=== PATIENT | male | born 1995 | race American Indian/Alaskan Native ===

== ENCOUNTER 2019-06-14 10:40 | Observation (INO) | payer MEDICAID, OTHER, SELFPAY ==
[2019-06-14] VITALS (11 sets, daily range): BP systolic 129–154; BP diastolic 58–84; PULSE 86–104; RESP 15–28; TEMP 36.3–37.1; O2SAT 92–99; BMI 58.0
--- NOTE | 2019-06-14 10:52 | DI.RAD.S_ITS ---
PROCEDURE: XR CHEST 1V INDICATIONS: dka TECHNIQUE: One view of the chest was acquired. COMPARISON: [facility], CHEST 2 VIEW, 05/16/2009, 21:08. [facility], CHEST 2 VIEW, 07/15/2010, 13:25. FINDINGS: Surgical changes and devices: None. Lungs and pleura: An incomplete inspiratory result is noted, causing a crowded appearance to the lung markings. Interstitial prominence is seen. No large pneumothorax or significant pleural effusions are seen. Mediastinum: Mediastinal contours appear normal. Heart size is normal. Bones and chest wall: No suspicious bony lesions. Overlying soft tissues appear unremarkable. IMPRESSION: Low lung volumes with interstitial prominence. Differential diagnosis includes pulmonary edema and artifact from an incomplete inspiratory result. As clinically appropriate, a short-term followup chest series (with PA and lateral views) performed in deep inspiration is suggested for further evaluation. Dictated by: Jake Martins M.D. on 06/14/2019 at 10:21 Approved by: Jake Martins M.D. on 06/14/2019 at 10:22
--- NOTE | 2019-06-14 11:00 | ED_ITS ---
HPI - General Adult General Chief complaint: Diabetic Problem Stated complaint: vomiting/high glucose 700s/hungry/thirsty yest Time Seen by Provider: 06/14/19 10:45 Source: patient Mode of arrival: Wheelchair Limitations: no limitations History of Present Illness HPI narrative: Patient is a 24 year old obese male presenting with elevated blood sugar. He is here at the request of his PCP. He had blood work done as an outpatient yesterday his blood sugar yesterday was about 700. He has been vomiting off and on for the last week no real abdominal pain. He denies feeling nauseated no vomiting now no abdominal pain. He does not have a history of diabetes he is currently not on any diabetic medication. Related Data Home Medications Medication Instructions Recorded Confirmed No Known Home Medications 06/14/19 06/14/19 Allergies Allergy/AdvReac Type Severity Reaction Status Date / Time No Known Drug Allergies Allergy Unknown Unverified 11/14/17 13:00 Review of Systems Review of Systems ROS Unobtainable: All systems reviewed & are unremarkable except as noted in HPI and below Constitutional Constitutional: Denies chills, Denies fever(s), Denies lethargy and Denies weakness Eyes Eyes: Denies change in vision, Denies eye discharge, Denies irritation and Denies loss of vision ENT Ears, Nose, Mouth, and Throat: Denies change in voice, Denies neck pain and Denies sore throat Cardiovascular Cardiovascular: Denies chest pain, Denies irregular heart rhythm, Denies lightheadedness, Denies palpitations, Denies dyspnea, Denies dyspnea on exertion and Denies orthopnea Respiratory Respiratory: Denies cough, Denies dyspnea, Denies dyspnea on exertion and Denies wheezing Gastrointestinal Gastrointestinal: Reports as per HPI Genitourinary Genitourinary: Denies hematuria, Denies flank pain, Denies urinary incontinence and Denies urinary urgency Musculoskeletal Musculoskeletal: Denies neck pain Integumentary/Breasts Skin/Breast: Denies pruritus, Denies erythema, Denies rash and Denies wounds Neurologic Neurologic: Denies loss of vision and Denies weakness Endocrine Endocrine: Denies palpitations Allergic/Immunologic Allergic/Immunologic: Denies wheezing Patient History Medical History Patient denies medical problems (Acute) Social History household members: family Smoking Status: Never smoker alcohol intake: never alcohol intake frequency: 0-2 drinks per day Substance Use Type: does not use Exam Initial Vital Signs Initial Vital Signs: Vital Signs Temperature 97.8 F 06/14/19 10:56 Pulse Rate 86 06/14/19 10:56 Respiratory Rate 16 06/14/19 10:56 Blood Pressure 154/84 H 06/14/19 10:56 Pulse Oximetry 97 06/14/19 10:56 GENERAL: Overweight well-appearing male and in no acute distress. HEENT: Head atraumatic,EOMI, pupils reactive CARDIOVASCULAR: Regular rate and rhythm without murmurs, rubs or gallops. RESPIRATORY: Breath sounds equal bilaterally, no wheezes rales or rhonchi. ABDOMEN: Soft, obese piece nontender no guarding no rebound EXTREMITIES: Normal range of motion, no clubbing or edema. Neurovascularly intact NEUROLOGICAL: Alert and oriented x4.Normal gait and speech. Cranial nerves II through XII grossly intact. SKIN: Warm, dry, no laceration, no petechiae, no rashes or lesions. Course Orders Ordered: ED Orders 06/14/19 10:52 XR chest 1V Stat EKG-12 Lead Stat 06/14/19 11:15 Complete Blood Count AUTO DIFF Stat Comprehensive Metabolic Panel Stat Ketones (Beta-Hydroxybutyrate) Stat Lactate (Lactic Acid) Stat Procalcitonin Stat Venous Blood Gas Stat 06/14/19 12:32 Blood Culture Stat Hemoglobin A1C% w Est Avg Glu Stat Discontinued Medications Sodium Chloride (Normal Saline 0.9%) 1,000 mls @ 1,000 mls/hr IV BOLUS ONE Stop: 06/14/19 11:51 Last Infusion: 06/14/19 13:25 Dose: 0 mls/hr Documented by: Admin: 06/14/19 11:47 Dose: 1,000 mls/hr Documented by: FRANCISCO Insulin Human Regular (Humulin R) 10 unit IV NOW ONE Stop: 06/14/19 13:10 Last Admin: 06/14/19 13:29 Dose: 10 unit Documented by: FRANCISCO Cosigned by: PHAM Vital Signs Vital signs: Vital Signs - 8 hr 06/14/19 10:56 06/14/19 11:36 06/14/19 12:00 Temperature 97.8 F Pulse Rate 94 H 90 101 H Respiratory Rate 18 28 H 24 Blood Pressure 154/84 H Blood Pressure [Right Arm] 154/84 H 134/74 130/74 Pulse Oximetry 97 92 98 06/14/19 13:00 Temperature Pulse Rate 93 H Respiratory Rate 27 H Blood Pressure Blood Pressure [Right Arm] 134/78 Pulse Oximetry 96 Medical Decision Making Lab Data Lab results reviewed: Yes I reviewed the patient's lab results. Lab results narrative: anion gap 18 Result diagrams: 06/14/19 11:15 06/14/19 11:15 Labs: Lab Results 06/14/19 06/14/19 06/14/19 Range/Units 11:15 11:15 11:15 WBC 9.9 (4.5-11.0) X10^3/uL RBC 5.29 (4.5-5.9) X10^6/uL Hgb 13.7 (13.5-17.5) g/dL Hct 40.7 L (41-53) % MCV 77.0 L (80-100) fL MCH 25.9 L (26-34) PG MCHC 33.6 (30-36) % RDW 17.6 H (11.6-14.8) % Plt Count 227 (150-400) X10^3/uL Neut % (Auto) 62.7 (50-75) % Lymph % (Auto) 30.6 (25-40) % [place] % (Auto) 4.8 (3-14) % Eos % (Auto) 0.8 L (2-4) % Baso % (Auto) 1.1 (0-2) % Neut # (Auto) 6200 (3245-5483) /uL Lymph # (Auto) 3000 (3711-9114) /uL [place] # (Auto) 500 (0-900) /uL Eos # (Auto) 100 (0-450) /uL Baso # (Auto) 100 (0-100) /uL VBG pH (7.33-7.43) VBG pCO2 (45-50) mmHg VBG pO2 (35-45) mmHg VBG HCO3 (23-28) mmol/L VBG Total CO2 (24-29) mmol/L VBG O2 Saturation (70-75) % VBG Base Excess (0-4) mmol/L Sodium 134 L (137-145) mmol/L Potassium 3.3 L (3.4-5.1) mmol/L Chloride 99 (98-107) mmol/L Carbon Dioxide 17 L (22-32) mmol/L BUN 10 (9-20) mg/dL Creatinine 0.80 (0.66-1.25) mg/dL Estimated GFR > 60.0 (>60) mL/min BUN/Creatinine Ratio 12.5 (6-22) Glucose 449 H (70-100) mg/dL Hemoglobin A1c (4.0-6.0) % Lactate (0.7-2.1) mmol/L Calcium 8.1 L (8.4-10.2) mg/dL Total Bilirubin 0.6 (0.2-1.3) mg/dL AST 21 (17-59) IU/L ALT 29 (<50) IU/L Alkaline Phosphatase 110 (38-126) U/L Total Protein 8.2 (6.3-8.2) g/dL Albumin 4.1 (3.5-5.0) g/dL Globulin 4.1 (1.7-4.1) g/dL Albumin/Globulin Ratio 1.0 (1.0-2.8) Procalcitonin < 0.05 (<0.5) ng/mL Ketones 6.50 H (<0.27) mmol/L 06/14/19 06/14/19 06/14/19 Range/Units 11:15 11:15 12:32 WBC (4.5-11.0) X10^3/uL RBC (4.5-5.9) X10^6/uL Hgb (13.5-17.5) g/dL Hct (41-53) % MCV (80-100) fL MCH (26-34) PG MCHC (30-36) % RDW (11.6-14.8) % Plt Count (150-400) X10^3/uL Neut % (Auto) (50-75) % Lymph % (Auto) (25-40) % [place] % (Auto) (3-14) % Eos % (Auto) (2-4) % Baso % (Auto) (0-2) % Neut # (Auto) (6580-4755) /uL Lymph # (Auto) (6550-0358) /uL [place] # (Auto) (0-900) /uL Eos # (Auto) (0-450) /uL Baso # (Auto) (0-100) /uL VBG pH 7.35 (7.33-7.43) VBG pCO2 40.4 L (45-50) mmHg VBG pO2 23 L (35-45) mmHg VBG HCO3 22 L (23-28) mmol/L VBG Total CO2 23 L (24-29) mmol/L VBG O2 Saturation 37 L (70-75) % VBG Base Excess -4.0 L (0-4) mmol/L Sodium (137-145) mmol/L Potassium (3.4-5.1) mmol/L Chloride (98-107) mmol/L Carbon Dioxide (22-32) mmol/L BUN (9-20) mg/dL Creatinine (0.66-1.25) mg/dL Estimated GFR (>60) mL/min BUN/Creatinine Ratio (6-22) Glucose (70-100) mg/dL Hemoglobin A1c 11.8 H (4.0-6.0) % Lactate 1.1 (0.7-2.1) mmol/L Calcium (8.4-10.2) mg/dL Total Bilirubin (0.2-1.3) mg/dL AST (17-59) IU/L ALT (<50) IU/L Alkaline Phosphatase (38-126) U/L Total Protein (6.3-8.2) g/dL Albumin (3.5-5.0) g/dL Globulin (1.7-4.1) g/dL Albumin/Globulin Ratio (1.0-2.8) Procalcitonin (<0.5) ng/mL Ketones (<0.27) mmol/L Point of Care Testing Glucose POC 376 Urine Dip Bedside Urine Glucose 500 mg/dl Bedside Urine Bilirubin - Negative Bedside Urine Ketone +++ 80 Urine Specific Pauline 1.020 Bedside Urine Occult Blood - Negative Bedside Urine pH 5.5 Bedside Urine Protein +/- 15 Bedside Urine Urobilinogen - Negative Bedside Urine Nitrite - Negative Bedside Urine Leukocytes - Negative Esterase Point of care testing: Point of Care Testing Glucose POC 376 Urine Dip Bedside Urine Glucose 500 mg/dl Bedside Urine Bilirubin - Negative Bedside Urine Ketone +++ 80 Urine Specific Pauline 1.020 Bedside Urine Occult Blood - Negative Bedside Urine pH 5.5 Bedside Urine Protein +/- 15 Bedside Urine Urobilinogen - Negative Bedside Urine Nitrite - Negative Bedside Urine Leukocytes - Negative Esterase Imaging Data Chest x-ray: Radiologist's impression: PROCEDURE: XR CHEST 1V INDICATIONS: dka TECHNIQUE: One view of the chest was acquired. COMPARISON: [facility], , CHEST 2 VIEW, 05/16/2009, 21:08. [facility], CHEST 2 VIEW, 07/15/2010, 13:25. FINDINGS: Surgical changes and devices: None. Lungs and pleura: An incomplete inspiratory result is noted, causing a crowded appearance to the lung markings. Interstitial prominence is seen. No large pneumothorax or significant pleural effusions are seen. Mediastinum: Mediastinal contours appear normal. Heart size is normal. Bones and chest wall: No suspicious bony lesions. Overlying soft tissues appear unremarkable. IMPRESSION: Low lung volumes with interstitial prominence. Differential diagnosis includes pulmonary edema and artifact from an incomplete inspiratory result. As clinically appropriate, a short-term followup chest series (with PA and lateral views) performed in deep inspiration is suggested for further evaluation. Dictated by: Jake Martins M.D. on 06/14/2019 at 10:21 Approved by: Jake Martins M.D. on 06/14/2019 at 10:22 MDM Narrative Medical decision making narrative: Patient is an overweight young male with newly diagnosed diabetes. He has an anion gap and ketones. He is no longer vomiting in the ED in fact he has not vomited once Zofran and IV fluids have helped him. He overall is better. He is not acidotic, but does have quite elevated ketones and glucose, along with mild we elevated anion gap. Dr. lynn has been updated patient's symptoms test results. Patient admitted to observation Discharge Plan Departure Patient Disposition: Admitted as Observation Clinical Impression: Hyperglycemia Discharge Date/Time: 06/14/19 13:45 Admit Date/Time: 06/14/19 13:15 Admit Provider: Cathleen Lynn
[2019-06-14 11:31] LABS: HCO3 VBG 22 mmol/L (23-28); Oxygen Saturation VBG 37 % (70-75); PCO2 VBG 40.4 mmHg (45-50); PO2 VBG 23 mmHg (35-45); Total CO2 VBG 23 mmol/L (24-29); pH VBG 7.35 (7.33-7.43)
[2019-06-14] MEDS: SODIUM CHLORIDE 0.9% 1,000 ML 1000 ML IV (11:47)
[2019-06-14 11:50] LABS: Add Manual Diff / Slide Review NO; Basophils Absolute Auto 100 /uL (0-100); Basophils Percent Auto 1.1 % (0-2); Eosinophils Absolute Auto 100 /uL (0-450); Eosinophils Percent Auto 0.8 % (2-4); Hematocrit 40.7 % (41-53); Hemoglobin 13.7 g/dL (13.5-17.5); Lymphocytes Absolute Auto 3000 /uL (1100-4500); Lymphocytes Percent Auto 30.6 % (25-40); Mean Corpuscular HGB Conc 33.6 % (30-36); Mean Corpuscular Hemoglobin 25.9 PG (26-34); Monocytes Absolute Auto 500 /uL (0-900); Monocytes Percent Auto 4.8 % (3-14); Neutrophils Absolute Auto 6200 /uL (1500-7000); Neutrophils Percent Auto 62.7 % (50-75); Platelet Count 227 X10^3/uL (150-400); Red Blood Cell Count 5.29 X10^6/uL (4.5-5.9); Red Cell Distribution Width 17.6 % (11.6-14.8); White Blood Cell Count 9.9 X10^3/uL (4.5-11.0)
[2019-06-14 12:15] LABS: Lactate (Lactic Acid) 1.1 mmol/L (0.7-2.1)
[2019-06-14 12:16] LABS: Alanine Aminotransferase 29 IU/L (<50); Albumin 4.1 g/dL (3.5-5.0); Alkaline Phosphatase 110 U/L (38-126); Aspartate Aminotransferase 21 IU/L (17-59); BUN Creatinine Ratio 12.5 (6-22); Bilirubin Total 0.6 mg/dL (0.2-1.3); Blood Urea Nitrogen 10 mg/dL (9-20); Calcium 8.1 mg/dL (8.4-10.2); Carbon Dioxide 17 mmol/L (22-32); Chloride 99 mmol/L (98-107); Estimated Glomerular Filt Rate > 60.0 mL/min (>60); Globulin 4.1 g/dL (1.7-4.1); Glucose 449 mg/dL (70-100); HEMOLYSIS < 15 (0-50); Potassium 3.3 mmol/L (3.4-5.1); Sodium 134 mmol/L (137-145); Total Protein 8.2 g/dL (6.3-8.2)
[2019-06-14 12:50] LABS: Procalcitonin < 0.05 ng/mL (<0.5)
[2019-06-14 13:07] LABS: Hemoglobin A1C% w Est Avg Glu 11.8 % (4.0-6.0)
[2019-06-14] MEDS: INSULIN REGULAR 100 UNIT/ML 3 ML VIAL 10 UNIT IV (13:29)
--- NOTE | 2019-06-14 15:23 | PC.NURSE ---
pt admitted from ed with current blood glu 339, lungs clear and vss- new dx of type 2 dm
[2019-06-14] MEDS: INSULIN ASPART 100 UNIT/ML INSULN PEN SUBCUT ×2 (16:29→20:22)
[2019-06-14] MEDS: METFORMIN HCL 500 MG TABLET 1000 MG PO (16:30)
[2019-06-14] MEDS: SODIUM CHLORIDE 0.9% 1,000 ML 200 ML IV ×2 (16:32→20:56)
[2019-06-14 17:42] LABS: Bacteria Urine None Seen; WBC Urine None Seen (0-5/HPF)
[2019-06-14 17:58] LABS: Culture Indicated Urine Cult Not Indicated
[2019-06-14 18:00] LABS: RBC Urine None Seen (0-5/HPF)
[2019-06-14 18:04] LABS: Creatinine Urine Random 35.3 mg/dL; Protein (Total) Urine Random 24 mg/dL (0-12); Protein Creatinine Ratio Urine 0.67 GRAM/24H
[2019-06-14] MEDS: HEPARIN 5,000 UNIT/ML VIAL 5000 UNIT SUBCUT (20:21)
[2019-06-14] MEDS: INSULIN GLARGINE 100 UNIT/ML 3ML PEN 20 UNIT SUBCUT (20:22)
[2019-06-14] MEDS: POTASSIUM CHLORIDE 20 MEQ/15 ML UDC 40 MEQ PO (22:33)
--- NOTE | 2019-06-14 22:50 | PC.NURSE ---
Patient has been resting in bed most of the shift. Up to the bathroom independently. Blood sugars in the 300 range. Patient has been A&O, calm and cooperative.
--- NOTE | 2019-06-14 23:15 | PM.HP.1 ---
History of Present Illness History of Present Illness Date Patient Seen: 06/14/19 Time Patient Seen: 20:35 Chief complaint: vomiting/high glucose 700s/hungry/thirsty yest Narrative: Mr. Kun Samson is a 24-year-old male with no significant prior medical history and on no home medications who presents to the ER for high blood sugar. The patient was seen at the [facility] yesterday for nausea and vomiting at the urging of his mother. The patient has had nausea and vomiting for approximately 10 days during which time he thought he was getting better but relapsed over the last few days. He went to the clinic yesterday and had labs drawn and was notified that his blood sugar was 700 and that he needed to go to the emergency room today. The patient does acknowledge frequent urination and excessive thirst and hunger. He has had no other complaints recent illness and denies fevers or chills has had no headaches or dizziness, nasal congestion or sore throat. He denies chest pain or palpitations and has no shortness of breath cough or wheezing. He denies abdominal pain or heartburn and has nausea vomiting as discussed above. He reports no changes in bowel habits and acknowledges frequent urination without hematuria urgency or burning. Arrival to the ER the patient has a temperature of 97.8?, heart rate of 86, blood pressure 154/84, respirations 16 saturating 97% on room air. A VBG is drawn which demonstrates a pH of 7.35, PO2 of 40.4, pCO2 of 23, bicarb of 22 a base excess of -4. Chest x-ray of stained which shows poor of 77 and hypochromic with an MCH of 25.9. Chemistries he has a sodium of 134, potassium of 3.3, a BUN of 10 with creatinine 0.8 and a blood sugar of 449. On urinalysis he is positive for protein urea as a protein creatinine ratio of 0.67. Procalcitonin is less than 0.05. Ketones are 6.5. The patient is given 10 units of insulin in the emergency department and a 1 L normal saline bolus. Patient is admitted to the medicine service for new onset diabetes. Patient History Medical History Patient denies medical problems (Acute) Family & Social History Family History (Updated 06/15/19 @ 00:58 by SEAN Ponce) Father Diabetes mellitus Mother Diabetes mellitus Brother No known problems Sister No known problems Social History: household members family Prior Living Arrangements House Safety & Behavioral: Feels Safe in Current Yes Environment Been Physically Hurt or No Threatened By a Person Suicidal Ideation Description None Suicide Plan Description No Plan Tobacco & Substance use: Smoking Status Never smoker alcohol intake never alcohol intake frequency 0-2 drinks per day Substance Use Type does not use Comment: The patient is single and lives with his family in a single family house. His mother father both have diabetes and he has 1 brother and 2 sisters described as in good health. He reports no known history of cancer, heart disease or hypertension in the family. The patient receives is primary health care from the [facility]. 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 Smoking: Patient denies use of tobacco products. Alcohol: Patient denies consumption of alcohol. Substance use: The patient denies use of recreational pharmaceuticals, herbal or cannabis products. Advanced directives: The patient states his desire to be FULL CODE. He designates his mother Hiral Samson to be his surrogate decision maker. Meds Home Medications and Allergies Home Medications Medication Instructions Recorded Confirmed Type No Known Home Medications 06/14/19 06/14/19 History Allergies Allergy/AdvReac Type Severity Reaction Status Date / Time No Known Drug Allergies Allergy Unknown Unverified 11/14/17 13:00 Review of Systems Review of Systems ROS Unobtainable: All systems reviewed & are unremarkable except as noted in HPI and below Exam Vital Signs (past 8 hours): - 06/14/19 17:34 06/14/19 20:23 06/14/19 22:52 Temperature 97.5 F L Pulse Rate 104 H 94 H Respiratory Rate 22 Blood Pressure 140/72 Pulse Oximetry 99 98 98 06/14/19 23:30 Temperature 97.4 F L Pulse Rate 90 Respiratory Rate 18 Blood Pressure 141/80 H Pulse Oximetry 97 Fraction of Inspired Oxygen 0 Oxygen Delivery Method Room Air Oxygen Flow Rate 0 Narrative Exam Narrative: GENERAL APPEARANCE: well developed, super morbidly obese with a BMI of 58.1, in no acute distress. HEENT: Normocephalic, PERRLA, conjunctiva clear, EOMs intact without nystagmus, no sinus tenderness to percussion, no rhinorrhea, mucous membranes are moist and pink without lesions or exudate. NECK/THYROID: neck supple, no JVD, no thyromegaly, trachea midline. LYMPH NODES: no cervical or supraclavicular lymphadenopathy. SKIN: [place], warm and dry, no suspicious lesions, no rashes, ulcerations. HEART: regular rate and rhythm, S1-S2, no murmur, no rubs or gallops, brisk capillary refill, 1+ bilateral dorsalis pedis pulses, no edema LUNGS: Breath sounds diminished, clear to auscultation bilaterally, no coarseness crackles or wheezing, no cough present CHEST: Symmetrical movement, no accessory muscle use. ABDOMEN: Soft, no abdominal tenderness, no guarding or peritoneal signs, no organomegaly, exam limited by body habitus, active bowel tones. BACK: Normal curvature, nontender to palpation, no CVA tenderness on percussion EXTREMITIES: moves all extremities, strength is 5/5 and symmetrical, no deformities or joint effusions. NEUROLOGIC: AAO x4, no focal neurologic deficits, sensation intact to light touch, hearing grossly normal to speech. PSYCH: alert, cooperative, cognitive function intact, good eye contact, appropriate with stable behavior Objective Labs Result Diagrams: 06/14/19 11:15 06/14/19 23:55 Labs: Laboratory Results - last 24 hr 06/14/19 06/14/19 06/14/19 11:15 11:15 11:15 WBC 9.9 RBC 5.29 Hgb 13.7 Hct 40.7 L MCV 77.0 L MCH 25.9 L MCHC 33.6 RDW 17.6 H Plt Count 227 Neut % (Auto) 62.7 Lymph % (Auto) 30.6 [place] % (Auto) 4.8 Eos % (Auto) 0.8 L Baso % (Auto) 1.1 Neut # (Auto) 6200 Lymph # (Auto) 3000 [place] # (Auto) 500 Eos # (Auto) 100 Baso # (Auto) 100 VBG pH VBG pCO2 VBG pO2 VBG HCO3 VBG Total CO2 VBG O2 Saturation VBG Base Excess Sodium 134 L Potassium 3.3 L Chloride 99 Carbon Dioxide 17 L BUN 10 Creatinine 0.80 Estimated GFR > 60.0 BUN/Creatinine Ratio 12.5 Glucose 449 H Hemoglobin A1c Lactate Calcium 8.1 L Phosphorus Magnesium Total Bilirubin 0.6 AST 21 ALT 29 Alkaline Phosphatase 110 Total Protein 8.2 Albumin 4.1 Globulin 4.1 Albumin/Globulin Ratio 1.0 Procalcitonin < 0.05 Urine RBC Urine WBC Urine Bacteria Ur Culture Indicated? U Random Total Protein Urine Creatinine Protein/Creatinin Ratio Nasal Screen MRSA (PCR) Ketones 6.50 H 06/14/19 06/14/19 06/14/19 11:15 11:15 12:32 WBC RBC Hgb Hct MCV MCH MCHC RDW Plt Count Neut % (Auto) Lymph % (Auto) [place] % (Auto) Eos % (Auto) Baso % (Auto) Neut # (Auto) Lymph # (Auto) [place] # (Auto) Eos # (Auto) Baso # (Auto) VBG pH 7.35 VBG pCO2 40.4 L VBG pO2 23 L VBG HCO3 22 L VBG Total CO2 23 L VBG O2 Saturation 37 L VBG Base Excess -4.0 L Sodium Potassium Chloride Carbon Dioxide BUN Creatinine Estimated GFR BUN/Creatinine Ratio Glucose Hemoglobin A1c 11.8 H Lactate 1.1 Calcium Phosphorus Magnesium Total Bilirubin AST ALT Alkaline Phosphatase Total Protein Albumin Globulin Albumin/Globulin Ratio Procalcitonin Urine RBC Urine WBC Urine Bacteria Ur Culture Indicated? U Random Total Protein Urine Creatinine Protein/Creatinin Ratio Nasal Screen MRSA (PCR) Ketones 06/14/19 06/14/19 06/14/19 12:50 12:51 14:06 WBC RBC Hgb Hct MCV MCH MCHC RDW Plt Count Neut % (Auto) Lymph % (Auto) [place] % (Auto) Eos % (Auto) Baso % (Auto) Neut # (Auto) Lymph # (Auto) [place] # (Auto) Eos # (Auto) Baso # (Auto) VBG pH VBG pCO2 VBG pO2 VBG HCO3 VBG Total CO2 VBG O2 Saturation VBG Base Excess Sodium Potassium Chloride Carbon Dioxide BUN Creatinine Estimated GFR BUN/Creatinine Ratio Glucose Hemoglobin A1c Lactate Calcium Phosphorus Magnesium Total Bilirubin AST ALT Alkaline Phosphatase Total Protein Albumin Globulin Albumin/Globulin Ratio Procalcitonin Urine RBC None seen Urine WBC None seen Urine Bacteria None seen Ur Culture Indicated? Cult not indicated U Random Total Protein 24 H Urine Creatinine 35.3 Protein/Creatinin Ratio 0.67 Nasal Screen MRSA (PCR) Negative for mrsa Ketones 06/14/19 06/14/19 23:55 23:55 WBC RBC Hgb Hct MCV MCH MCHC RDW Plt Count Neut % (Auto) Lymph % (Auto) [place] % (Auto) Eos % (Auto) Baso % (Auto) Neut # (Auto) Lymph # (Auto) [place] # (Auto) Eos # (Auto) Baso # (Auto) VBG pH VBG pCO2 VBG pO2 VBG HCO3 VBG Total CO2 VBG O2 Saturation VBG Base Excess Sodium 137 Potassium 3.5 Chloride 104 Carbon Dioxide 18 L BUN 5 L Creatinine 0.80 Estimated GFR > 60.0 BUN/Creatinine Ratio 6.3 Glucose 278 H D Hemoglobin A1c Lactate Calcium 7.7 L Phosphorus 2.9 Magnesium 1.8 Total Bilirubin AST ALT Alkaline Phosphatase Total Protein Albumin Globulin Albumin/Globulin Ratio Procalcitonin Urine RBC Urine WBC Urine Bacteria Ur Culture Indicated? U Random Total Protein Urine Creatinine Protein/Creatinin Ratio Nasal Screen MRSA (PCR) Ketones Assessment & Plan Assessment & Plan narrative: The patient is a 24-year-old [place] male with a new diagnosis of diabetes with a positive family history in both mother and father. Patient has hyperglycemia without acidosis with ketosis. 1. New onset diabetes, acute, present on admission, active. -patient acknowledges polydipsia, polyuria, polyphagia. No other complaints of medical problems or prodromal symptoms other than nausea and vomiting for the last 10 days. No evidence of infective process procalcitonin is less than 0.05. -lab testing drawn yesterday at request of PCP shows blood glucose of 700, blood glucose on arrival to the emergency department was 449 with ketones of 6.5, hemoglobin A1c of 11.8. VBG shows pH of 7.35, pCO2 of 23, bicarbonate of 22 with a base excess of -4. -the patient is given 10 units of IV insulin in the emergency department along with a normal saline bolus. -ordered Lantus 20 units subcutaneous daily, correctional insulin high-dose range, metformin 1000 mg twice daily. -will track glucose levels AC and HS. -dietary consult for new onset diabetes, protracted discussion and teaching regarding diabetes, diet and lifestyle modification. 2. Microcytic hypochromic anemia, present on admission, active. -adequate hemoglobin at 13.7 with a low hematocrit of 40.7, MCV is 77 and MCH is 25.9. -most likely related to dietary intake and/or iron absorption. -will recheck CBC following rehydration. -patient will benefit from ferrous sulfate 325 mg daily with aspirin to enhance absorption, this could be instituted in followed on outpatient basis. 3. Super morbid obesity, present on admission, active -patient with a BMI of 58.1 -discussed relationship of weight with diabetes with the patient. -dietitian to consult. VTE prophylaxis: Bilateral SCDs, heparin 5000 units daily. The patient is admitted to the hospital related to the severity of symptoms and risk for complications and adverse events. Will achieve glycemic control and the patient is admitted as observation with expected length of stay to be less than 2 midnights. Quality VTE Deep Vein Thrombosis/Pulmonary Embolism Present on Admission: No
[2019-06-15] VITALS (7 sets, daily range): BP systolic 142–152; BP diastolic 65–81; PULSE 85–93; RESP 16–24; TEMP 36.7–37; O2SAT 97–99
[2019-06-15 00:14] LABS: Magnesium 1.8 mg/dL (1.6-2.3)
[2019-06-15 00:15] LABS: BUN Creatinine Ratio 6.3 (6-22); Blood Urea Nitrogen 5 mg/dL (9-20); Calcium 7.7 mg/dL (8.4-10.2); Carbon Dioxide 18 mmol/L (22-32); Chloride 104 mmol/L (98-107); Estimated Glomerular Filt Rate > 60.0 mL/min (>60); Glucose 278 mg/dL (70-100); HEMOLYSIS < 15 (0-50); Phosphorous 2.9 mg/dL (2.5-4.5); Potassium 3.5 mmol/L (3.4-5.1); Sodium 137 mmol/L (137-145)
--- NOTE | 2019-06-15 01:14 | PC.NURSE ---
Patient A/O x4, calm, cooperative, open to diabetic teaching. Plan to check CBG at 0230. VSS, Denies pain, IVF NS @ 150ml/hr per order. Patient transferred to room 220, no distress, report given to Jannie SRINIVASAN.
[2019-06-15] MEDS: SODIUM CHLORIDE 0.9% 1,000 ML 150 ML IV ×2 (01:19→07:59)
[2019-06-15 05:46] LABS: Add Manual Diff / Slide Review NO; Basophils Absolute Auto 100 /uL (0-100); Basophils Percent Auto 0.9 % (0-2); Eosinophils Absolute Auto 200 /uL (0-450); Eosinophils Percent Auto 2.2 % (2-4); Lymphocytes Absolute Auto 3500 /uL (1100-4500); Lymphocytes Percent Auto 37.5 % (25-40); Mean Corpuscular HGB Conc 32.4 % (30-36); Mean Corpuscular Hemoglobin 25.3 PG (26-34); Mean Corpuscular Volume 77.9 fL (80-100); Monocytes Absolute Auto 500 /uL (0-900); Monocytes Percent Auto 5.7 % (3-14); Neutrophils Absolute Auto 5100 /uL (1500-7000); Neutrophils Percent Auto 53.7 % (50-75); Platelet Count 208 X10^3/uL (150-400); Red Blood Cell Count 5.14 X10^6/uL (4.5-5.9); Red Cell Distribution Width 17.9 % (11.6-14.8); White Blood Cell Count 9.4 X10^3/uL (4.5-11.0)
[2019-06-15 05:52] LABS: Blood Urea Nitrogen 4 mg/dL (9-20); Calcium 7.8 mg/dL (8.4-10.2); Carbon Dioxide 15 mmol/L (22-32); Chloride 106 mmol/L (98-107); Cholesterol 119 mg/dL (140-199); Estimated Glomerular Filt Rate > 60.0 mL/min (>60); Glucose 275 mg/dL (70-100); HDL Cholesterol 24 mg/dL (40-60); HEMOLYSIS < 15 (0-50); LDL Cholesterol Calculated 20 mg/dL (<100); Magnesium 1.8 mg/dL (1.6-2.3); Potassium 3.4 mmol/L (3.4-5.1); Sodium 138 mmol/L (137-145); Triglycerides 375 mg/dL (35-150)
[2019-06-15 06:37] LABS: TSH w/ Reflex to FT4 0.67 uIU/mL (0.47-4.68)
[2019-06-15] MEDS: METFORMIN HCL 500 MG TABLET 1000 MG PO (08:41)
[2019-06-15] MEDS: HEPARIN 5,000 UNIT/ML VIAL 5000 UNIT SUBCUT (08:42)
[2019-06-15] MEDS: INSULIN ASPART 100 UNIT/ML INSULN PEN SUBCUT ×2 (08:42→12:44)
--- NOTE | 2019-06-15 10:13 | PM.DS.1 ---
History of Present Illness History of Present Illness Date Patient Seen: 06/14/19 Chief complaint: vomiting/high glucose 700s/hungry/thirsty yest Narrative: Written by Delfin ESTRADA: Mr. Kun Samson is a 24-year-old male with no significant prior medical history and on no home medications who presents to the ER for high blood sugar. The patient was seen at the [facility] yesterday for nausea and vomiting at the urging of his mother. The patient has had nausea and vomiting for approximately 10 days during which time he thought he was getting better but relapsed over the last few days. He went to the clinic yesterday and had labs drawn and was notified that his blood sugar was 700 and that he needed to go to the emergency room today. The patient does acknowledge frequent urination and excessive thirst and hunger. He has had no other complaints recent illness and denies fevers or chills has had no headaches or dizziness, nasal congestion or sore throat. He denies chest pain or palpitations and has no shortness of breath cough or wheezing. He denies abdominal pain or heartburn and has nausea vomiting as discussed above. He reports no changes in bowel habits and acknowledges frequent urination without hematuria urgency or burning. Arrival to the ER the patient has a temperature of 97.8?, heart rate of 86, blood pressure 154/84, respirations 16 saturating 97% on room air. A VBG is drawn which demonstrates a pH of 7.35, PO2 of 40.4, pCO2 of 23, bicarb of 22 a base excess of -4. Chest x-ray of stained which shows poor of 77 and hypochromic with an MCH of 25.9. Chemistries he has a sodium of 134, potassium of 3.3, a BUN of 10 with creatinine 0.8 and a blood sugar of 449. On urinalysis he is positive for protein urea as a protein creatinine ratio of 0.67. Procalcitonin is less than 0.05. Ketones are 6.5. The patient is given 10 units of insulin in the emergency department and a 1 L normal saline bolus. Patient is admitted to the medicine service for new onset diabetes. Discharge Providers Provider Date of admission: 06/14/19 13:15 Discharge Date: 06/15/19 Consults: 06/14/19 21:17 Consult to Dietitian, Adult Routine Comment: Reason For Exam: New Dx Diabetes, morbid obesity Consult to Discharge Planning Routine Comment: Discharge provider: Cathleen Lynn DO Summary Hospital Course Discharge Diagnosis: 1. New onset diabetes, acute, present on admission. Active. 2. Possible iron deficiency anemia, present on admission. Stable. 3. Super morbid obesity, chronic, present on admission. Stable. Hospital Course: Kun Samson is a 24-year-old male who has no past medical history who presented to the ED at the recommendation of his primary care office for hyperglycemia with associated nausea and vomiting. 1. New onset diabetes, acute, present on admission. Active. -Patient endorses polydipsia, polyuria, and polyphagia. No other complaints of medical problems or prodromal symptoms other than nausea and vomiting for the last 10 days. No evidence of infectious process. -The day prior to admission the patient had laboratory evaluation by PCP which demonstrated hyperglycemia of 700. Blood glucose on arrival to the ED was 449 with ketones of 6.5 and hemoglobin A1c of 11.8%. VBG demonstrated pH of 7.35, pCO2 of 23, bicarbonate of 22 with a base excess of -4. -Received regular insulin 10 units IV insulin and 1 L NS in ED. Continued IV fluids until adequately hydrated then discontinued. -Started and continued Lantus 20 units SQ daily at bedtime and metformin 1000 mg twice daily. Discharged with blood glucose meter kit, glucose tabs and hypoglycemia Education. -Continued ACHS blood glucose checks and high-dose correctional scale insulin. -Recommend outpatient diabetic Education and dietitian consult for new onset diabetes per PCP. -Admitting provider and myself spent several hours providing diabetic teaching and lifestyle modification including: Diet and exercise. -Nursing staff provided insulin teaching. 2. Possible iron deficiency anemia, present on admission. Stable. -Initial hemoglobin 13.7 with a low hematocrit of 40.7, MCV is 77 and MCH is 25.9. -Most likely related to dietary intake and/or iron absorption. -Consider iron studies and initiation of iron supplementation with ferrous sulfate 325 mg every other day and aspirin to enhance absorption deferred to PCP on outpatient basis. 3. Super morbid obesity, chronic, present on admission. Stable. -BMI of 58.1 -Admitting provider and myself spent several hours providing diabetic teaching and lifestyle modification including: Diet and exercise. -Recommend outpatient diabetic Education and dietitian consult for new onset diabetes per PCP. Status at Discharge Functional status at discharge: independent ambulation Exam Vital Signs (past 8 hours): - 06/15/19 05:20 06/15/19 07:45 06/15/19 09:24 Temperature 98.0 F 98.6 F Pulse Rate 92 H 93 H Respiratory Rate 24 17 Blood Pressure 152/81 H 142/73 H Pulse Oximetry 98 98 98 06/15/19 11:06 Temperature 98.2 F Pulse Rate 90 Respiratory Rate 16 Blood Pressure 143/70 H Pulse Oximetry 98 Fraction of Inspired Oxygen 0 Oxygen Delivery Method Room Air Oxygen Flow Rate 0 Narrative Exam Narrative: General: Young gentleman sitting in bed and in no acute distress, well-developed, well-nourished, appropriately interactive. HEENT: Normocephalic, atraumatic. External ears without defect. Pupils equal, round, and reactive to light. Anicteric sclerae, moist conjunctivae, and no lid lag. Oropharynx free of erythema and cobble stoning with moist mucosa. Neck: Supple with full range of motion. No jugular venous distension. No lymphadenopathy or thyromegaly. Cardiovascular: Regular rate and rhythm without murmurs, rubs, or gallops appreciated Pulmonary: Clear to auscultation bilaterally without crackles, wheezes, or rhonchi. Normal respiratory effort with no use of accessory muscles. Abdomen: Soft, obese, bowel sounds present, nontender, nondistended. No hepatosplenomegaly or masses appreciated. Extremities: No clubbing, cyanosis, or edema. Skin: Normal temperature, turgor, and texture; no rash, ulcers, or subcutaneous nodules appreciated. Neurological: Cranial nerves grossly intact. Psychiatric: Normal mood and affect. Alert and oriented to person, place, and time. Objective Labs Result Diagrams: 06/15/19 05:30 06/15/19 05:30 Labs: Laboratory Results - last 24 hr 06/14/19 06/14/19 06/14/19 12:50 12:51 14:06 WBC RBC Hgb Hct MCV MCH MCHC RDW Plt Count Neut % (Auto) Lymph % (Auto) [place] % (Auto) Eos % (Auto) Baso % (Auto) Neut # (Auto) Lymph # (Auto) [place] # (Auto) Eos # (Auto) Baso # (Auto) Sodium Potassium Chloride Carbon Dioxide BUN Creatinine Estimated GFR BUN/Creatinine Ratio Glucose Calcium Phosphorus Magnesium Triglycerides Cholesterol LDL Cholesterol, Calc HDL Cholesterol TSH Urine RBC None seen Urine WBC None seen Urine Bacteria None seen Ur Culture Indicated? Cult not indicated U Random Total Protein 24 H Urine Creatinine 35.3 Protein/Creatinin Ratio 0.67 Nasal Screen MRSA (PCR) Negative for mrsa 06/14/19 06/14/19 06/15/19 23:55 23:55 05:30 WBC 9.4 RBC 5.14 Hgb 13.0 L Hct 40.0 L MCV 77.9 L MCH 25.3 L MCHC 32.4 RDW 17.9 H Plt Count 208 Neut % (Auto) 53.7 Lymph % (Auto) 37.5 [place] % (Auto) 5.7 Eos % (Auto) 2.2 Baso % (Auto) 0.9 Neut # (Auto) 5100 Lymph # (Auto) 3500 [place] # (Auto) 500 Eos # (Auto) 200 Baso # (Auto) 100 Sodium 137 Potassium 3.5 Chloride 104 Carbon Dioxide 18 L BUN 5 L Creatinine 0.80 Estimated GFR > 60.0 BUN/Creatinine Ratio 6.3 Glucose 278 H D Calcium 7.7 L Phosphorus 2.9 Magnesium 1.8 Triglycerides Cholesterol LDL Cholesterol, Calc HDL Cholesterol TSH Urine RBC Urine WBC Urine Bacteria Ur Culture Indicated? U Random Total Protein Urine Creatinine Protein/Creatinin Ratio Nasal Screen MRSA (PCR) 06/15/19 06/15/19 06/15/19 05:30 05:30 05:30 WBC RBC Hgb Hct MCV MCH MCHC RDW Plt Count Neut % (Auto) Lymph % (Auto) [place] % (Auto) Eos % (Auto) Baso % (Auto) Neut # (Auto) Lymph # (Auto) [place] # (Auto) Eos # (Auto) Baso # (Auto) Sodium 138 Potassium 3.4 Chloride 106 Carbon Dioxide 15 L BUN 4 L Creatinine 0.80 Estimated GFR > 60.0 BUN/Creatinine Ratio 5.0 L Glucose 275 H Calcium 7.8 L Phosphorus Magnesium 1.8 Triglycerides 375 H Cholesterol 119 L LDL Cholesterol, Calc 20 HDL Cholesterol 24 L TSH 0.67 Urine RBC Urine WBC Urine Bacteria Ur Culture Indicated? U Random Total Protein Urine Creatinine Protein/Creatinin Ratio Nasal Screen MRSA (PCR) Discharge Plan Discharge Plan Patient Disposition: Home Discharge comment: Your being discharged home. You have diabetes mellitus type 2. Your hemoglobin A1c was 11.7 %. You have been prescribed metformin 1000 mg twice daily to take with breakfast and dinner. Metformin may cause diarrhea but is usually limited and will resolve within 2 weeks. You have also been prescribed Lantus which is long-acting insulin to lower your baseline blood glucose level 20 units daily at bedtime. You have been provided insulin teaching. You have also been prescribed a blood glucose monitoring system to check your blood glucose levels in the morning fasting before the 1st meal of the day and 2 hours after each meal (breakfast, lunch, and dinner). Your goal fasting blood glucose should be under 120 and your goal blood glucose 2 hours after meals is under 180. Please follow-up with your primary care provider 1st thing tomorrow to continue diabetic management. Your also prescribed glucose tabs which are fast acting and do not last all day to take if your blood glucose level gets too low usually less than 70 (normal blood glucose levels 70-100). Please try to implement lifestyle changes including diet and exercise as discussed. Start with small obtainable goals and work your way up. Remember the hand rule for dieting (fist= lean meat, out spread hand=vegetables, half of Palm= good carbohydrates). The [place] [employer] recommends 150 minutes of moderate intensity exercise per week if you are sedentary start with small obtainable goals and work your way up. Discharge Med Rec/Prescriptions Prescriptions: New metformin [Glucophage] 500 mg Tablet 1,000 mg PO 0800,1700 Qty: 60 RF: 0 Lantus Solostar U-100 Insulin 100 unit/mL (3 mL) Insulin Pen 20 unit subcut BEDTIME Qty: 15 RF: 3 (DME) blood-glucose meter [Blood Glucose Monitoring] Kit See Rx Instructions .ROUTE .MEDSUPPLY Qty: 1 RF: 0 glucose 4 gram tablet,chewable 4 gram PO Q15M PRN (Reason: hypoglycemia) Qty: 30 RF: 0 Provider Discharge Instructions Diet: Diet as Tolerated, Carb-consistent/Diabetic, Low-fat, Low-sodium and Low-cholesterol Activity: Activity as tolerated Visit Report/Discharge Packet Instructions: Low-Carbohydrate Diet (Alternative Therapy), DI for Diabetes Type 2, DI for Hypoglycemia, DI for Diabetic Ketoacidosis, How to Use an Insulin Pen, Metformin, Insulin Glargine (By injection) Discharge Data Attending Provider: Cathleen Lynn Admit Date/Time: 06/14/19 13:15 Discharges patient from system. Discharge Date/Time: 06/15/19 14:55 Quality VTE Deep Vein Thrombosis/Pulmonary Embolism Present on Admission: No
--- NOTE | 2019-06-15 10:59 | PC.NURSE ---
Addendum entered by Aleyda Tirado R.N. 06/15/19 14:47: Discharge: IV dc'd intact. Did teaching with patient on how to inject insulin from pen, and he self-administered his lunchtime dose of Novolog. Dr Lynn had a long talk with patient and family about new diabetes dx, diet, new meds, etc. This conventional mortgage underwriter provided, and reviewed, education info on DM II, hypoglycemia and diet. Scripts for Metformin, Lantus, glucose tabs, CBG monitoring kit (machine, strips, lancets, needles) all called in to [facility] per patient request (his Rx in [facility] won't be open until Sunday). Instructed to check blood sugars as directed by Dr Lynn (fasting, then after meals and at bedtime). Instructed patient to check his sugar at any point if he's not feeling well just to make sure it's not hypoglycemia. Instructed to follow up with PCP on Sunday (clinic is closed tomorrow for [place]'s day). Patient verbalized understanding of discharge teaching and stated no further questions. All personal belongings collected and sent with patient. Wheeled out to private vehicle by this conventional mortgage underwriter. Original Note: Shift summary: Alert and oriented X3. Denies N/V and is tolerating PO's without issue. CBG before breakfast was 252. Denies pain or discomfort. Lungs CTA. HRR. Room air, VSS. IVF per orders, site in L hand WNL. Able to make needs known and calls appropriately. Light and belongings within reach.
--- NOTE | 2019-06-15 11:49 | CM.DANOTE ---
Addendum entered by Alisa Hernandez R.N. 06/15/19 13:23: Hospitalist, Dr. Lynn, has had conversation with patient and parents. She did some teaching, for patient will be going home on a low dose of insulin, and diabetic medication. He will need to follow up with his provider at [facility]. Patient does not have a certain provider, so he will need to establish with one. Left anotehr message with Denise, medical social worker at [facility], that he will need to be established with a certain provider for continuity of care. Original Note: DCP: Case received, EMR reviewed and met with patient. Introduced self and role. Was able to meet with patient in his room and obtain baseline health and activity information. DCP assessment completed with information currently available. Patient is a 24 year old male who admitted yesterday afternoon to the care of the hospitalist team. PCP: Dr. Swartz at the [facility]. Payer: confirmed: Medicaid/[facility]. Patient came to the hospital via family vehicle, sent by his primary care provider for a blood sugar of approximately 700. Patient had been exhibiting symptoms of nausea and vomiting. Patient is newly diagnosed with Diabetes. Both parents are diabetic as well. Patient is morbidly obese as well. Met with patient in his room. He was sitting upright in his bed. Pleasant, alert and oriented. Confirmed that he resides with both of his parents, and does not drive. He is independent with mobility. He mentioned that he has not been on any medication. 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 Patient just found out that he is a diabetic. He is aware that he will be undergoing some changes as far as medications, and diet as well. This showcase maker went ahead and left a message with Denise, the [place] [employer] F[employer] WORKER at the clinic, for any resources that patient may need, such as dietary and medication management. P: Patient should be able to return home when he is medically stable. He will need to follow up with his primary care provider at the clinic. Alisa Hernandez RN/Examination Scorer
--- NOTE | 2019-06-17 09:04 | CM.DPC ---
DCP Cont: Per Dr. Lynn's request I called the [facility] at [phone]. Spoke to window shade cutter in regards to patient's recent admission and informed her that Dr. Lynn would like someone to follow up with the patient to be sure he is seen regarding his new diabetes dx and insulin Rx. [facility] [employer] asked that I fax all records from recent admission to their clinic at fax # [phone] and stated they would contact the patient. All records faxed and confirmation scanned in. Thalia Amaral, Care Green Lumber Grader
== END 2019-06-15 14:55 | disposition home or self-care (01) ==
LOC: ED 13:11 → AC 13:16 → ICU 13:51 → AC 06-15 01:07
PROVIDERS: Nurse Practitioner Adult Health; Admitting Provider Internal Medicine; Emergency Provider Emergency Medicine; Visit Provider Internal Medicine
DX: E11.9 Type 2 diabetes mellitus without complications (principal); R11.10 Vomiting, unspecified; E66.01 Morbid (severe) obesity due to excess calories; Z68.43 Body mass index [BMI] 50.0-59.9, adult; D64.9 Anemia, unspecified; Z79.4 Long term (current) use of insulin
CPT/HCPCS: 36415; 71045; 80048; 80053; 80061; 81003; 81015; 82009; 82570; 82805; 82962; 83036; 83605; 83735; 84100; 84145; 84156; 84443; 85025; 87040; 87797; 94762; 96361; 96372; 96374; 99282; 99285; G0378; J1644

== ENCOUNTER 2019-09-01 12:21 | Inpatient (IN) | payer MEDICAID, OTHER, SELFPAY ==
[2019-06-14 14:00] VITALS: BMI 58.0
[2019-09-01] VITALS (19 sets, daily range): BP systolic 110–140; BP diastolic 60–81; PULSE 117–130; RESP 19–45; TEMP 36.2–36.6; O2SAT 96–100; BMI 53.8; BMI 46.6
--- NOTE | 2019-09-01 12:32 | DI.RAD.S_ITS ---
PROCEDURE: XR CHEST 1V INDICATIONS: dka TECHNIQUE: One view of the chest was acquired. COMPARISON: [facility], CR, XR CHEST 1V, 06/14/2019, 11:09. FINDINGS: Surgical changes and devices: None. Lungs and pleura: Lungs are clear. No pleural effusions or pneumothorax. Mediastinum: Mediastinal contours appear normal. Heart size is normal. Bones and chest wall: No suspicious bony lesions. Overlying soft tissues appear unremarkable. IMPRESSION: No acute pulmonary process. Dictated by: Rosita Lamb M.D. on 09/01/2019 at 13:53 Approved by: Rosita Lamb M.D. on 09/01/2019 at 13:59
[2019-09-01] MEDS: ONDANSETRON 4 MG/2 ML INJ IV (12:40)
[2019-09-01] MEDS: SODIUM CHLORIDE 0.9% 1,000 ML 1000 ML IV (12:40)
[2019-09-01] MEDS: MORPHINE 4 MG/ML INJ IV (12:41)
[2019-09-01 12:53] LABS: PCO2 VBG 16.1 mmHg (45-50); PO2 VBG 50 mmHg (35-45); Total CO2 VBG 5 mmol/L (24-29); pH VBG 7.06 (7.33-7.43)
[2019-09-01 12:54] LABS: HCO3 VBG 5 mmol/L (23-28); Oxygen Saturation VBG 70 % (70-75)
[2019-09-01 13:02] LABS: Add Manual Diff / Slide Review NO; Basophils Absolute Auto 100 /uL (0-100); Basophils Percent Auto 0.4 % (0-2); Eosinophils Absolute Auto 0 /uL (0-450); Hematocrit 51.5 % (41-53); Hemoglobin 16.8 g/dL (13.5-17.5); Lymphocytes Absolute Auto 1000 /uL (1100-4500); Lymphocytes Percent Auto 5.5 % (25-40); Mean Corpuscular HGB Conc 32.7 % (30-36); Mean Corpuscular Hemoglobin 28.4 PG (26-34); Mean Corpuscular Volume 86.8 fL (80-100); Monocytes Absolute Auto 1900 /uL (0-900); Monocytes Percent Auto 11.1 % (3-14); Neutrophils Absolute Auto 14300 /uL (1500-7000); Platelet Count 383 X10^3/uL (150-400); Red Blood Cell Count 5.94 X10^6/uL (4.5-5.9); Red Cell Distribution Width 20.6 % (11.6-14.8); White Blood Cell Count 17.2 X10^3/uL (4.5-11.0)
[2019-09-01 13:24] LABS: Lactate (Lactic Acid) 1.5 mmol/L (0.7-2.1)
[2019-09-01 13:25] LABS: Anisocytosis 1+
--- NOTE | 2019-09-01 13:34 | ED.GENADULT ---
HPI - General Adult General Chief complaint: Diabetic Problem Stated complaint: ULQ Pain Time Seen by Provider: 09/01/19 12:25 Source: EMS Mode of arrival: EMS Limitations: no limitations History of Present Illness HPI narrative: The patient is a 24-year-old male who came into the emergency department complaining of severe abdominal pain in the left upper quadrant. He was confused somnolent tachypneic and a very poor historian. He was in severe distress. He appeared to be in diabetic ketoacidosis in acute distress. I question the reliability of his review of systems and history. He was complaining of upper abdominal pain but pointing to his left upper quadrant. He states that the discomfort started 3 days ago and has become progressively worse. He describes the pain as a continuous dull achy crampy discomfort that periodically becomes sharp. The discomfort is 10/10 in intensity. He is very uncomfortable. He has had no history of kidney stones. He is short of breath the patient denies any cough chest pain nausea vomiting diarrhea change in bowel habits. The patient denies any history of diabetic ketoacidosis as far as he could remember. He denies smoking cigarettes drinking alcohol or using any drugs. He denies a history of pancreatitis but admits to being a diabetic. He has had no heart murmur. He denies any fever chills or sweats. He denies any cough chest pain or wheezing but has been short of breath. He has had intense nausea and vomiting which started today without diarrhea. He has had no urinary symptoms. Related Data Home Medications Medication Instructions Recorded Confirmed lisinopril 10 mg PO DAILY 09/01/19 09/01/19 metformin 1,500 mg PO BID 09/01/19 09/01/19 Previous Rx's Medication Instructions Recorded blood-glucose meter [Blood Glucose #1 each 06/15/19 Monitoring] glucose 4 gram PO Q15M PRN #30 tab 06/15/19 insulin glargine [Lantus Solostar 20 unit SUBCUT BEDTIME #15 ml 06/15/19 U-100 Insulin] Allergies Allergy/AdvReac Type Severity Reaction Status Date / Time No Known Drug Allergies Allergy Unknown Unverified 11/14/17 13:00 Review of Systems Review of Systems Narrative: All review of systems were negative except for those mentioned in the history of present illness. Patient History Medical History Patient denies medical problems (Acute) Family History Father Diabetes mellitus Mother Diabetes mellitus Brother No known problems Sister No known problems Social History household members: family Smoking Status: Never smoker alcohol intake: never Smoking Status: Never smoker alcohol intake frequency: 0-2 drinks per day Substance Use Type: does not use Exam Narrative Exam Narrative: PHYSICAL EXAM: CONSTITUTIONAL: The patient is tachypneic appears to be in respiratory extremis somnolent slow to respond speaks softly and appears to be very uncomfortable holding his left upper abdomen. The. The patient is morbidly obese. HEAD: AT/NC EENT: PERRL, FROM of eyes, no discharge. No epistaxis or nasal drainage Oral mucosa is dry with the patient is mouth breathing. There is no exudate noted. NECK: Supple, no obvious JVD, Trachea is midline without stridor, no palpable LN or masses. THORAX: No deformity, retractions, chest wall tenderness, subcutaneous air or crepitice. LUNGS: The patient has coarse breath sounds both anterior posterior and right and left lungs. The patient has expiratory rhonchi in both lung koo and lungs sound congested. HEART: Rhythm is regular with tachycardia and day of grade 2/6 systolic murmur along the left sternal border. ABDOMEN: Soft with extreme tenderness, grimacing and grabbing my hand on palpation of the left upper quadrant and right upper quadrant. There was no palpable organomegaly or masses noted. EXTREMITIES: No edema, cyanosis, deformity or tenderness. SKIN: No rash, bruising, petechiae or purpura. NEURO: The patient moves all 4 extremities. Has symmetrical strength cranial nerves 2-12 are within normal limits. He has no focal facial asymmetry. Initial Vital Signs Initial Vital Signs: Vital Signs Pulse Rate 130 H 09/01/19 12:31 Respiratory Rate 45 H 09/01/19 12:31 Blood Pressure 121/81 09/01/19 12:31 Pulse Oximetry 100 09/01/19 12:31 Course Course Course Narrative: 1335 the patient weighs over 300 lb. The patient is morbidly obese. His height is 6 ft. His ideal body weight using the air Force equation should be approximately 180-85 lb which is 84 kilos. At 0.1 unit/kilogram per hour the patient will be started on an insulin infusion at 8 units/hour. He has also been started on an IV of normal saline with 40 mEq of potassium chloride at 150 cc/hour. The patient's pH was 7.0, he was administered 50 cc ( 1 amp of sodium bicarb). The goal is to get his pH to 7.1. He is in diabetic ketoacidosis. Waiting for the CT of his abdomen and chest x-ray to evaluate for infection. He was administered 4 mg of morphine sulfate for pain and discomfort and 4 mg of Zofran IV. 1520 EKG: The patient's EKG has a ventricular rate of 120. The patient has a wide T-wave and it looks like P waves may be buried in the T-wave making this is sinus tachycardia. The patient has a significant right axis deviation. QTC is [address] depressions are present in V3 V4 V5 V6 III and AVF. These are nonspecific changes. There is no T-wave inversion appreciated. The patient is being administered 2 L of IV fluid. His lactic acid is 1.5. His potassium is 2.4 and his bicarb is low. The patient has not been given an amp of sodium bicarb to drive the potassium into the cells. The patient is being administered 20 mEq of of potassium chloride IV over 2 hours on a monitor ( 10 mEQ/ hour) which may need to be repeated. The patient's insulin has been slowed to 4 units over an hour to treat the ketosis and acidosis since we can not administer sodium biarb until his potassium is 3.5. The patient's lipase is significantly elevated at greater than 10,000 suggesting acute pancreatitis. A CT of the patient's abdomen has been obtained. Chest x-ray did not show any acute cardiopulmonary pathology. Two blood cultures were obtained on the patient and he has been administered 4.5 g of Zosyn IV. [address] scan reveals inflammatory changes of the pancreas without evidence of a peripancreatic abscess or pseudocyst consistent with acute pancreatitis. The hospitalist will be called to admit this patient. Repeat potassium after 1 hour of 10 mEq IV with insulin running at 4 units/hour was 2.6. On admission the patient was ordered 40 mEq orally however the patient remains very somnolent and sleepy. IV fluids continue on the patient. 1633 discussed the patient with Dr. yLnn who accepted the patient being admitted to the intensive care unit. She wanted the insulin drip discontinued until the potassium is elevated. The patient was placed on a low-dose insulin to try and rest the ketosis while watching closely the potassium and replacing the potassium. The nurse was informed. Dr. Lynn did not want to admit the patient to the intensive care unit until he his potassium was 3.5. She wanted the low-dose insulin infusion discontinued until his potassium was 3.5. The patient will be admitted to the intensive care unit. Orders Ordered: ED Orders 09/01/19 12:31 EKG-12 Lead Stat 09/01/19 12:32 XR chest 1V Stat 09/01/19 12:34 Venous Blood Gas Stat 09/01/19 12:45 Complete Blood Count AUTO DIFF Stat Comprehensive Metabolic Panel Stat Ketones (Beta-Hydroxybutyrate) Stat Lactate (Lactic Acid) Stat Lipase Stat Procalcitonin Stat 09/01/19 13:24 Blood Culture Stat 09/01/19 14:53 CT abdomen pelvis w con Stat 09/01/19 15:39 Glucose Stat Potassium Stat 09/01/19 17:02 XR chest for PICC 1V Stat 09/01/19 17:45 Glucose Stat Potassium Stat Potassium Chloride/Sodium Chloride (Ns With Kcl 40 Meq) 1,000 mls @ 150 mls/hr IV CONT PAM Last Infusion: 09/01/19 14:20 Dose: 0 mls/hr Documented by: Admin: 09/01/19 13:49 Dose: 150 mls/hr Documented by: MAXX INSULIN DRIP PREMIX (Myxredlin Drip Premix) 100 unit in 100 mls @ 6 mls/hr IV TITRATE PAM; Protocol Last Titration: 09/01/19 16:34 Dose: 0 mls/hr Documented by: MAXX Cosigned by: UZMA Admin: 09/01/19 13:42 Dose: 8 mls/hr Documented by: MAXX Cosigned by: UZMA Potassium Chloride 80 meq/ (Sodium Chloride) 1,040 mls @ 130 mls/hr IV NOW ONE Stop: 09/02/19 00:27 Discontinued Medications Sodium Chloride (Normal Saline 0.9%) 1,000 mls @ 1,000 mls/hr IV BOLUS ONE Stop: 09/01/19 13:30 Last Infusion: 09/01/19 13:53 Dose: 0 mls/hr Documented by: Admin: 09/01/19 12:40 Dose: 1,000 mls/hr Documented by: ISAEL Sodium Chloride (Normal Saline 0.9%) 1,000 mls @ 1,000 mls/hr IV BOLUS ONE Stop: 09/01/19 13:32 Potassium Chloride 20 meq/ (Sodium Chloride) 260 mls @ 130 mls/hr IV NOW ONE Stop: 09/01/19 15:47 Last Infusion: 09/01/19 17:04 Dose: 0 mls/hr Documented by: MAXX Cosigned by: PHAM Admin: 09/01/19 14:21 Dose: 130 mls/hr Documented by: MAXX Cosigned by: MINOONER Piperacillin/Tazobactam/Dextrose (Zosyn) 4.5 gm in 100 mls @ 200 mls/hr IV NOW ONE Stop: 09/01/19 15:45 Vancomycin HCl/Dextrose (Vancomycin) 1,500 mg in 300 mls @ 200 mls/hr IV NOW ONE Stop: 09/01/19 17:30 Morphine Sulfate (Morphine) 4 mg IV NOW ONE Stop: 09/01/19 12:39 Last Admin: 09/01/19 12:41 Dose: 4 mg Documented by: ISAEL Ondansetron HCl (Zofran) 4 mg IV NOW ONE Stop: 09/01/19 12:32 Last Admin: 09/01/19 12:40 Dose: 4 mg Documented by: ISAEL Potassium Chloride (Klor-Con M20) 40 meq PO NOW ONE Stop: 09/01/19 12:56 Sodium Bicarbonate (Sodium Bicarbonate 8.4% Syringe) 50 meq IV NOW ONE Stop: 09/01/19 13:34 Vital Signs Vital signs: Vital Signs - 8 hr 09/01/19 12:31 09/01/19 12:40 09/01/19 12:52 Temperature 97.1 F L 97.1 F L Pulse Rate 130 H 129 H 129 H Respiratory Rate 45 H 38 H 38 H Blood Pressure 121/81 121/81 Blood Pressure [Left Arm] Blood Pressure [Right Arm] Pulse Oximetry 100 99 99 09/01/19 13:01 09/01/19 14:04 09/01/19 14:37 Temperature 97.2 F L Pulse Rate 118 H 120 H 117 H Respiratory Rate 34 H 36 H 19 Blood Pressure Blood Pressure [Left Arm] 122/64 129/66 136/65 Blood Pressure [Right Arm] Pulse Oximetry 100 98 99 09/01/19 15:00 09/01/19 15:42 09/01/19 16:20 Temperature Pulse Rate 121 H 120 H 118 H Respiratory Rate 36 H 34 H 31 H Blood Pressure Blood Pressure [Left Arm] 132/65 140/79 130/65 Blood Pressure [Right Arm] Pulse Oximetry 98 100 100 09/01/19 17:05 09/01/19 17:33 Temperature Pulse Rate 124 H 123 H Respiratory Rate 33 H 26 H Blood Pressure Blood Pressure [Left Arm] 130/64 Blood Pressure [Right Arm] 132/69 Pulse Oximetry 100 99 Medical Decision Making Lab Data Lab results reviewed: Yes I reviewed the patient's lab results. Result diagrams: 09/01/19 12:45 09/01/19 17:45 Labs: Lab Results 09/01/19 09/01/19 09/01/19 Range/Units 12:34 12:45 12:45 WBC 17.2 H (4.5-11.0) X10^3/uL RBC 5.94 H (4.5-5.9) X10^6/uL Hgb 16.8 (13.5-17.5) g/dL Hct 51.5 (41-53) % MCV 86.8 (80-100) fL MCH 28.4 (26-34) PG MCHC 32.7 (30-36) % RDW 20.6 H (11.6-14.8) % Plt Count 383 (150-400) X10^3/uL Neut % (Auto) 83.0 H (50-75) % Lymph % (Auto) 5.5 L (25-40) % Harnett % (Auto) 11.1 (3-14) % Eos % (Auto) 0.0 L (2-4) % Baso % (Auto) 0.4 (0-2) % Neut # (Auto) 31862 H (3083-6840) /uL Lymph # (Auto) 1000 L (4275-9980) /uL Harnett # (Auto) 1900 H (0-900) /uL Eos # (Auto) 0 (0-450) /uL Baso # (Auto) 100 (0-100) /uL RBC Morphology See below Anisocytosis 1+ H VBG pH 7.06 L* (7.33-7.43) VBG pCO2 16.1 L (45-50) mmHg VBG pO2 50 H (35-45) mmHg VBG HCO3 5 L (23-28) mmol/L VBG Total CO2 5 L (24-29) mmol/L VBG O2 Saturation 70 (70-75) % VBG Base Excess -26.0 L (0-4) mmol/L Sodium (137-145) mmol/L Potassium (3.4-5.1) mmol/L Chloride (98-107) mmol/L Carbon Dioxide (22-32) mmol/L BUN (9-20) mg/dL Creatinine (0.66-1.25) mg/dL Estimated GFR (>60) mL/min BUN/Creatinine Ratio (6-22) Glucose (70-100) mg/dL Lactate (0.7-2.1) mmol/L Calcium (8.4-10.2) mg/dL Total Bilirubin (0.2-1.3) mg/dL AST (17-59) IU/L ALT (<50) IU/L Alkaline Phosphatase (38-126) U/L Total Protein (6.3-8.2) g/dL Albumin (3.5-5.0) g/dL Globulin (1.7-4.1) g/dL Albumin/Globulin Ratio (1.0-2.8) Lipase (23-300) U/L Procalcitonin 0.12 (<0.5) ng/mL Ketones (<0.27) mmol/L 09/01/19 09/01/19 09/01/19 Range/Units 12:45 12:45 12:45 WBC (4.5-11.0) X10^3/uL RBC (4.5-5.9) X10^6/uL Hgb (13.5-17.5) g/dL Hct (41-53) % MCV (80-100) fL MCH (26-34) PG MCHC (30-36) % RDW (11.6-14.8) % Plt Count (150-400) X10^3/uL Neut % (Auto) (50-75) % Lymph % (Auto) (25-40) % Harnett % (Auto) (3-14) % Eos % (Auto) (2-4) % Baso % (Auto) (0-2) % Neut # (Auto) (7895-0107) /uL Lymph # (Auto) (5580-6661) /uL Harnett # (Auto) (0-900) /uL Eos # (Auto) (0-450) /uL Baso # (Auto) (0-100) /uL RBC Morphology Anisocytosis VBG pH (7.33-7.43) VBG pCO2 (45-50) mmHg VBG pO2 (35-45) mmHg VBG HCO3 (23-28) mmol/L VBG Total CO2 (24-29) mmol/L VBG O2 Saturation (70-75) % VBG Base Excess (0-4) mmol/L Sodium 138 (137-145) mmol/L Potassium 2.4 L* (3.4-5.1) mmol/L Chloride 110 H (98-107) mmol/L Carbon Dioxide < 5 L* (22-32) mmol/L BUN 13 (9-20) mg/dL Creatinine 1.40 H (0.66-1.25) mg/dL Estimated GFR > 60.0 (>60) mL/min BUN/Creatinine Ratio 9.3 (6-22) Glucose 449 H (70-100) mg/dL Lactate 1.5 (0.7-2.1) mmol/L Calcium 10.5 H (8.4-10.2) mg/dL Total Bilirubin 0.8 (0.2-1.3) mg/dL AST 16 L (17-59) IU/L ALT 15 (<50) IU/L Alkaline Phosphatase 237 H (38-126) U/L Total Protein 8.9 H (6.3-8.2) g/dL Albumin 4.0 (3.5-5.0) g/dL Globulin 4.9 H (1.7-4.1) g/dL Albumin/Globulin Ratio 0.8 L (1.0-2.8) Lipase 86744 H (23-300) U/L Procalcitonin (<0.5) ng/mL Ketones 6.64 H (<0.27) mmol/L 09/01/19 09/01/19 09/01/19 Range/Units 15:39 15:39 17:45 WBC (4.5-11.0) X10^3/uL RBC (4.5-5.9) X10^6/uL Hgb (13.5-17.5) g/dL Hct (41-53) % MCV (80-100) fL MCH (26-34) PG MCHC (30-36) % RDW (11.6-14.8) % Plt Count (150-400) X10^3/uL Neut % (Auto) (50-75) % Lymph % (Auto) (25-40) % Harnett % (Auto) (3-14) % Eos % (Auto) (2-4) % Baso % (Auto) (0-2) % Neut # (Auto) (0222-0480) /uL Lymph # (Auto) (6405-2295) /uL Harnett # (Auto) (0-900) /uL Eos # (Auto) (0-450) /uL Baso # (Auto) (0-100) /uL RBC Morphology Anisocytosis VBG pH (7.33-7.43) VBG pCO2 (45-50) mmHg VBG pO2 (35-45) mmHg VBG HCO3 (23-28) mmol/L VBG Total CO2 (24-29) mmol/L VBG O2 Saturation (70-75) % VBG Base Excess (0-4) mmol/L Sodium (137-145) mmol/L Potassium 2.6 L* 2.8 L (3.4-5.1) mmol/L Chloride (98-107) mmol/L Carbon Dioxide (22-32) mmol/L BUN (9-20) mg/dL Creatinine (0.66-1.25) mg/dL Estimated GFR (>60) mL/min BUN/Creatinine Ratio (6-22) Glucose 420 H 418 H (70-100) mg/dL Lactate (0.7-2.1) mmol/L Calcium (8.4-10.2) mg/dL Total Bilirubin (0.2-1.3) mg/dL AST (17-59) IU/L ALT (<50) IU/L Alkaline Phosphatase (38-126) U/L Total Protein (6.3-8.2) g/dL Albumin (3.5-5.0) g/dL Globulin (1.7-4.1) g/dL Albumin/Globulin Ratio (1.0-2.8) Lipase (23-300) U/L Procalcitonin (<0.5) ng/mL Ketones (<0.27) mmol/L Point of Care Testing Glucose POC 314 Point of care testing: Point of Care Testing Glucose POC 314 Discharge Plan Departure Patient Disposition: Admitted As Inpatient Clinical Impression: Acute hypokalemia, Tachypnea, Tachycardia DKA (diabetic ketoacidoses) Qualifiers: Diabetes mellitus type: type 2 Diabetes mellitus complication detail: without coma Qualified Code(s): E11.10 - Type 2 diabetes mellitus with ketoacidosis without coma Diabetes mellitus Qualifiers: Diabetes mellitus type: type 2 Diabetes mellitus terminal computer operator insulin use: unspecified terminal computer operator insulin use status Diabetes mellitus complication status: with ketoacidosis Diabetes mellitus complication detail: without coma Qualified Code(s): E11.10 - Type 2 diabetes mellitus with ketoacidosis without coma Acute pancreatitis Qualifiers: Pancreatitis type: unspecified pancreatitis type Acute pancreatitis complication: unspecified Qualified Code(s): K85.90 - Acute pancreatitis without necrosis or infection, unspecified
[2019-09-01 13:42] LABS: Alanine Aminotransferase 15 IU/L (<50); Albumin Globulin Ratio 0.8 (1.0-2.8); Alkaline Phosphatase 237 U/L (38-126); Aspartate Aminotransferase 16 IU/L (17-59); BUN Creatinine Ratio 9.3 (6-22); Bilirubin Total 0.8 mg/dL (0.2-1.3); Blood Urea Nitrogen 13 mg/dL (9-20); Calcium 10.5 mg/dL (8.4-10.2); Chloride 110 mmol/L (98-107); Estimated Glomerular Filt Rate > 60.0 mL/min (>60); Globulin 4.9 g/dL (1.7-4.1); Glucose 449 mg/dL (70-100); HEMOLYSIS < 15 (0-50); Sodium 138 mmol/L (137-145); Total Protein 8.9 g/dL (6.3-8.2)
[2019-09-01] MEDS: INSULIN DRIP PREMIX 100 UNIT/100 ML PLAST..BAG 8 UNIT IV (13:42)
[2019-09-01] MEDS: KCL 40 MEQ IN NS 1,000 ML 150 MEQ IV (13:49)
[2019-09-01 13:50] LABS: Procalcitonin 0.12 ng/mL (<0.5)
--- NOTE | 2019-09-01 13:51 | PC.NURSE ---
Insulin and Potassium cross checked with ZARINA Ruggiero. Verbal order given by Dr to change insulin to 4 units per hour. Both cross verified.
[2019-09-01 13:52] LABS: Ketones (Beta-Hydroxybutyrate) 6.64 mmol/L (<0.27)
[2019-09-01 13:53] LABS: Potassium 2.4 mmol/L (3.4-5.1)
[2019-09-01 13:54] LABS: Carbon Dioxide < 5 mmol/L (22-32)
[2019-09-01 13:58] LABS: Lipase 19398 U/L (23-300)
--- NOTE | 2019-09-01 14:03 | PC.NURSE ---
patient prelim labs 2.4k, CO2 <5 and Lipase >20,000. Venessa perez rn aware. notified dr. zarco.
[2019-09-01] MEDS: POTASSIUM CHLORIDE 20 MEQ in SODIUM CHLORIDE 0.9% 250 ML 130 ML IV (14:21)
--- NOTE | 2019-09-01 14:53 | DI.CT.S_ITS ---
PROCEDURE: CT ABDOMEN PELVIS W CON INDICATIONS: dka, iv contrast only. TECHNIQUE: After the administration of intravenous contrast, 5 mm thick sections acquired from the diaphragm to the symphysis. 5 mm coronal and sagittal reformats were acquired. For radiation dose reduction, the following was used: automated exposure control, adjustment of mA and/or kV according to patient size. COMPARISON: [facility], CT, ABDOMEN/PELVIS WITH CONTRAST, 09/17/2016, 2:39. FINDINGS: Image quality: Excellent. ABDOMEN: Lung bases: Lung bases are clear. Heart size is normal. Solid organs: Liver is enlarged with steatosis. Gallbladder is unremarkable. Biliary system is non dilated. Pancreas is enlarged with prominent surrounding inflammatory change and trace fluid. No peripancreatic abscess is identified. Pancreas is enhancing without evidence of necrotizing pancreatitis. Spleen is normal in size and enhancement. No adrenal nodules. Kidneys demonstrate normal size and enhancement, without hydronephrosis. Peritoneum and bowel: Bowel loops demonstrate normal wall thickness and caliber. No free fluid or air. Nodes and vessels: No retroperitoneal or mesenteric adenopathy by size criteria. Aorta and inferior vena cava are normal in size. Miscellaneous: No ventral hernias. PELVIS: Genitourinary: Bladder wall thickness is normal. Miscellaneous: No inguinal hernias or adenopathy. Bones: No suspicious bony lesions. No vertebral body compression fractures. IMPRESSION: 1. Markedly inflamed pancreas without peripancreatic abscess or pseudocyst most consistent with pancreatitis. Dictated by: Rosita Lamb M.D. on 09/01/2019 at 15:27 Approved by: Rosita Lamb M.D. on 09/01/2019 at 15:28
[2019-09-01 15:53] LABS: HEMOLYSIS 42 (0-50)
[2019-09-01 15:55] LABS: Potassium 2.6 mmol/L (3.4-5.1)
[2019-09-01 15:57] LABS: Glucose 420 mg/dL (70-100)
--- NOTE | 2019-09-01 17:02 | DI.RAD.S_ITS ---
PROCEDURE: XR CHEST FOR PICC 1V INDICATIONS: iv access COMPARISON: [facility], , XR CHEST 1V, 09/01/2019, 13:43. FINDINGS: PICC was placed by the intravenous therapy team from the left side. Fluoroscopic spot film demonstrates the tip of PICC projecting to the area of the upper SVC IMPRESSION: Tip of PICC projects to the area of upper SVC Dictated by: Mic Wagner M.D. on 09/01/2019 at 17:19 Approved by: Mic Wagner M.D. on 09/01/2019 at 17:19
--- NOTE | 2019-09-01 17:32 | PC.NURSE ---
double lumen power picc placed in upper left arm basilic vein. Followed hospital protocol. line placed with no problems. able to draw back blood with no problems. Line is 55cm long. Placed 49cm with 6cm out at skin site. lt arm is 36cm around.
[2019-09-01 17:58] LABS: Glucose 418 mg/dL (70-100); HEMOLYSIS < 15 (0-50); Potassium 2.8 mmol/L (3.4-5.1)
--- NOTE | 2019-09-01 18:21 | PC.NURSE ---
Latest Potassium shows 2.8 . Verbal order from to continue with the 80meq bag of Potassium until level is at 3.0 then transfer to ICU.
[2019-09-01 19:45] LABS: HCO3 VBG 5 mmol/L (23-28); PCO2 VBG 17.4 mmHg (45-50); PO2 VBG 66 mmHg (35-45); Total CO2 VBG 5 mmol/L (24-29); pH VBG 7.02 (7.33-7.43)
[2019-09-01 19:46] LABS: Oxygen Saturation VBG 82 % (70-75)
[2019-09-01 20:06] LABS: HEMOLYSIS 49 (0-50)
--- NOTE | 2019-09-01 20:15 | PC.NURSE ---
Diamond Anderson RN started potassium 80meq that was paused from previous verbal taken by eloisa SRINIVASAN. Potassium now running at 130/hr.
[2019-09-01] MEDS: POTASSIUM CHLORIDE 80 MEQ in SODIUM CHLORIDE 0.9% 1,000 ML 130 ML IV (20:19)
--- NOTE | 2019-09-01 20:23 | PC.NURSE ---
charting central line to reflect in the chart that is was placed. Line was placed prior to my arrival.
--- NOTE | 2019-09-01 20:25 | PC.NURSE ---
central line placed prior to my shift is a 5fr double lumen in left upper arm. Staff states Ana SRINIVASAN placed central line.
[2019-09-01 20:32] LABS: Magnesium 2.6 mg/dL (1.6-2.3); Phosphorous 4.3 mg/dL (2.5-4.5)
--- NOTE | 2019-09-01 20:55 | P.HP_ITS ---
History of Present Illness History of Present Illness Date Patient Seen: 09/01/19 Time Patient Seen: 20:55 Chief complaint: ULQ Pain Narrative: Mr. Kun Samson is a 24-year-old male with a history of newly diagnosed diabetes in June 2019 on Lantus and and hypertension who presents to the ER with complaints of abdominal pain for 3 days. The patient is lethargic following administration of pain medication and limited information is obtained from the patient's mother at bedside. She provides history the patient being sick 1 week ago with fevers and chills poor appetite and malaise. He states he began feeling better and eating normally once more until developing abdominal pain 3 days ago. The pain became progressively worse with the patient presenting today in acute distress. The patient has a history diabetes diagnosed on admission 06/14/2019 when the patient presented with nonketotic, non acidotic hyperglycemia with associated nausea and vomiting with blood sugars over 700 at the [facility] in over 400 upon arrival to the ER at that time. Since discharge from that hospitalization the patient has been check his blood sugars daily and his mother reports they never been less than 220. The patient mother notes the patient recently had prescription moved to pharmacy [facility] receiving his metformin and lisinopril but not Lantus. His mother believes that his Lantus had been discontinued and he has not used his Lantus since Sunday. The patient is unable participate subjective review of symptoms however he lives with his mother in his related no complaints of headache or dizziness, nasal congestion or sore throat. He denies chest pain has had no shortness of breath or cough. His abdominal pain is noted above with associated nausea. He is related no changes in bowel habits but has been urinating frequently. Upon arrival to the ER the patient is afebrile with a temperature 97.1?, tachycardic at 129 with a blood pressure 121/81, respirations of 45 saturating 100% on room air. Imaging is obtained with chest x-ray 20 no acute cardiopulmonary processes. Abdominal pelvis CT identifies that her see to pto sis, gallbladder and ducts within normal limits, enlarged pancreas with surrounding inflammation without abscess, pseudocyst or necrosis.. On laboratory analysis the patient has elevated white count at 17.2, hemoglobin at 16.8, hematocrit 51.5 and platelets of 383. His sodium is 138 with potassium of 2.8, chloride of 110, CO of less than 5, BUN of 13 and creatinine elevated 1.4. His glucose is 418. His EGFR is greater than 60. On VBG he is found to have a pH of 7.06, CO2 of 16.1, O2 50 with bicarb of 5 with a base excess of -26. His lipase is found to be 19,398, ketones are 6.64. His anion gap is calculated at 23. In the ER the patient received 1 L bolus of normal saline, normal saline wi th 40 mEq of potassium at 150 cc/hour. Bicarb 1 amp was ordered as was Zosyn and 40 mEq of potassium IV. The patient is admitted to the medicine service for acute pancreatitis, diabetic ketoacidosis and leukocytosis. Patient History Medical History Diabetes mellitus (Inactive) Surgical History No pertinent past surgical history (Acute) Family & Social History Family History Father Diabetes mellitus Mother Diabetes mellitus Brother No known problems Sister No known problems Social History: household members family Safety & Behavioral: Feels Safe in Current Yes Environment Been Physically Hurt or No Threatened By a Person Tobacco & Substance use: Smoking Status Never smoker alcohol intake never alcohol intake frequency 0-2 drinks per day Substance Use Type does not use Comment: The patient is single and lives with his family in a single family house. His mother father both have diabetes and he has 1 brother and 2 sisters described as in good health. He has no known family history of cancer, heart disease or hypertension. The patient receives is primary health care from the [facility]. 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 Smoking: Patient denies use of tobacco products. Alcohol: Patient denies consumption of alcohol. Substance use: The patient denies use of recreational pharmaceuticals, herbal or cannabis products. Advanced directives: The patient has previously been designated as FULL CODE. He designates his mother Hiral Samson to be his surrogate decision maker. Meds Home Medications and Allergies Home Medications Medication Instructions Recorded Confirmed Type blood-glucose meter [Blood Glucose #1 each 06/15/19 09/01/19 Rx Monitoring] glucose 4 gram PO Q15M PRN #30 tab 06/15/19 09/01/19 Rx insulin glargine [Lantus Solostar 20 unit SUBCUT BEDTIME #15 ml 06/15/19 09/01/19 Rx U-100 Insulin] lisinopril 10 mg PO DAILY 09/01/19 09/01/19 History metformin 1,500 mg PO BID 09/01/19 09/01/19 History Allergies Allergy/AdvReac Type Severity Reaction Status Date / Time No Known Drug Allergies Allergy Unknown Unverified 11/14/17 13:00 Exam Vital Signs (past 8 hours): - 09/01/19 13:01 09/01/19 14:04 09/01/19 14:37 Temperature 97.2 F L Pulse Rate 118 H 120 H 117 H Respiratory Rate 34 H 36 H 19 Blood Pressure [Left Arm] 122/64 129/66 136/65 Blood Pressure [Right Arm] Pulse Oximetry 100 98 99 09/01/19 15:00 09/01/19 15:42 09/01/19 16:20 Temperature Pulse Rate 121 H 120 H 118 H Respiratory Rate 36 H 34 H 31 H Blood Pressure [Left Arm] 132/65 140/79 130/65 Blood Pressure [Right Arm] Pulse Oximetry 98 100 100 09/01/19 17:05 09/01/19 17:33 09/01/19 18:12 Temperature Pulse Rate 124 H 123 H 122 H Respiratory Rate 33 H 26 H 36 H Blood Pressure [Left Arm] 130/64 Blood Pressure [Right Arm] 132/69 134/77 Pulse Oximetry 100 99 99 09/01/19 19:45 09/01/19 20:06 Temperature Pulse Rate 126 H 127 H Respiratory Rate 34 H 42 H Blood Pressure [Left Arm] Blood Pressure [Right Arm] 110/74 113/60 Pulse Oximetry 99 99 Oxygen Delivery Method Room Air Narrative Exam Narrative: GENERAL APPEARANCE: well developed, morbidly obese with a BMI of 46.7, who is acutely ill appearing HEENT: Normocephalic, PERRLA, conjunctiva clear, mucous membranes are moist and pink without lesions or exudate. NECK/THYROID: Short thick neck, supple, no thyromegaly, trachea midline. LYMPH NODES: no cervical or supraclavicular lymphadenopathy. SKIN: [place], warm and dry, multiple skin abscesses, 0.5 cm open wound posterior right thigh, draining wound medial right thigh, draining wound right scrotum, draining wound right lateral abdominal wall, multiple lesions with abscess right lower abdomen under pannus, lesions all with 3-4 cm induration. HEART: Tachycardic rate with regular rhythm, S1-S2, no murmur, no rubs or gallops, brisk capillary refill, 1+ bilateral dorsalis pedis pulses, no edema LUNGS: Breath sounds diminished, clear to auscultation bilaterally, no coarseness crackles or wheezing, no cough present CHEST: Tachypneic, hyperpneic, symmetrical movement, no accessory muscle use. ABDOMEN: Soft, grimace to palpation epigastrium and left upper quadrant, no guarding or peritoneal signs, no organomegaly, exam limited by body habitus, active bowel tones, abdominal wall skin lesions as noted above. EXTREMITIES: Skin lesions as noted above, no deformities or joint effusions. NEUROLOGIC: GCS 10, patient is stuporous, will open eyes to repeated verbal commands, nonverbal, will follow simple commands. PSYCH: Patient sedated having received pain medication, nonverbal minimally responsive Objective Labs Result Diagrams: 09/01/19 12:45 09/01/19 19:24 Labs: Laboratory Results - last 24 hr 09/01/19 09/01/19 09/01/19 12:34 12:45 12:45 WBC 17.2 H RBC 5.94 H Hgb 16.8 Hct 51.5 MCV 86.8 MCH 28.4 MCHC 32.7 RDW 20.6 H Plt Count 383 Neut % (Auto) 83.0 H Lymph % (Auto) 5.5 L Stewart % (Auto) 11.1 Eos % (Auto) 0.0 L Baso % (Auto) 0.4 Neut # (Auto) 40067 H Lymph # (Auto) 1000 L Stewart # (Auto) 1900 H Eos # (Auto) 0 Baso # (Auto) 100 RBC Morphology See below Anisocytosis 1+ H VBG pH 7.06 L* VBG pCO2 16.1 L VBG pO2 50 H VBG HCO3 5 L VBG Total CO2 5 L VBG O2 Saturation 70 VBG Base Excess -26.0 L Sodium Potassium Chloride Carbon Dioxide BUN Creatinine Estimated GFR BUN/Creatinine Ratio Glucose Lactate Calcium Phosphorus Magnesium Total Bilirubin AST ALT Alkaline Phosphatase Total Protein Albumin Globulin Albumin/Globulin Ratio Lipase Procalcitonin 0.12 Ketones 0109/01/19 09/01/19 12:45 12:45 12:45 WBC RBC Hgb Hct MCV MCH MCHC RDW Plt Count Neut % (Auto) Lymph % (Auto) Stewart % (Auto) Eos % (Auto) Baso % (Auto) Neut # (Auto) Lymph # (Auto) Stewart # (Auto) Eos # (Auto) Baso # (Auto) RBC Morphology Anisocytosis VBG pH VBG pCO2 VBG pO2 VBG HCO3 VBG Total CO2 VBG O2 Saturation VBG Base Excess Sodium 138 Potassium 2.4 L* Chloride 110 H Carbon Dioxide < 5 L* BUN 13 Creatinine 1.40 H Estimated GFR > 60.0 BUN/Creatinine Ratio 9.3 Glucose 449 H Lactate 1.5 Calcium 10.5 H Phosphorus Magnesium Total Bilirubin 0.8 AST 16 L ALT 15 Alkaline Phosphatase 237 H Total Protein 8.9 H Albumin 4.0 Globulin 4.9 H Albumin/Globulin Ratio 0.8 L Lipase 31298 H Procalcitonin Ketones 6.64 H 09/01/19 09/01/19 09/01/19 15:39 15:39 17:45 WBC RBC Hgb Hct MCV MCH MCHC RDW Plt Count Neut % (Auto) Lymph % (Auto) Stewart % (Auto) Eos % (Auto) Baso % (Auto) Neut # (Auto) Lymph # (Auto) Stewart # (Auto) Eos # (Auto) Baso # (Auto) RBC Morphology Anisocytosis VBG pH VBG pCO2 VBG pO2 VBG HCO3 VBG Total CO2 VBG O2 Saturation VBG Base Excess Sodium Potassium 2.6 L* 2.8 L Chloride Carbon Dioxide BUN Creatinine Estimated GFR BUN/Creatinine Ratio Glucose 420 H 418 H Lactate Calcium Phosphorus Magnesium Total Bilirubin AST ALT Alkaline Phosphatase Total Protein Albumin Globulin Albumin/Globulin Ratio Lipase Procalcitonin Ketones 09/01/19 09/01/19 09/01/19 19:16 19:24 19:24 WBC RBC Hgb Hct MCV MCH MCHC RDW Plt Count Neut % (Auto) Lymph % (Auto) Stewart % (Auto) Eos % (Auto) Baso % (Auto) Neut # (Auto) Lymph # (Auto) Stewart # (Auto) Eos # (Auto) Baso # (Auto) RBC Morphology Anisocytosis VBG pH 7.02 L* VBG pCO2 17.4 L VBG pO2 66 H VBG HCO3 5 L VBG Total CO2 5 L VBG O2 Saturation 82 H VBG Base Excess -27.0 L Sodium Potassium 3.0 L Chloride Carbon Dioxide BUN Creatinine Estimated GFR BUN/Creatinine Ratio Glucose Lactate Calcium Phosphorus 4.3 Magnesium 2.6 H Total Bilirubin AST ALT Alkaline Phosphatase Total Protein Albumin Globulin Albumin/Globulin Ratio Lipase Procalcitonin Ketones Assessment & Plan Assessment & Plan narrative: The patient is a 24-year-old [place] male with a history of diabetes who presents with 3 days of acute illness that has been worsening. Patient has diabetic ketoacidosis with pancreatitis and multiple skin wound lesions an abscess. 1. Acute diabetic ketoacidosis, with anion gap, present on admission, active. -patient only diagnosed with diabetes on hospital admission on 06/14/2019 with non ketotic, non acidotic hyperglycemia. -patient with multiple etiology for DKA including multiple skin abscesses, pancreatitis and running out of Lantus. -lab testing finds leukocytosis at 17.2, blood sugar of 418, VBG with pH of 7.06, pCO2 of 16.1, PO2 of 50, bicarbonate of 5 with a base excess of -26, ketones 6.64. -the patient is given 1 L normal saline bolus, will repeat 1 L saline bolus and reassess. -patient with associated hypokalemia at 2.8, treated in the ED with KCl rider 40 mEq prior to initiating insulin drip. -blood sugars every hour with insulin drip titration. Will change IV fluid to D5 NS at 150 cc/hour when glucose is less than 250. -will track serial chemistries including BMP, magnesium, phosphate every 4 hours until stable -dietary consult for diabetes -will recheck hemoglobin A1c 2. Acute pancreatitis, present on admission, active -patient with left upper quadrant and epigastric abdominal pain described as dull, aching and occasionally sharp worsening over 3 days. -CT exam finds pancreas enlarged with surrounding inflammation, no abscess, pseudocyst or necrosis noted, gallbladder and ducts are normal in appearance. -patient with leukocytosis 17.2, lipase elevated at 19,398. -patient is NPO -patient has received normal saline bolus IV, normal saline 150 cc/hour. -patient is started on Zosyn 3.375 g IV every 6 hours. 3. Multiple skin abscesses with purulent drainage, present on admission, active -put patient with multiple skin lesions with open wounds, draining wounds and abscesses. -patient with leukocytosis at 17.2, procalcitonin is 0.12. -purulent material expressed and cultured. -patient is started on Zosyn 3.375 g IV every 6 hours -patient started on vancomycin 1500 mg IV every 12 hours with pharmacy to dose. -will consult general surgery for an I and D abscess. -wound care-clean open wounds twice daily with soap and water and cover with dressing. -patient is placed on contact isolation. 4. Essential hypertension, present on admission, stable. -blood pressure on admission was 121/81. -will continue patient's home regimen of lisinopril 20 mg daily when taking PO's. 5. Morbid obesity, present on admission, active -patient with a BMI of 46.7, BMI on previous admission 06/14/2019 was 58.1 -dietitian to consult. VTE prophylaxis: Bilateral SCDs, Lovenox. Diet: NPO IV fluid: 0.45% NS at 200 cc/hour. The patient is admitted to the hospital related to multifactorial etiology diabetic ketoacidosis including pancreatitis and multiple skin wound infections. The patient is admitted as an inpatient with expected length of stay to be greater than 2 midnights.
[2019-09-01] MEDS: SODIUM CHLORIDE 0.9% 1,000 ML 500 ML IV (21:20)
[2019-09-01] MEDS: POTASSIUM CHLORIDE 80 MEQ in SODIUM CHLORIDE 0.9% 1,000 ML 260 ML IV (21:20)
--- NOTE | 2019-09-01 21:22 | PC.NURSE ---
insulin drip and potassium to continue in acute care.
[2019-09-01] MEDS: METOCLOPRAMIDE 10 MG/2 ML INJ IV (21:54)
[2019-09-01] MEDS: PIPERACILLIN-TAZO 3.375 GM/50 ML FROZ.PIGGY IV (22:00)
[2019-09-01] MEDS: SODIUM CHLORIDE 0.9% 1,000 ML 21 ML IV (22:08)
--- NOTE | 2019-09-01 23:03 | PC.NURSE ---
Patient brought to ICU from ER around 9pm. Patient obtunded but able to respond at times. Pain 10/10 LUQ, likely due to pancreatitis. Insulin on hold until night labs come back due to low potassium levels. Bolus hanging 500/hr for 1L. Patient voided 1x at very end of shift, UA sent. Patient has many skin abbesses that are oozing. Cultures sent. IV abx started. PIV x2 and left upper arm PICC.
[2019-09-02] VITALS (27 sets, daily range): BP systolic 96–136; BP diastolic 50–73; PULSE 97–136; RESP 16–43; TEMP 36.1–37.9; O2SAT 94–100
[2019-09-02 00:06] LABS: BUN Creatinine Ratio 8.7 (6-22); Blood Urea Nitrogen 20 mg/dL (9-20); Calcium 11.2 mg/dL (8.4-10.2); Chloride 113 mmol/L (98-107); Estimated Glomerular Filt Rate 34.5 mL/min (>60); Glucose 458 mg/dL (70-100); HEMOLYSIS < 15 (0-50); Magnesium 2.4 mg/dL (1.6-2.3); Phosphorous 4.3 mg/dL (2.5-4.5); Potassium 3.4 mmol/L (3.4-5.1)
[2019-09-02 00:07] LABS: Carbon Dioxide < 5 mmol/L (22-32)
[2019-09-02 00:08] LABS: Sodium 137 mmol/L (137-145)
[2019-09-02] MEDS: FAMOTIDINE 20 MG/50 ML PIGGYBACK 200 MG IV ×2 (00:29→11:56)
[2019-09-02] MEDS: VANCOMYCIN 2,000 MG/400 ML PIGGYBACK 200 MG IV (00:30)
[2019-09-02] MEDS: HYDROMORPHONE 2 MG INJ 1 MG IV ×4 (00:30→21:31)
[2019-09-02] MEDS: SODIUM CHLORIDE 0.45% 1,000 ML 200 ML IV ×3 (01:23→16:07)
[2019-09-02] MEDS: PIPERACILLIN-TAZO 3.375 GM/50 ML FROZ.PIGGY IV ×4 (02:42→21:37)
[2019-09-02 03:29] LABS: BUN Creatinine Ratio 9.2 (6-22); Blood Urea Nitrogen 22 mg/dL (9-20); Calcium 11.5 mg/dL (8.4-10.2); Chloride 116 mmol/L (98-107); Estimated Glomerular Filt Rate 32.9 mL/min (>60); Glucose 420 mg/dL (70-100); HEMOLYSIS < 15 (0-50); Hematocrit 47.6 % (41-53); Hemoglobin 15.5 g/dL (13.5-17.5); Magnesium 2.4 mg/dL (1.6-2.3); Mean Corpuscular HGB Conc 32.5 % (30-36); Mean Corpuscular Hemoglobin 28.7 PG (26-34); Mean Corpuscular Volume 88.3 fL (80-100); Platelet Count 298 X10^3/uL (150-400); Red Blood Cell Count 5.39 X10^6/uL (4.5-5.9); Red Cell Distribution Width 20.9 % (11.6-14.8); Sodium 139 mmol/L (137-145); White Blood Cell Count 20.2 X10^3/uL (4.5-11.0)
[2019-09-02 03:31] LABS: Carbon Dioxide 6 mmol/L (22-32)
[2019-09-02 03:33] LABS: Add Manual Diff / Slide Review YES
[2019-09-02 03:46] LABS: Anisocytosis 2+; Neutrophils Absolute Manual 17978 /uL (3000-5900); Total Cells Counted 100
[2019-09-02 03:58] LABS: Lipase 12116 U/L (23-300)
[2019-09-02] MEDS: POTASSIUM CHLORIDE 60 MEQ in SODIUM CHLORIDE 0.9% 500 ML 88.333 ML IV ×2 (04:51→15:49)
[2019-09-02] MEDS: SODIUM CHLORIDE 0.45% 1,000 ML 500 ML IV (05:18)
[2019-09-02 06:19] LABS: Bacteria Urine None Seen; RBC Urine None Seen (0-5/HPF); WBC Urine None Seen (0-5/HPF)
[2019-09-02 06:20] LABS: Bilirubin Urine UA 2+ (NEGATIVE); Glucose Urine UA 1+ g/dL (Negative); Ketones Urine UA 3+ (NEGATIVE); Leukocyte Esterase Urine UA NEGATIVE (NEGATIVE); Nitrite Urine UA NEGATIVE (Negative); Occult Blood Urine UA 2+ (Negative); Protein Urine UA 2+ (Negative); Urobilinogen Urine UA 0.2 E.U./dL (0.2)
[2019-09-02 06:21] LABS: Appearance Urine UA Slightly Cloudy; Color Urine UA Dark Yellow
--- NOTE | 2019-09-02 06:21 | PC.NURSE ---
[facility] Shift Note-Patient was restless and oriented to place at midnight, 1mg IV Dilaudid given for c/o LUQ pain, rating 9/10, also having dry heaves without emesis. NPO, IV fluids infusing as ordered, K+ Riders administered, scheduled IV abx and Pepcid. Insulin gtt, see flowsheet and Emar. Brown catheter placed, UA sent, labs drawn Q4h. Patient is solmulent in am. Remains ST 120s, Kussmaul breathing 30s, SpO2 .95% RA.
[2019-09-02 06:23] LABS: Amorphous Sediment Urine 1+; Culture Indicated Urine Cult Not Indicated; Ictotest Urine Positive (Negative); Squamous Epithelial Cell Urine 0-1 /HPF (0-5/HPF)
[2019-09-02 06:55] LABS: HCO3 VBG 5 mmol/L (23-28); Oxygen Saturation VBG 61 % (70-75); PCO2 VBG 19.2 mmHg (45-50); PO2 VBG 46 mmHg (35-45); Total CO2 VBG 6 mmol/L (24-29); pH VBG 7.02 (7.33-7.43)
[2019-09-02 07:20] LABS: BUN Creatinine Ratio 8.9 (6-22); Blood Urea Nitrogen 24 mg/dL (9-20); Calcium 11.5 mg/dL (8.4-10.2); Chloride 115 mmol/L (98-107); Estimated Glomerular Filt Rate 28.7 mL/min (>60); Glucose 374 mg/dL (70-100); Magnesium 2.2 mg/dL (1.6-2.3); Phosphorous 1.8 mg/dL (2.5-4.5); Sodium 137 mmol/L (137-145)
[2019-09-02 07:36] LABS: HEMOLYSIS 75 (0-50)
[2019-09-02 07:37] LABS: Carbon Dioxide 5 mmol/L (22-32); Potassium 2.9 mmol/L (3.4-5.1)
[2019-09-02] MEDS: INSULIN DRIP PREMIX 100 UNIT/100 ML PLAST..BAG 15.6 UNIT IV (08:09)
[2019-09-02] MEDS: ENOXAPARIN 40 MG/0.4 ML SYRINGE SUBCUT (08:10)
[2019-09-02] MEDS: POTASSIUM CHLORIDE 40 MEQ in SODIUM CHLORIDE 0.9% 500 ML 130 ML IV (08:42)
[2019-09-02 10:04] LABS: Alanine Aminotransferase 14 IU/L (<50); Albumin 2.7 g/dL (3.5-5.0); Albumin Globulin Ratio 0.7 (1.0-2.8); Alkaline Phosphatase 187 U/L (38-126); Aspartate Aminotransferase 19 IU/L (17-59); Bilirubin Total 0.7 mg/dL (0.2-1.3); Bilirubin Unconjugated 0.3 mg/dL (0.0-1.1); Globulin 4.1 g/dL (1.7-4.1); HEMOLYSIS < 15 (0-50); Total Protein 6.8 g/dL (6.3-8.2)
[2019-09-02] MEDS: VANCOMYCIN 1,000 MG/200 ML PIGGYBACK 200 MG IV ×2 (11:59→23:52)
--- NOTE | 2019-09-02 13:02 | P.PN_ITS ---
Subjective Subjective Date Patient Seen: 09/02/19 Time Patient Seen: 07:30 Interval history: Patient is a 24-year-old male with recently diagnosed diabetes admitted to ICU with DKA, acute pancreatitis, acute kidney injury, multiple draining skin abscesses and sepsis. On exam this a.m. patient is stuporous and unresponsive to commands. Exam Vital Signs (past 8 hours): - 09/02/19 06:00 09/02/19 06:59 09/02/19 08:00 Temperature 98.2 F Pulse Rate 130 H 129 H Respiratory Rate 43 H Blood Pressure 133/62 133/62 111/58 L Pulse Oximetry 98 09/02/19 09:00 09/02/19 10:00 09/02/19 11:04 Temperature 98.2 F 98.6 F 98.4 F Pulse Rate 130 H 129 H 129 H Respiratory Rate 31 H 33 H 33 H Blood Pressure 105/51 L 103/54 L 102/50 L Pulse Oximetry 95 96 96 09/02/19 12:00 Temperature 98.3 F Pulse Rate 127 H Respiratory Rate 37 H Blood Pressure 103/52 L Pulse Oximetry 96 Oxygen Delivery Method Room Air Oxygen Flow Rate 0 Narrative Exam Narrative: GENERAL: Unresponsive male with severe obesity HEAD: Atraumatic. Normocephalic. EYES: Pupils equal, round and reactive. NECK: Trachea midline. No JVD or lymphadenopathy. CARDIOVASCULAR: Tachycardic with regular rhythm RESPIRATORY: Clear to auscultation bilaterally. GASTROINTESTINAL: Abdomen obese, tenderness not elicited. EXTREMITIES: No pretibial edema. NEUROLOGICAL: Unresponsive, no localizing signs SKIN: Multiple skin abscesses, largest appears on right lower abdominal wall which is spontaneously draining, multiple other small skin abscesses on the right medial and posterior thigh and scrotal which are spontaneous draining Objective Labs Result Diagrams: 09/02/19 03:10 09/02/19 07:00 Labs: Laboratory Results - last 24 hr 09/01/19 09/01/19 09/01/19 12:34 12:45 12:45 WBC 17.2 H RBC 5.94 H Hgb 16.8 Hct 51.5 MCV 86.8 MCH 28.4 MCHC 32.7 RDW 20.6 H Plt Count 383 Neut % (Auto) 83.0 H Lymph % (Auto) 5.5 L [place] % (Auto) 11.1 Eos % (Auto) 0.0 L Baso % (Auto) 0.4 Neut # (Auto) 93022 H Lymph # (Auto) 1000 L [place] # (Auto) 1900 H Eos # (Auto) 0 Baso # (Auto) 100 Total Counted Seg Neutrophils % Band Neutrophils % Lymphocytes % (Manual) Monocytes % (Manual) Myelocytes % Neutrophils # (Manual) RBC Morphology See below Anisocytosis 1+ H VBG pH 7.06 L* VBG pCO2 16.1 L VBG pO2 50 H VBG HCO3 5 L VBG Total CO2 5 L VBG O2 Saturation 70 VBG Base Excess -26.0 L Sodium Potassium Chloride Carbon Dioxide BUN Creatinine Estimated GFR BUN/Creatinine Ratio Glucose Lactate Calcium Phosphorus Magnesium Total Bilirubin Conjugated Bilirubin Unconjugated Bilirubin AST ALT Alkaline Phosphatase Total Protein Albumin Globulin Albumin/Globulin Ratio Lipase Procalcitonin 0.12 Urine Color Urine Appearance Urine pH Ur Specific [place] Urine Protein Urine Glucose (UA) Urine Ketones Urine Occult Blood Urine Nitrate Urine Bilirubin Ur Bilirubin Confirm Urine Urobilinogen Ur Leukocyte Esterase Urine RBC Urine WBC Ur Squamous Epith Cells Amorphous Sediment Urine Bacteria Ur Culture Indicated? Nasal Screen MRSA (PCR) Vancomycin Trough Ketones 09/01/19 09/01/19 09/01/19 12:45 12:45 12:45 WBC RBC Hgb Hct MCV MCH MCHC RDW Plt Count Neut % (Auto) Lymph % (Auto) [place] % (Auto) Eos % (Auto) Baso % (Auto) Neut # (Auto) Lymph # (Auto) [place] # (Auto) Eos # (Auto) Baso # (Auto) Total Counted Seg Neutrophils % Band Neutrophils % Lymphocytes % (Manual) Monocytes % (Manual) Myelocytes % Neutrophils # (Manual) RBC Morphology Anisocytosis VBG pH VBG pCO2 VBG pO2 VBG HCO3 VBG Total CO2 VBG O2 Saturation VBG Base Excess Sodium 138 Potassium 2.4 L* Chloride 110 H Carbon Dioxide < 5 L* BUN 13 Creatinine 1.40 H Estimated GFR > 60.0 BUN/Creatinine Ratio 9.3 Glucose 449 H Lactate 1.5 Calcium 10.5 H Phosphorus Magnesium Total Bilirubin 0.8 Conjugated Bilirubin Unconjugated Bilirubin AST 16 L ALT 15 Alkaline Phosphatase 237 H Total Protein 8.9 H Albumin 4.0 Globulin 4.9 H Albumin/Globulin Ratio 0.8 L Lipase 47707 H Procalcitonin Urine Color Urine Appearance Urine pH Ur Specific [place] Urine Protein Urine Glucose (UA) Urine Ketones Urine Occult Blood Urine Nitrate Urine Bilirubin Ur Bilirubin Confirm Urine Urobilinogen Ur Leukocyte Esterase Urine RBC Urine WBC Ur Squamous Epith Cells Amorphous Sediment Urine Bacteria Ur Culture Indicated? Nasal Screen MRSA (PCR) Vancomycin Trough Ketones 6.64 H 09/01/19 09/01/19 09/01/19 15:39 15:39 17:45 WBC RBC Hgb Hct MCV MCH MCHC RDW Plt Count Neut % (Auto) Lymph % (Auto) [place] % (Auto) Eos % (Auto) Baso % (Auto) Neut # (Auto) Lymph # (Auto) [place] # (Auto) Eos # (Auto) Baso # (Auto) Total Counted Seg Neutrophils % Band Neutrophils % Lymphocytes % (Manual) Monocytes % (Manual) Myelocytes % Neutrophils # (Manual) RBC Morphology Anisocytosis VBG pH VBG pCO2 VBG pO2 VBG HCO3 VBG Total CO2 VBG O2 Saturation VBG Base Excess Sodium Potassium 2.6 L* 2.8 L Chloride Carbon Dioxide BUN Creatinine Estimated GFR BUN/Creatinine Ratio Glucose 420 H 418 H Lactate Calcium Phosphorus Magnesium Total Bilirubin Conjugated Bilirubin Unconjugated Bilirubin AST ALT Alkaline Phosphatase Total Protein Albumin Globulin Albumin/Globulin Ratio Lipase Procalcitonin Urine Color Urine Appearance Urine pH Ur Specific [place] Urine Protein Urine Glucose (UA) Urine Ketones Urine Occult Blood Urine Nitrate Urine Bilirubin Ur Bilirubin Confirm Urine Urobilinogen Ur Leukocyte Esterase Urine RBC Urine WBC Ur Squamous Epith Cells Amorphous Sediment Urine Bacteria Ur Culture Indicated? Nasal Screen MRSA (PCR) Vancomycin Trough Ketones 09/01/19 09/01/19 09/01/19 19:16 19:24 19:24 WBC RBC Hgb Hct MCV MCH MCHC RDW Plt Count Neut % (Auto) Lymph % (Auto) [place] % (Auto) Eos % (Auto) Baso % (Auto) Neut # (Auto) Lymph # (Auto) [place] # (Auto) Eos # (Auto) Baso # (Auto) Total Counted Seg Neutrophils % Band Neutrophils % Lymphocytes % (Manual) Monocytes % (Manual) Myelocytes % Neutrophils # (Manual) RBC Morphology Anisocytosis VBG pH 7.02 L* VBG pCO2 17.4 L VBG pO2 66 H VBG HCO3 5 L VBG Total CO2 5 L VBG O2 Saturation 82 H VBG Base Excess -27.0 L Sodium Potassium 3.0 L Chloride Carbon Dioxide BUN Creatinine Estimated GFR BUN/Creatinine Ratio Glucose Lactate Calcium Phosphorus 4.3 Magnesium 2.6 H Total Bilirubin Conjugated Bilirubin Unconjugated Bilirubin AST ALT Alkaline Phosphatase Total Protein Albumin Globulin Albumin/Globulin Ratio Lipase Procalcitonin Urine Color Urine Appearance Urine pH Ur Specific [place] Urine Protein Urine Glucose (UA) Urine Ketones Urine Occult Blood Urine Nitrate Urine Bilirubin Ur Bilirubin Confirm Urine Urobilinogen Ur Leukocyte Esterase Urine RBC Urine WBC Ur Squamous Epith Cells Amorphous Sediment Urine Bacteria Ur Culture Indicated? Nasal Screen MRSA (PCR) Vancomycin Trough Ketones 09/01/19 09/01/19 09/01/19 23:45 23:45 23:45 WBC RBC Hgb Hct MCV MCH MCHC RDW Plt Count Neut % (Auto) Lymph % (Auto) [place] % (Auto) Eos % (Auto) Baso % (Auto) Neut # (Auto) Lymph # (Auto) [place] # (Auto) Eos # (Auto) Baso # (Auto) Total Counted Seg Neutrophils % Band Neutrophils % Lymphocytes % (Manual) Monocytes % (Manual) Myelocytes % Neutrophils # (Manual) RBC Morphology Anisocytosis VBG pH VBG pCO2 VBG pO2 VBG HCO3 VBG Total CO2 VBG O2 Saturation VBG Base Excess Sodium 137 Potassium 3.4 Chloride 113 H Carbon Dioxide < 5 L* BUN 20 Creatinine 2.30 H Estimated GFR 34.5 L BUN/Creatinine Ratio 8.7 Glucose 458 H Lactate Calcium 11.2 H Phosphorus 4.3 Magnesium 2.4 H Total Bilirubin Conjugated Bilirubin Unconjugated Bilirubin AST ALT Alkaline Phosphatase Total Protein Albumin Globulin Albumin/Globulin Ratio Lipase Procalcitonin Urine Color Urine Appearance Urine pH Ur Specific [place] Urine Protein Urine Glucose (UA) Urine Ketones Urine Occult Blood Urine Nitrate Urine Bilirubin Ur Bilirubin Confirm Urine Urobilinogen Ur Leukocyte Esterase Urine RBC Urine WBC Ur Squamous Epith Cells Amorphous Sediment Urine Bacteria Ur Culture Indicated? Nasal Screen MRSA (PCR) Negative for mrsa Vancomycin Trough Ketones 09/02/19 09/02/19 09/02/19 03:10 03:10 03:10 WBC 20.2 H RBC 5.39 Hgb 15.5 Hct 47.6 MCV 88.3 MCH 28.7 MCHC 32.5 RDW 20.9 H Plt Count 298 Neut % (Auto) Not Reportable Lymph % (Auto) Not Reportable [place] % (Auto) Not Reportable Eos % (Auto) Not Reportable Baso % (Auto) Not Reportable Neut # (Auto) Lymph # (Auto) Not Reportable [place] # (Auto) Not Reportable Eos # (Auto) Baso # (Auto) Not Reportable Total Counted 100 Seg Neutrophils % 69.0 Band Neutrophils % 20.0 H Lymphocytes % (Manual) 1.0 L Monocytes % (Manual) 9.0 Myelocytes % 1.0 H Neutrophils # (Manual) 86534 H RBC Morphology See below Anisocytosis 2+ H VBG pH VBG pCO2 VBG pO2 VBG HCO3 VBG Total CO2 VBG O2 Saturation VBG Base Excess Sodium 139 Potassium 3.0 L Chloride 116 H Carbon Dioxide 6 L* BUN 22 H Creatinine 2.40 H Estimated GFR 32.9 L BUN/Creatinine Ratio 9.2 Glucose 420 H Lactate Calcium 11.5 H Phosphorus 3.0 D Magnesium 2.4 H Total Bilirubin Conjugated Bilirubin Unconjugated Bilirubin AST ALT Alkaline Phosphatase Total Protein Albumin Globulin Albumin/Globulin Ratio Lipase Procalcitonin Urine Color Urine Appearance Urine pH Ur Specific [place] Urine Protein Urine Glucose (UA) Urine Ketones Urine Occult Blood Urine Nitrate Urine Bilirubin Ur Bilirubin Confirm Urine Urobilinogen Ur Leukocyte Esterase Urine RBC Urine WBC Ur Squamous Epith Cells Amorphous Sediment Urine Bacteria Ur Culture Indicated? Nasal Screen MRSA (PCR) Vancomycin Trough Ketones 09/02/19 09/02/19 09/02/19 03:10 03:10 05:15 WBC RBC Hgb Hct MCV MCH MCHC RDW Plt Count Neut % (Auto) Lymph % (Auto) [place] % (Auto) Eos % (Auto) Baso % (Auto) Neut # (Auto) Lymph # (Auto) [place] # (Auto) Eos # (Auto) Baso # (Auto) Total Counted Seg Neutrophils % Band Neutrophils % Lymphocytes % (Manual) Monocytes % (Manual) Myelocytes % Neutrophils # (Manual) RBC Morphology Anisocytosis VBG pH VBG pCO2 VBG pO2 VBG HCO3 VBG Total CO2 VBG O2 Saturation VBG Base Excess Sodium Potassium Chloride Carbon Dioxide BUN Creatinine Estimated GFR BUN/Creatinine Ratio Glucose Lactate Calcium Phosphorus Magnesium Total Bilirubin Conjugated Bilirubin Unconjugated Bilirubin AST ALT Alkaline Phosphatase Total Protein Albumin Globulin Albumin/Globulin Ratio Lipase 61744 H Procalcitonin 1.70 H Urine Color Dark yellow Urine Appearance Slightly cloudy Urine pH 6.0 Ur Specific [place] 1.010 Urine Protein 2+ H Urine Glucose (UA) 1+ H Urine Ketones 3+ H Urine Occult Blood 2+ H Urine Nitrate Negative Urine Bilirubin 2+ H Ur Bilirubin Confirm Positive H Urine Urobilinogen 0.2 Ur Leukocyte Esterase Negative Urine RBC None seen Urine WBC None seen Ur Squamous Epith Cells 0-1 /hpf Amorphous Sediment 1+ Urine Bacteria None seen Ur Culture Indicated? Cult not indicated Nasal Screen MRSA (PCR) Vancomycin Trough Ketones 09/02/19 09/02/19 09/02/19 06:18 07:00 07:00 WBC RBC Hgb Hct MCV MCH MCHC RDW Plt Count Neut % (Auto) Lymph % (Auto) [place] % (Auto) Eos % (Auto) Baso % (Auto) Neut # (Auto) Lymph # (Auto) [place] # (Auto) Eos # (Auto) Baso # (Auto) Total Counted Seg Neutrophils % Band Neutrophils % Lymphocytes % (Manual) Monocytes % (Manual) Myelocytes % Neutrophils # (Manual) RBC Morphology Anisocytosis VBG pH 7.02 L* VBG pCO2 19.2 L VBG pO2 46 H VBG HCO3 5 L VBG Total CO2 6 L VBG O2 Saturation 61 L VBG Base Excess -26.0 L Sodium 137 Potassium 2.9 L Chloride 115 H Carbon Dioxide 5 L* BUN 24 H Creatinine 2.70 H Estimated GFR 28.7 L BUN/Creatinine Ratio 8.9 Glucose 374 H Lactate Calcium 11.5 H Phosphorus 1.8 L D Magnesium 2.2 Total Bilirubin Conjugated Bilirubin Unconjugated Bilirubin AST ALT Alkaline Phosphatase Total Protein Albumin Globulin Albumin/Globulin Ratio Lipase Procalcitonin Urine Color Urine Appearance Urine pH Ur Specific [place] Urine Protein Urine Glucose (UA) Urine Ketones Urine Occult Blood Urine Nitrate Urine Bilirubin Ur Bilirubin Confirm Urine Urobilinogen Ur Leukocyte Esterase Urine RBC Urine WBC Ur Squamous Epith Cells Amorphous Sediment Urine Bacteria Ur Culture Indicated? Nasal Screen MRSA (PCR) Vancomycin Trough Ketones 09/02/19 09/02/19 07:45 07:45 WBC RBC Hgb Hct MCV MCH MCHC RDW Plt Count Neut % (Auto) Lymph % (Auto) [place] % (Auto) Eos % (Auto) Baso % (Auto) Neut # (Auto) Lymph # (Auto) [place] # (Auto) Eos # (Auto) Baso # (Auto) Total Counted Seg Neutrophils % Band Neutrophils % Lymphocytes % (Manual) Monocytes % (Manual) Myelocytes % Neutrophils # (Manual) RBC Morphology Anisocytosis VBG pH VBG pCO2 VBG pO2 VBG HCO3 VBG Total CO2 VBG O2 Saturation VBG Base Excess Sodium Potassium Chloride Carbon Dioxide BUN Creatinine Estimated GFR BUN/Creatinine Ratio Glucose Lactate Calcium Phosphorus Magnesium Total Bilirubin 0.7 Conjugated Bilirubin 0.0 Unconjugated Bilirubin 0.3 AST 19 ALT 14 Alkaline Phosphatase 187 H Total Protein 6.8 Albumin 2.7 L Globulin 4.1 Albumin/Globulin Ratio 0.7 L Lipase Procalcitonin Urine Color Urine Appearance Urine pH Ur Specific [place] Urine Protein Urine Glucose (UA) Urine Ketones Urine Occult Blood Urine Nitrate Urine Bilirubin Ur Bilirubin Confirm Urine Urobilinogen Ur Leukocyte Esterase Urine RBC Urine WBC Ur Squamous Epith Cells Amorphous Sediment Urine Bacteria Ur Culture Indicated? Nasal Screen MRSA (PCR) Vancomycin Trough 27.0 H* Ketones Assessment & Plan Assessment & Plan narrative: Patient is a 24-year-old male with recently diagnosed diabetes admitted to ICU with DKA, acute pancreatitis, acute kidney injury, multiple draining skin abscesses and sepsis. 1. Acute diabetic ketoacidosis, present on admission -glucose 300 this a.m., severe anion gap acidosis with ketosis -patient only diagnosed with diabetes on hospital admission on 06/14/2019 with non ketotic, non acidotic hyperglycemia. -patient with multiple etiology for DKA including multiple skin abscesses, pancreatitis and running out of Lantus. -continue DKA protocol for fluids and insulin drip titration, blood sugars q.1 hour, current fluids D5 half NS increased to 200 cc/hour -continue serial chemistries including BMP, magnesium, phosphate every 4 hours until stable -continue IV potassium replacement for low K -check hemoglobin A1c 2. Acute pancreatitis, present on admission -etiology possibly drug related from metformin started in June last year, patient was on high dose of 3000 mg daily -patient with left upper quadrant and epigastric abdominal pain described as dull, aching and occasionally sharp worsening over 3 days. -CT exam finds pancreas enlarged with surrounding inflammation, no abscess, pseudocyst or necrosis noted, gallbladder and ducts are normal in appearance. -initial labs with leukocytosis 17.2, lipase elevated at 19,398. -patient is NPO -continue aggressive volume resuscitation 3. Multiple skin abscesses with purulent drainage, present on admission, active -put patient with multiple skin lesions with open wounds, draining wounds and abscesses. -purulent material expressed and cultured, Gram-positive cocci and Gram-positive rods on Gram stain. -continue Zosyn 3.375 g IV every 6 hours -continue vancomycin pharmacy to dose, initial elevated level is not a true trough -consult general surgery for evaluation of additional I and D abscess once patient is more clinically stable. -wound care-clean open wounds twice daily with soap and water and cover with dressing. -patient is placed on contact isolation. 4. Sepsis, acute, present on admission, active -possible sources multiple skin abscesses with concern of primary or secondary bacteremia -patient with initial leukocytosis of 17.2, with organ dysfunction including tachycardia at 129, respirations are elevated 45 this is related to severe metabolic acidosis secondary DKA, acute kidney injury with elevated creatinine at 1.4 and altered mental status with GCS of 10. -patient with increased WBC 20 K with severe bandemia and significant increase in procalcitonin on today's labs -wound culture positive for GPC and Gram-positive rods -Blood cultures results pending -Continue vancomycin and Zosyn 5. Acute kidney injury, present on admission, active. -current creatinine 2.7 climbing, patient is oliguric -his admission CT was without contrast -patient with no prior renal disease presents with creatinine initially elevated at 1.4 with baseline of 0.8. -likely multifactorial with acute dehydration with hemoconcentration, metabolic acidosis and infection. -continue volume resuscitation -will seek to minimize renal toxic medications, and renal dose medications as needed. -hold lisinopril given for hypertension -monitor renal function closely 6. Acute metabolic encephalopathy, present on admission -etiology secondary to severe acidosis with DKA and sepsis -treat underlying causes 7. Severe obesity -BMI 46 8. DVT prophylaxis -Lovenox 40 mg subcu daily Patient is critically ill and being managed in ICU. Total critical care management up to 60 minutes during course of today's encounters.
[2019-09-02] MEDS: DEXTROSE 5%-0.45% NS 1,000 ML 150 ML IV (13:09)
[2019-09-02] MEDS: HYDROMORPHONE 0.5 MG INJ IV (13:44)
[2019-09-02 13:55] LABS: BUN Creatinine Ratio 9.3 (6-22); Blood Urea Nitrogen 28 mg/dL (9-20); Chloride 121 mmol/L (98-107); Estimated Glomerular Filt Rate 25.4 mL/min (>60); Glucose 199 mg/dL (70-100); HEMOLYSIS < 15 (0-50); Potassium 2.8 mmol/L (3.4-5.1); Sodium 140 mmol/L (137-145)
[2019-09-02 13:56] LABS: Magnesium 2.1 mg/dL (1.6-2.3)
[2019-09-02] MEDS: INSULIN DRIP PREMIX 100 UNIT/100 ML PLAST..BAG 12.5 UNIT IV ×2 (14:13→21:15)
[2019-09-02 14:19] LABS: Carbon Dioxide 7 mmol/L (22-32)
[2019-09-02 14:20] LABS: Calcium 11.8 mg/dL (8.4-10.2); Phosphorous 0.8 mg/dL (2.5-4.5)
[2019-09-02] MEDS: SODIUM CHLORIDE 0.9% 1,000 ML 1000 ML IV (14:35)
--- NOTE | 2019-09-02 14:37 | PC.NURSE ---
Day Shift Note Pt obtunded this shift, opens eyes on occasion to voice, not answering questions or tracking. Does express pain to stomach intermittently, medicated with Dilaudid per emar. Insulin gtt infusing per DKA protocol, IV fluids per protocol/Dr. Gaitan (see orders). ST in the 130s, RA with SpO2 95-97%. PVCs present this morning, occ. PVCs noted this afternoon. [place] respirations in the 30s throughout shift. 60 meq K rider infusing from school age program teacher, additional 40 meq K rider ordered for K of 2.9 - infused simultaneously through DL PICC, reviewed with pharmacy and MD prior to infusing. BMP drawn after KCl infused per MD orders. KCl 2.8 on recheck - reviewed all [address] Gaitan, new orders received. Brown catheter in place with 250 ml out. Family updated. Call light is within reach.
--- NOTE | 2019-09-02 15:26 | CM.DANOTE ---
DCP Brief Assessment: EMR reviewed: Patient is a 24 yr old male who was admitted to ICU for DKA and Sepsis. Patient PCP is Dr Coles. CM/Rn attempted to meet with patient at the bedside but patient was not responding to CM/RN Questions. Patient would open his eyes and look at CM/RN but patient was not speaking. According to patients EMR patient is a full code and was just diagnosed diabetic in Jun 2019. Patient currently has wounds on his legs and is on multiple IV antibiotics. Dietitian consultation is pending. according to EMR patient lives with his parents in [place] and designated his mother Hiral Samson as his POA. I: Medicaid and [facility] Plan: CM department will follow up with patient when patient is more alert and responsive to D/C planning. Hermila Jarquin RN Discharge Planning/Care Management CM Discharge Assessment Start: 09/02/19 15:23 Freq: Status: Active Protocol: Document 09/02/19 15:23 HS (Rec: 09/02/19 15:26 HS [id number]) Discharge Planning Assessment Assigned Facilities Maintenance Supervisor Hermila Jarquin RN DPOA/Assigned Designee Name Hiral Samson (mom) Contact Information [phone] Advance Directives? No Advance Directives on File No History Provided By Patient,Medical Record Has Patient been admitted in last 30 No days? Comment patient was seen in the Ed and admitted to the hospital 06/14 Prior Living Arrangements House Household Members family Type of transporation used prior to Drives own vehicle admit Independent with ADL's Yes Is patient alert and oriented? No: Patient would open his eyes to questions but did not respond Caregiver for Another No Discharge Plan Home Transportation Arrangement Family Whiteboard Updated in Patient Room with Yes name and ext. # of Facilities Maintenance Supervisor Review Status In Process Next Review Type Continued Stay Review
--- NOTE | 2019-09-02 15:43 | DIET.PN ---
Dietary Progress Note RD attempted interview, pt inappropriate for education at this time, will meet c pt Sunday am.
[2019-09-02 18:18] LABS: Magnesium 1.5 mg/dL (1.6-2.3)
[2019-09-02 18:22] LABS: Phosphorous 0.8 mg/dL (2.5-4.5)
[2019-09-02 18:24] LABS: pH VBG 6.99 (7.33-7.43)
[2019-09-02 18:25] LABS: HCO3 VBG 8 mmol/L (23-28); PCO2 VBG 33.4 mmHg (45-50); PO2 VBG 40 mmHg (35-45); Total CO2 VBG 9 mmol/L (24-29)
[2019-09-02 18:27] LABS: Oxygen Saturation VBG 50 % (70-75)
[2019-09-02] MEDS: SODIUM BICARB 8.4% VIAL 150 MEQ in DEXTROSE 5% WATER 1,000 ML 1000 MEQ IV (19:05)
[2019-09-02] MEDS: DEXTROSE 5%-0.45% NS 1,000 ML 200 ML IV (20:31)
[2019-09-02 21:53] LABS: HCO3 ABG 9 mmol/L (22-26); Oxygen Saturation ABG 98 % (95-100); PCO2 ABG 32.3 mmHg (35-45); PO2 ABG 150 mmHg (80-100); TCO2 ABG 10 mmol/L (21-31); pH ABG 7.07 (7.35-7.45)
[2019-09-02 22:36] LABS: BUN Creatinine Ratio 8.9 (6-22); Blood Urea Nitrogen 31 mg/dL (9-20); Calcium 11.5 mg/dL (8.4-10.2); Carbon Dioxide 10 mmol/L (22-32); Chloride 119 mmol/L (98-107); Estimated Glomerular Filt Rate 21.3 mL/min (>60); Glucose 274 mg/dL (70-100); HEMOLYSIS < 15 (0-50); Sodium 138 mmol/L (137-145)
[2019-09-02 22:37] LABS: Magnesium 1.9 mg/dL (1.6-2.3)
[2019-09-02 22:40] LABS: Potassium 2.6 mmol/L (3.4-5.1)
[2019-09-02] MEDS: SODIUM BICARB 8.4% VIAL 50 MEQ in SODIUM CHLORIDE 0.9% 1,000 ML 150 MEQ IV (22:47)
--- NOTE | 2019-09-02 22:59 | PC.NURSE ---
Addendum entered by Jo Ann Blanc R.N. 09/02/19 23:17: Original Note: Patient put on BIPAP after VBG returned with worsening pH 6.9. RR has come down to 18 with BIPAP and patient is tolerating well until it's close to time for Dilaudid, at which time he tries to take the mask off periodically. Dilaudid given 2x. BP and HR are more stable. Bicarb bolus ordered and ABG after finished shows improvement to 7.0. 80meq potassium finished around 2130 and came back lower at 2.6 and phos improved to 1.0. Bicarb drip ordered and started. 80 meq KCl ordered but will be hung by nightshift. BGs have ranged from 170-260's. Goal is 200-250 per Yordan, FASHION DESIGNER. Currently 12.5 un/hr and D5 1/2 at 200 ml/hr running. Urine output 250ml for shift. Slight fever at 100.4, came down without intervention. Wounds (positive for MRSA) covered with abdominal pad and iván to keep pannus dry, Zosyn IV. Patient is very obtunded, only occasionally moaning or moving extremities. Possible next steps are transfer for dialysis if patient's labs do not improve.
[2019-09-02] MEDS: POTASSIUM CHLORIDE 80 MEQ in SODIUM CHLORIDE 0.9% 1,000 ML 130 ML IV (23:47)
[2019-09-03] VITALS (29 sets, daily range): BP systolic 72–142; BP diastolic 35–76; PULSE 110–124; RESP 16–26; TEMP 0–36.9; O2SAT 96–100
--- NOTE | 2019-09-03 | DI.RAD.S_ITS ---
PROCEDURE: XR CHEST 1V INDICATIONS: INTUBATION TUBE PLACEMENT TECHNIQUE: One view of the chest was acquired. COMPARISON: [facility], , XR CHEST FOR PICC 1V, 09/01/2019, 17:05. FINDINGS: Surgical changes and devices: N the ET tube has been placed, the tip of which vertex approximately 4.9 cm above the oseas. Lungs and pleura: The film taken on expiration. Question bilateral infiltrates. No pleural effusions or pneumothorax. Mediastinum: Mediastinal contours appear normal. Heart size is normal. Bones and chest wall: No suspicious bony lesions. Overlying soft tissues appear unremarkable. IMPRESSION: ET tube in satisfactory position. Film taken on expiration. Question bilateral infiltrates. Consider repeat chest film. Dictated by: Obey Balderrama M.D. on 09/03/2019 at 20:43 Approved by: Obey Balderrama M.D. on 09/03/2019 at 20:45
[2019-09-03] MEDS: HYDROMORPHONE 2 MG INJ 1 MG IV ×2 (01:12→10:27)
[2019-09-03] MEDS: DEXTROSE 5%-0.45% NS 1,000 ML 200 ML IV ×2 (01:52→07:13)
[2019-09-03] MEDS: PIPERACILLIN-TAZO 3.375 GM/50 ML FROZ.PIGGY IV ×2 (02:56→10:17)
[2019-09-03 04:31] LABS: Add Manual Diff / Slide Review NO; Basophils Absolute Auto 0 /uL (0-100); Basophils Percent Auto 0.2 % (0-2); Eosinophils Absolute Auto 0 /uL (0-450); Eosinophils Percent Auto 0.2 % (2-4); Hematocrit 39.7 % (41-53); Hemoglobin 13.2 g/dL (13.5-17.5); Lymphocytes Absolute Auto 800 /uL (1100-4500); Lymphocytes Percent Auto 5.4 % (25-40); Mean Corpuscular HGB Conc 33.3 % (30-36); Mean Corpuscular Hemoglobin 28.7 PG (26-34); Mean Corpuscular Volume 86.1 fL (80-100); Monocytes Absolute Auto 1700 /uL (0-900); Monocytes Percent Auto 12.1 % (3-14); Neutrophils Absolute Auto 11700 /uL (1500-7000); Neutrophils Percent Auto 82.1 % (50-75); Platelet Count 217 X10^3/uL (150-400); Red Blood Cell Count 4.61 X10^6/uL (4.5-5.9); Red Cell Distribution Width 21.3 % (11.6-14.8); White Blood Cell Count 14.2 X10^3/uL (4.5-11.0)
[2019-09-03 04:38] LABS: Alanine Aminotransferase 15 IU/L (<50); Albumin 2.5 g/dL (3.5-5.0); Albumin Globulin Ratio 0.6 (1.0-2.8); Alkaline Phosphatase 155 U/L (38-126); Aspartate Aminotransferase 32 IU/L (17-59); BUN Creatinine Ratio 8.9 (6-22); Bilirubin Total 0.6 mg/dL (0.2-1.3); Blood Urea Nitrogen 34 mg/dL (9-20); Calcium 11.3 mg/dL (8.4-10.2); Carbon Dioxide 11 mmol/L (22-32); Chloride 120 mmol/L (98-107); Estimated Glomerular Filt Rate 19.4 mL/min (>60); Globulin 3.9 g/dL (1.7-4.1); Glucose 256 mg/dL (70-100); HEMOLYSIS < 15 (0-50); Sodium 140 mmol/L (137-145); Total Protein 6.4 g/dL (6.3-8.2)
[2019-09-03 04:40] LABS: Hemoglobin A1C% w Est Avg Glu 12.5 % (4.0-6.0); Potassium 2.6 mmol/L (3.4-5.1)
[2019-09-03 04:41] LABS: Ketones (Beta-Hydroxybutyrate) 0.31 mmol/L (<0.27)
[2019-09-03 04:58] LABS: Anisocytosis 2+; Burr Cells 1+
[2019-09-03 05:07] LABS: Procalcitonin 1.16 ng/mL (<0.5)
[2019-09-03] MEDS: HYDROMORPHONE 0.5 MG INJ IV ×2 (05:24→05:31)
[2019-09-03] MEDS: INSULIN DRIP PREMIX 100 UNIT/100 ML PLAST..BAG 12.5 UNIT IV ×2 (06:36→15:51)
--- NOTE | 2019-09-03 06:42 | PC.NURSE ---
Publications Editor Note-Patient is on Bi-pap, tolerating poorly, intermittently attempting to pull mask off, briefly opens eyes to loud voice and moans frequently. IV Dilaudid given per prn, see Emar. Sodium bicarb, 80meq KCl, and D5 1/2NS infusing as ordered along with insulin gtt at 12.5units/hr throughout night. ST 115-120, RR 16-20 with Bi-pap, RR 30s without. Total UOP 275ml via Brown. See vital trends, assessments, and RN interventions,
[2019-09-03] MEDS: LORazepam 2 MG/ML INJ (08:15)
[2019-09-03] MEDS: SODIUM BICARB 8.4% VIAL 50 MEQ in SODIUM CHLORIDE 0.9% 1,000 ML 150 MEQ IV (08:30)
[2019-09-03 09:17] LABS: Alanine Aminotransferase 17 IU/L (<50); Albumin 2.4 g/dL (3.5-5.0); Albumin Globulin Ratio 0.6 (1.0-2.8); Alkaline Phosphatase 154 U/L (38-126); Aspartate Aminotransferase 55 IU/L (17-59); BUN Creatinine Ratio 8.8 (6-22); Bilirubin Total 0.6 mg/dL (0.2-1.3); Blood Urea Nitrogen 35 mg/dL (9-20); Calcium 11.3 mg/dL (8.4-10.2); Estimated Glomerular Filt Rate 18.2 mL/min (>60); Globulin 3.9 g/dL (1.7-4.1); Glucose 218 mg/dL (70-100); HEMOLYSIS < 15 (0-50); Potassium 2.8 mmol/L (3.4-5.1); Sodium 142 mmol/L (137-145); Total Protein 6.3 g/dL (6.3-8.2)
[2019-09-03 09:19] LABS: Carbon Dioxide 9 mmol/L (22-32); Chloride 122 mmol/L (98-107)
[2019-09-03 11:00] LABS: HCO3 ABG 8 mmol/L (22-26); Oxygen Saturation ABG 93 % (95-100); PCO2 ABG 26.1 mmHg (35-45); PO2 ABG 91 mmHg (80-100); TCO2 ABG 9 mmol/L (21-31)
[2019-09-03 11:01] LABS: Fractionated Inspired Oxygen 21
--- NOTE | 2019-09-03 12:14 | PC.NURSE ---
Addendum entered by Rafaela Sevilla R.N. 09/03/19 15:34: Updating Family at bedside, CBG continue to be below goal of 200-250. Dr Gaitan aware of labs, venous steve @ 1700 scheduled. Turning to offload pressure. Original Note: Am shift Pt very restless at start of shift, Bipap mask is on, but Pt is almost continuously making attempts to remove. As soon as it is off, RR increased to mid 30's. Work of breathing significantly increased as well. Bipap @ 16/8 21% o2. Spo2 stable during tachypnic events. Dr Gaitan at bedside, x1 Ativan given for agitation, this had significant improvement to Pt overall anxiety. Able to tolerate Bipap mask, and less tearful with staff interactions. Pt will open eyes and moan, but unable to communicate with staff during care. CBG controlled with goal 200-250. Replacment for K+ IV,
[2019-09-03] MEDS: POTASSIUM CHLORIDE 60 MEQ in SODIUM CHLORIDE 0.9% 500 ML 176.667 ML IV (12:18)
[2019-09-03] MEDS: SODIUM BICARB 8.4% VIAL 100 MEQ in DEXTROSE 5% WATER 1,000 ML 150 MEQ IV (12:21)
[2019-09-03 12:37] LABS: Vancomycin Trough 32.6 ug/mL (10-20)
[2019-09-03] MEDS: LORazepam 2 MG/ML INJ 1 MG IV (13:21)
--- NOTE | 2019-09-03 13:24 | PM.PN.1 ---
Subjective Subjective Date Patient Seen: 09/03/19 Interval history: Patient is seen in intensive care unit. He is a 24-year-old male with recently diagnosed diabetes with DKA, acute pancreatitis, acute kidney injury, multiple draining skin abscesses and sepsis. He is on insulin drip, sodium bicarbonate drip to improve acidosis, antibiotics, continuous IV potassium replacement. Urine output has been low overnight about 30 cc/hour in spite of aggressive volume resuscitation. On exam this a.m. he appears anxious, will not open eyes and trying to pull off his BiPAP. He does not give verbal response but shakes head when asked if he is having any pain. Exam Vital Signs (past 8 hours): - 09/03/19 06:00 09/03/19 06:04 09/03/19 08:00 Temperature 97.8 F Pulse Rate 117 H 114 H Respiratory Rate 20 25 H Blood Pressure 124/59 L 134/63 124/59 L Pulse Oximetry 98 98 09/03/19 08:12 09/03/19 09:00 09/03/19 10:00 Temperature 98.0 F 98.0 F Pulse Rate 110 H 120 H Respiratory Rate 21 23 Blood Pressure 124/59 L 132/63 142/75 H Pulse Oximetry 99 97 09/03/19 10:54 09/03/19 11:00 09/03/19 12:00 Temperature 98.5 F 97.8 F Pulse Rate 122 H 114 H Respiratory Rate 26 H 22 Blood Pressure 142/75 H 119/58 L 109/60 Pulse Oximetry 98 99 Fraction of Inspired Oxygen 30 Oxygen Delivery Method BiPAP Oxygen Flow Rate 30 Narrative Exam Narrative: GENERAL: Anxious tuberous male trying to pull off BiPAP (less anxiety after lorazepam) HEAD: Atraumatic. Normocephalic. EYES: Pupils equal, round and reactive. CARDIOVASCULAR: Tachycardic with regular rhythm, no ectopy on tele RESPIRATORY: Clear to auscultation bilaterally. GASTROINTESTINAL: Abdomen obese, tenderness not elicited. EXTREMITIES: No pretibial edema. SKIN: Multiple skin abscesses, the open one on right lower abdominal wall is no longer draining, there is also large open one on left lower abdomen which is not draining, multiple other small open skin abscesses on the right medial and posterior thigh and scrotal which do not seem to be draining Objective Labs Result Diagrams: 09/03/19 04:10 09/03/19 08:35 Labs: Laboratory Results - last 24 hr 09/02/19 09/02/19 09/02/19 13:30 13:30 13:30 WBC RBC Hgb Hct MCV MCH MCHC RDW Plt Count Neut % (Auto) Lymph % (Auto) [place] % (Auto) Eos % (Auto) Baso % (Auto) Neut # (Auto) Lymph # (Auto) [place] # (Auto) Eos # (Auto) Baso # (Auto) RBC Morphology Anisocytosis [place] Cells ABG pH ABG pCO2 ABG pO2 ABG HCO3 ABG Total CO2 ABG O2 Saturation ABG Base Excess VBG pH VBG pCO2 VBG pO2 VBG HCO3 VBG Total CO2 VBG O2 Saturation VBG Base Excess FiO2 Sodium 140 Potassium 2.8 L Chloride 121 H Carbon Dioxide 7 L* BUN 28 H Creatinine 3.00 H Estimated GFR 25.4 L BUN/Creatinine Ratio 9.3 Glucose 199 H D Hemoglobin A1c Calcium 11.8 H Phosphorus 0.8 L* D Magnesium 2.1 Total Bilirubin AST ALT Alkaline Phosphatase Total Protein Albumin Globulin Albumin/Globulin Ratio Procalcitonin Vancomycin Trough Ketones 09/02/19 09/02/19 09/02/19 17:50 17:50 18:02 WBC RBC Hgb Hct MCV MCH MCHC RDW Plt Count Neut % (Auto) Lymph % (Auto) [place] % (Auto) Eos % (Auto) Baso % (Auto) Neut # (Auto) Lymph # (Auto) [place] # (Auto) Eos # (Auto) Baso # (Auto) RBC Morphology Anisocytosis [place] Cells ABG pH ABG pCO2 ABG pO2 ABG HCO3 ABG Total CO2 ABG O2 Saturation ABG Base Excess VBG pH 6.99 L* VBG pCO2 33.4 L VBG pO2 40 VBG HCO3 8 L VBG Total CO2 9 L VBG O2 Saturation 50 L VBG Base Excess -23.0 L FiO2 Sodium Potassium Chloride Carbon Dioxide BUN Creatinine Estimated GFR BUN/Creatinine Ratio Glucose Hemoglobin A1c Calcium Phosphorus 0.8 L* Magnesium 1.5 L Total Bilirubin AST ALT Alkaline Phosphatase Total Protein Albumin Globulin Albumin/Globulin Ratio Procalcitonin Vancomycin Trough Ketones 09/02/19 09/02/19 09/02/19 21:33 22:15 22:15 WBC RBC Hgb Hct MCV MCH MCHC RDW Plt Count Neut % (Auto) Lymph % (Auto) [place] % (Auto) Eos % (Auto) Baso % (Auto) Neut # (Auto) Lymph # (Auto) [place] # (Auto) Eos # (Auto) Baso # (Auto) RBC Morphology Anisocytosis [place] Cells ABG pH 7.07 L* ABG pCO2 32.3 L ABG pO2 150 H ABG HCO3 9 L ABG Total CO2 10 L ABG O2 Saturation 98 ABG Base Excess -21.0 L VBG pH VBG pCO2 VBG pO2 VBG HCO3 VBG Total CO2 VBG O2 Saturation VBG Base Excess FiO2 0.30 Sodium 138 Potassium 2.6 L* Chloride 119 H Carbon Dioxide 10 L BUN 31 H Creatinine 3.50 H Estimated GFR 21.3 L BUN/Creatinine Ratio 8.9 Glucose 274 H Hemoglobin A1c Calcium 11.5 H Phosphorus Magnesium 1.9 Total Bilirubin AST ALT Alkaline Phosphatase Total Protein Albumin Globulin Albumin/Globulin Ratio Procalcitonin Vancomycin Trough Ketones 09/02/19 09/03/19 09/03/19 22:15 04:10 04:10 WBC RBC Hgb Hct MCV MCH MCHC RDW Plt Count Neut % (Auto) Lymph % (Auto) [place] % (Auto) Eos % (Auto) Baso % (Auto) Neut # (Auto) Lymph # (Auto) [place] # (Auto) Eos # (Auto) Baso # (Auto) RBC Morphology Anisocytosis [place] Cells ABG pH ABG pCO2 ABG pO2 ABG HCO3 ABG Total CO2 ABG O2 Saturation ABG Base Excess VBG pH VBG pCO2 VBG pO2 VBG HCO3 VBG Total CO2 VBG O2 Saturation VBG Base Excess FiO2 Sodium Potassium Chloride Carbon Dioxide BUN Creatinine Estimated GFR BUN/Creatinine Ratio Glucose Hemoglobin A1c 12.5 H Calcium Phosphorus 1.0 L* Magnesium Total Bilirubin AST ALT Alkaline Phosphatase Total Protein Albumin Globulin Albumin/Globulin Ratio Procalcitonin Vancomycin Trough Ketones 0.31 H 09/03/19 09/03/19 09/03/19 04:10 04:10 04:10 WBC 14.2 H RBC 4.61 Hgb 13.2 L Hct 39.7 L MCV 86.1 MCH 28.7 MCHC 33.3 RDW 21.3 H Plt Count 217 Neut % (Auto) 82.1 H Lymph % (Auto) 5.4 L [place] % (Auto) 12.1 Eos % (Auto) 0.2 L Baso % (Auto) 0.2 Neut # (Auto) 87168 H Lymph # (Auto) 800 L [place] # (Auto) 1700 H Eos # (Auto) 0 Baso # (Auto) 0 RBC Morphology See below Anisocytosis 2+ H [place] Cells 1+ H ABG pH ABG pCO2 ABG pO2 ABG HCO3 ABG Total CO2 ABG O2 Saturation ABG Base Excess VBG pH VBG pCO2 VBG pO2 VBG HCO3 VBG Total CO2 VBG O2 Saturation VBG Base Excess FiO2 Sodium 140 Potassium 2.6 L* Chloride 120 H Carbon Dioxide 11 L BUN 34 H Creatinine 3.80 H Estimated GFR 19.4 L BUN/Creatinine Ratio 8.9 Glucose 256 H Hemoglobin A1c Calcium 11.3 H Phosphorus 1.0 L* Magnesium Total Bilirubin 0.6 AST 32 ALT 15 Alkaline Phosphatase 155 H Total Protein 6.4 Albumin 2.5 L Globulin 3.9 Albumin/Globulin Ratio 0.6 L Procalcitonin 1.16 H Vancomycin Trough Ketones 09/03/19 09/03/19 09/03/19 08:35 10:28 11:59 WBC RBC Hgb Hct MCV MCH MCHC RDW Plt Count Neut % (Auto) Lymph % (Auto) [place] % (Auto) Eos % (Auto) Baso % (Auto) Neut # (Auto) Lymph # (Auto) [place] # (Auto) Eos # (Auto) Baso # (Auto) RBC Morphology Anisocytosis [place] Cells ABG pH 7.10 L* ABG pCO2 26.1 L ABG pO2 91 ABG HCO3 8 L ABG Total CO2 9 L ABG O2 Saturation 93 L ABG Base Excess -22.0 L VBG pH VBG pCO2 VBG pO2 VBG HCO3 VBG Total CO2 VBG O2 Saturation VBG Base Excess FiO2 21 Sodium 142 Potassium 2.8 L Chloride 122 H* Carbon Dioxide 9 L* BUN 35 H Creatinine 4.00 H Estimated GFR 18.2 L BUN/Creatinine Ratio 8.8 Glucose 218 H Hemoglobin A1c Calcium 11.3 H Phosphorus Magnesium Total Bilirubin 0.6 AST 55 ALT 17 Alkaline Phosphatase 154 H Total Protein 6.3 Albumin 2.4 L Globulin 3.9 Albumin/Globulin Ratio 0.6 L Procalcitonin Vancomycin Trough 32.6 H* Ketones Assessment & Plan Assessment & Plan narrative: Patient is a 24-year-old male with recently diagnosed diabetes admitted to ICU with DKA, acute pancreatitis, acute kidney injury, multiple draining skin abscesses and sepsis. 1. Acute severe metabolic acidosis, present on admission -he had initial anion gap acidosis with elevated ketones and hyperglycemia consistent with diabetic ketoacidosis, anion gap resolved with insulin drip and hydration, but patient with worsening non-anion gap acidemia over subsequent 24 hours due to progressive renal failure and hyperchloremic metabolic acidosis, received bolus of sodium bicarbonate 150 mEq late in the day on 09/02/2019, followed by D5 with 50 mEq sodium bicarbonates continuous drip at 150 cc/hour, with this is pH is slowly improving, with most recent ABG pH 7.10, pCO2 26, PO2 93 with HC03 8, versus pH 6.99 on VBG previous evening, most recent HC03 10 on 1:00 p.m. blood draw -in addition he had worsening respiratory compensation with pCO2 rising from 16 to 33, and therefore started on BiPAP -patient with lowering of respiratory rate from 35-40 to 20-25 with initiation of BiPAP and improvement of metabolic acidosis -hemoglobin A1c 12.5, patient diagnosed with diabetes on hospital admission on 06/14/2019 with non ketotic, non acidotic hyperglycemia. -patient with multiple etiology for DKA including multiple skin abscesses, pancreatitis and running out of Lantus. -continue insulin drip with glucose goal 200-250, serial CBG q.1 hour -change continue IV to D5 with 100 mEq sodium bicarbonate at 150 cc/hour -continue serial chemistries including BMP, magnesium, phosphate every 4 hours until stable -continue IV potassium replacement for low K, KCl can be given at 20 meq per hour via central line PICC -ordered venous blood gas around 6 p.m. 2. Acute pancreatitis, present on admission -etiology possibly drug related from metformin started in June last year, patient was on high dose of 3000 mg daily -patient with left upper quadrant and epigastric abdominal pain described as dull, aching and occasionally sharp worsening over 3 days. -CT exam finds pancreas enlarged with surrounding inflammation, no abscess, pseudocyst or necrosis noted, gallbladder and ducts are normal in appearance. -initial labs with leukocytosis 17.2, lipase elevated at 19,398 -WBC trending down -patient is NPO -continue volume resuscitation 3. Multiple skin abscesses with purulent drainage, present on admission, active -patient with multiple skin lesions with open wounds, draining wounds and abscesses. -purulent material expressed and cultured, growing Staph aureus and group B strep -blood cultures remain negative -treated with Zosyn and vancomycin which were discontinued on 09/03/2019 due to renal failure and elevated vancomycin trough of 35 -consult general surgery for evaluation of additional I and D abscess once patient is more clinically stable. -wound care-clean open wounds twice daily with soap and water and cover with dressing. -patient is placed on contact isolation pending final staff susceptibility. 4. Sepsis, acute, present on admission, active -possible sources multiple skin abscesses with concern of primary or secondary bacteremia -patient with initial leukocytosis of 17.2, with organ dysfunction including tachycardia at 129, respirations are elevated 45 this is related to severe metabolic acidosis secondary DKA, acute kidney injury with elevated creatinine at 1.4 and altered mental status with GCS of 10, subsequent WBC 20 K with severe bandemia, but last WBC 14k with no bandemia is clearly trending down -procalcitonin has also been trending down indicating control of systemic infection -as noted blood cultures are negative and wound culture growing Staph aureus and group B strep -discontinued vancomycin and Zosyn due to acute renal failure and severely elevated vancomycin trough level -reassess additional antibiotics tomorrow a.m. upon review of final Staph aureus sensitivities 5. Acute tubular necrosis, present on admission, active. -current creatinine 4.2 steadily climbing, patient has been oliguric, but has improved urine output 60 cc/hour over the past several hours -his admission CT was without contrast -patient with no prior renal disease presents with creatinine initially elevated at 1.4 with baseline of 0.8. -avoid renal toxic medications, and renal dose medications as needed. -holding lisinopril given for hypertension -monitor renal function closely 6. Acute metabolic encephalopathy, present on admission -etiology secondary to severe acidosis with DKA and sepsis -treat underlying causes 7. Multiple electrolyte disturbances, present on admission -continue IV potassium replacement -monitor elevated calcium 11 point and low phosphorus 1.0, I hesitate giving phosphate replacement due to potential worsening of his acute renal failure 8. Severe obesity -BMI 46 9. DVT prophylaxis -Lovenox 40 mg subcu daily 10. Sedation/pain management, active -use lorazepam 1 mg as needed for tolerance of BiPAP, patient seems to respond well to lorazepam -use hydromorphone 0.5 to 1 mg as needed for pain management Patient is critically ill and being managed in ICU. His prognosis is guarded but he is showing some improvement in acidosis, control of infection, and urine output. Total critical care management up to 60 minutes during course of today's encounters. Patient's mom is DPOA and has been updated on his status and our treatment plan. Total critical care management of about 1 hour during course of today's encounters.
[2019-09-03 13:53] LABS: Alanine Aminotransferase 19 IU/L (<50); Albumin 2.2 g/dL (3.5-5.0); Albumin Globulin Ratio 0.6 (1.0-2.8); Alkaline Phosphatase 153 U/L (38-126); Aspartate Aminotransferase 65 IU/L (17-59); BUN Creatinine Ratio 8.8 (6-22); Bilirubin Total 0.7 mg/dL (0.2-1.3); Blood Urea Nitrogen 37 mg/dL (9-20); Calcium 11.4 mg/dL (8.4-10.2); Carbon Dioxide 10 mmol/L (22-32); Estimated Glomerular Filt Rate 17.2 mL/min (>60); Globulin 3.8 g/dL (1.7-4.1); Glucose 138 mg/dL (70-100); HEMOLYSIS 18 (0-50); Sodium 144 mmol/L (137-145)
[2019-09-03 13:56] LABS: Chloride 124 mmol/L (98-107)
[2019-09-03] MEDS: VANCOMYCIN TROUGH 1 REQUEST MISC (14:30)
[2019-09-03] MEDS: ENOXAPARIN 40 MG/0.4 ML SYRINGE SUBCUT (14:39)
[2019-09-03 16:13] LABS: Phosphorous 1.2 mg/dL (2.5-4.5)
[2019-09-03 17:05] LABS: Lipase 3999 U/L (23-300)
[2019-09-03 18:10] LABS: HCO3 VBG 9 mmol/L (23-28); PCO2 VBG 29.8 mmHg (45-50); PO2 VBG 38 mmHg (35-45); Total CO2 VBG 10 mmol/L (24-29); pH VBG 7.09 (7.33-7.43)
[2019-09-03 18:11] LABS: Oxygen Saturation VBG 53 % (70-75)
--- NOTE | 2019-09-03 18:16 | PM.DS.1 ---
History of Present Illness History of Present Illness Chief complaint: ULQ Pain Narrative: Mr. Kun Samson is a 24-year-old male with no significant prior medical history and on no home medications who presents to the ER for high blood sugar. The patient was seen at the [facility] yesterday for nausea and vomiting at the urging of his mother. The patient has had nausea and vomiting for approximately 10 days during which time he thought he was getting better but relapsed over the last few days. He went to the clinic yesterday and had labs drawn and was notified that his blood sugar was 700 and that he needed to go to the emergency room today. The patient does acknowledge frequent urination and excessive thirst and hunger. He has had no other complaints recent illness and denies fevers or chills has had no headaches or dizziness, nasal congestion or sore throat. He denies chest pain or palpitations and has no shortness of breath cough or wheezing. He denies abdominal pain or heartburn and has nausea vomiting as discussed above. He reports no changes in bowel habits and acknowledges frequent urination without hematuria urgency or burning. Arrival to the ER the patient has a temperature of 97.8?, heart rate of 86, blood pressure 154/84, respirations 16 saturating 97% on room air. A VBG is drawn which demonstrates a pH of 7.35, PO2 of 40.4, pCO2 of 23, bicarb of 22 a base excess of -4. Chest x-ray of stained which shows poor of 77 and hypochromic with an MCH of 25.9. Chemistries he has a sodium of 134, potassium of 3.3, a BUN of 10 with creatinine 0.8 and a blood sugar of 449. On urinalysis he is positive for protein urea as a protein creatinine ratio of 0.67. Procalcitonin is less than 0.05. Ketones are 6.5. The patient is given 10 units of insulin in the emergency department and a 1 L normal saline bolus. Patient is admitted to the medicine service for new onset diabetes. Discharge Providers Provider Date of admission: 09/01/19 20:47 Discharge Date: 09/03/19 Primary care physician: Arik Coles PA-C Consults: 09/01/19 21:10 Consult to Dietitian, Adult Routine Comment: Reason For Exam: New DM dx in 06/2019, DKA Consult to Discharge Planning Routine Comment: Consult to MILITARY TECHNOLOGY MANAGER - Press Technician Routine Comment: 09/01/19 21:34 Consult to Dietitian, Adult Routine Comment: Reason For Exam: Obesity 09/01/19 21:43 Consult to Dietitian, Adult Routine Comment: Reason For Exam: newly diagnosed diabetes, pancreatitis Discharge provider: Ruel Gaitan MD Summary Hospital Course Discharge Diagnosis: 1. Acute severe metabolic acidosis 2. Acute diabetic ketoacidosis 3. Acute pancreatitis, possibly drug toxicity secondary to metformin 3. Multiple draining skin abscesses, wound culture positive for Staph aureus and group B strep 4. Severe sepsis 5. Acute tubular necrosis 6. Acute metabolic encephalopathy 7. Persistent acute hypokalemia 8. Acute hypercalcemia and hypophosphatemia Hospital Course: Patient is a 24-year-old male with recently diagnosed diabetes admitted on 09/01/2019 with DKA, acute pancreatitis, acute kidney injury, multiple draining skin abscesses and sepsis. Hospital course has been summarized by phone conversation with Dr. Hidalgo who is intensive care accepting physician at [facility] in [place]. During course of afternoon, patient's condition further declined with dropping BP to 90 systolic, worsening acidosis with venous pH 7.0 (verses 7.1 earlier), declining urine output 15-20 cc/hour versus had picked up earlier in the day. I also became concerned about patient maintaining adequate ventilation on BiPAP in light of severe acidosis and elected to have patient intubated which was done at 6:35 p.m.. Intubation was uneventful. At this point, patient is better served with transfer to tertiary care hospital as he might need dialysis to reverse the acidosis. Also he may start running into volume problems with all the IV fluids and lack of urine output which would be addressed with dialysis. His weight is up about 16 kg from admission. His cumulative total intake is 1.7 L and his cumulative output is 2300 mL since this admission. I am also concerned about his drop in blood pressure which may indicate a worsening systemic inflammatory response. Patient's medical diagnoses and treatment plan as follows copied from note earlier in the day: 1. Acute severe metabolic acidosis, present on admission -he had initial anion gap acidosis with elevated ketones and hyperglycemia consistent with diabetic ketoacidosis, anion gap resolved with insulin drip and hydration, but patient with worsening non-anion gap acidemia over subsequent 24 hours due to progressive renal failure and hyperchloremic metabolic acidosis, received bolus of sodium bicarbonate 150 mEq late in the day on 09/02/2019, followed by D5 with 50 mEq sodium bicarbonates continuous drip at 150 cc/hour, with this is pH is slowly improving, with most recent ABG pH 7.10, pCO2 26, PO2 93 with HC03 8, versus pH 6.99 on VBG previous evening, most recent HC03 10 on 1:00 p.m. blood draw -in addition he had worsening respiratory compensation with pCO2 rising from 16 to 33, and therefore started on BiPAP -patient with lowering of respiratory rate from 35-40 to 20-25 with initiation of BiPAP and improvement of metabolic acidosis -hemoglobin A1c 12.5, patient diagnosed with diabetes on hospital admission on 06/14/2019 with non ketotic, non acidotic hyperglycemia. -patient with multiple etiology for DKA including multiple skin abscesses, pancreatitis and running out of Lantus. -continue insulin drip with glucose goal 200-250, serial CBG q.1 hour -change continuous IV to D5 with 100 mEq sodium bicarbonate at 150 cc/hour -continue serial chemistries including BMP, magnesium, phosphate every 4 hours until stable -continue IV potassium replacement for low K, KCl can be given at 20 meq per hour via central line PICC -ordered venous blood gas around 6 p.m. 2. Acute pancreatitis, present on admission -etiology possibly drug related from metformin started in June last year, patient was on high dose of 3000 mg daily -patient with left upper quadrant and epigastric abdominal pain described as dull, aching and occasionally sharp worsening over 3 days. -CT exam finds pancreas enlarged with surrounding inflammation, no abscess, pseudocyst or necrosis noted, gallbladder and ducts are normal in appearance. -initial labs with leukocytosis 17.2, lipase elevated at 19,398 -WBC trending down -patient is NPO -continue volume resuscitation 3. Multiple skin abscesses with purulent drainage, present on admission, active -patient with multiple skin lesions with open wounds, draining wounds and abscesses. -purulent material expressed and cultured, growing Staph aureus and group B strep -blood cultures remain negative -treated with Zosyn and vancomycin which were discontinued on 09/03/2019 due to renal failure and elevated vancomycin trough of 35 -consult general surgery for evaluation of additional I and D abscess once patient is more clinically stable. -wound care-clean open wounds twice daily with soap and water and cover with dressing. -patient is placed on contact isolation pending final staff susceptibility. 4. Sepsis, acute, present on admission, active -possible sources multiple skin abscesses with concern of primary or secondary bacteremia -patient with initial leukocytosis of 17.2, with organ dysfunction including tachycardia at 129, respirations are elevated 45 this is related to severe metabolic acidosis secondary DKA, acute kidney injury with elevated creatinine at 1.4 and altered mental status with GCS of 10, subsequent WBC 20 K with severe bandemia, but last WBC 14k with no bandemia is clearly trending down -procalcitonin has also been trending down indicating control of systemic infection -as noted blood cultures are negative and wound culture growing Staph aureus and group B strep -discontinued vancomycin and Zosyn due to acute renal failure and severely elevated vancomycin trough level -reassess additional antibiotics tomorrow a.m. upon review of final Staph aureus sensitivities 5. Acute tubular necrosis, present on admission, active. -current creatinine 4.2 steadily climbing, patient has been oliguric, but has improved urine output 60 cc/hour over the past several hours -his admission CT was without contrast -patient with no prior renal disease presents with creatinine initially elevated at 1.4 with baseline of 0.8. -avoid renal toxic medications, and renal dose medications as needed. -holding lisinopril given for hypertension -monitor renal function closely 6. Acute metabolic encephalopathy, present on admission -etiology secondary to severe acidosis with DKA and sepsis -treat underlying causes 7. Multiple electrolyte disturbances, present on admission -continue IV potassium replacement -monitor elevated calcium 11 point and low phosphorus 1.0, I hesitate giving phosphate replacement due to potential worsening of his acute renal failure 8. Severe obesity -BMI 46 9. DVT prophylaxis -Lovenox 40 mg subcu daily Time Spent with Patient Time spent: Greater than 30 minutes Exam Vital Signs (past 8 hours): - 09/03/19 10:54 09/03/19 11:00 09/03/19 12:00 Temperature 98.5 F 97.8 F Pulse Rate 122 H 114 H Respiratory Rate 26 H 22 Blood Pressure 142/75 H 119/58 L 109/60 Pulse Oximetry 98 99 09/03/19 13:37 09/03/19 14:00 09/03/19 15:00 Temperature 97.9 F Pulse Rate 123 H 118 H Respiratory Rate 26 H 20 Blood Pressure 110/70 103/52 L 87/47 L Pulse Oximetry 97 09/03/19 15:18 09/03/19 16:00 09/03/19 17:00 Temperature Pulse Rate 121 H 120 H Respiratory Rate Blood Pressure 83/40 L 86/49 L 94/50 L Pulse Oximetry 09/03/19 18:00 Temperature Pulse Rate 118 H Respiratory Rate Blood Pressure 89/51 L Pulse Oximetry Fraction of Inspired Oxygen 21 Oxygen Delivery Method BiPAP Oxygen Flow Rate 30 Objective Labs Result Diagrams: 09/03/19 04:10 09/03/19 13:15 Labs: Laboratory Results - last 24 hr 09/02/19 09/02/19 09/02/19 17:50 17:50 18:02 WBC RBC Hgb Hct MCV MCH MCHC RDW Plt Count Neut % (Auto) Lymph % (Auto) [place] % (Auto) Eos % (Auto) Baso % (Auto) Neut # (Auto) Lymph # (Auto) [place] # (Auto) Eos # (Auto) Baso # (Auto) RBC Morphology Anisocytosis Meredith Cells ABG pH ABG pCO2 ABG pO2 ABG HCO3 ABG Total CO2 ABG O2 Saturation ABG Base Excess VBG pH 6.99 L* VBG pCO2 33.4 L VBG pO2 40 VBG HCO3 8 L VBG Total CO2 9 L VBG O2 Saturation 50 L VBG Base Excess -23.0 L FiO2 Sodium Potassium Chloride Carbon Dioxide BUN Creatinine Estimated GFR BUN/Creatinine Ratio Glucose Hemoglobin A1c Calcium Phosphorus 0.8 L* Magnesium 1.5 L Total Bilirubin AST ALT Alkaline Phosphatase Total Protein Albumin Globulin Albumin/Globulin Ratio Lipase Procalcitonin Vancomycin Trough Ketones 09/02/19 09/02/19 09/02/19 21:33 22:15 22:15 WBC RBC Hgb Hct MCV MCH MCHC RDW Plt Count Neut % (Auto) Lymph % (Auto) [place] % (Auto) Eos % (Auto) Baso % (Auto) Neut # (Auto) Lymph # (Auto) [place] # (Auto) Eos # (Auto) Baso # (Auto) RBC Morphology Anisocytosis Meredith Cells ABG pH 7.07 L* ABG pCO2 32.3 L ABG pO2 150 H ABG HCO3 9 L ABG Total CO2 10 L ABG O2 Saturation 98 ABG Base Excess -21.0 L VBG pH VBG pCO2 VBG pO2 VBG HCO3 VBG Total CO2 VBG O2 Saturation VBG Base Excess FiO2 0.30 Sodium 138 Potassium 2.6 L* Chloride 119 H Carbon Dioxide 10 L BUN 31 H Creatinine 3.50 H Estimated GFR 21.3 L BUN/Creatinine Ratio 8.9 Glucose 274 H Hemoglobin A1c Calcium 11.5 H Phosphorus Magnesium 1.9 Total Bilirubin AST ALT Alkaline Phosphatase Total Protein Albumin Globulin Albumin/Globulin Ratio Lipase Procalcitonin Vancomycin Trough Ketones 09/02/19 09/03/19 09/03/19 22:15 04:10 04:10 WBC RBC Hgb Hct MCV MCH MCHC RDW Plt Count Neut % (Auto) Lymph % (Auto) [place] % (Auto) Eos % (Auto) Baso % (Auto) Neut # (Auto) Lymph # (Auto) [place] # (Auto) Eos # (Auto) Baso # (Auto) RBC Morphology Anisocytosis [place] Cells ABG pH ABG pCO2 ABG pO2 ABG HCO3 ABG Total CO2 ABG O2 Saturation ABG Base Excess VBG pH VBG pCO2 VBG pO2 VBG HCO3 VBG Total CO2 VBG O2 Saturation VBG Base Excess FiO2 Sodium Potassium Chloride Carbon Dioxide BUN Creatinine Estimated GFR BUN/Creatinine Ratio Glucose Hemoglobin A1c 12.5 H Calcium Phosphorus 1.0 L* Magnesium Total Bilirubin AST ALT Alkaline Phosphatase Total Protein Albumin Globulin Albumin/Globulin Ratio Lipase Procalcitonin Vancomycin Trough Ketones 0.31 H 09/03/19 09/03/19 09/03/19 04:10 04:10 04:10 WBC 14.2 H RBC 4.61 Hgb 13.2 L Hct 39.7 L MCV 86.1 MCH 28.7 MCHC 33.3 RDW 21.3 H Plt Count 217 Neut % (Auto) 82.1 H Lymph % (Auto) 5.4 L [place] % (Auto) 12.1 Eos % (Auto) 0.2 L Baso % (Auto) 0.2 Neut # (Auto) 67240 H Lymph # (Auto) 800 L [place] # (Auto) 1700 H Eos # (Auto) 0 Baso # (Auto) 0 RBC Morphology See below Anisocytosis 2+ H Meredith Cells 1+ H ABG pH ABG pCO2 ABG pO2 ABG HCO3 ABG Total CO2 ABG O2 Saturation ABG Base Excess VBG pH VBG pCO2 VBG pO2 VBG HCO3 VBG Total CO2 VBG O2 Saturation VBG Base Excess FiO2 Sodium 140 Potassium 2.6 L* Chloride 120 H Carbon Dioxide 11 L BUN 34 H Creatinine 3.80 H Estimated GFR 19.4 L BUN/Creatinine Ratio 8.9 Glucose 256 H Hemoglobin A1c Calcium 11.3 H Phosphorus 1.0 L* Magnesium Total Bilirubin 0.6 AST 32 ALT 15 Alkaline Phosphatase 155 H Total Protein 6.4 Albumin 2.5 L Globulin 3.9 Albumin/Globulin Ratio 0.6 L Lipase Procalcitonin 1.16 H Vancomycin Trough Ketones 09/03/19 09/03/19 09/03/19 08:35 10:28 11:59 WBC RBC Hgb Hct MCV MCH MCHC RDW Plt Count Neut % (Auto) Lymph % (Auto) [place] % (Auto) Eos % (Auto) Baso % (Auto) Neut # (Auto) Lymph # (Auto) [place] # (Auto) Eos # (Auto) Baso # (Auto) RBC Morphology Anisocytosis Meredith Cells ABG pH 7.10 L* ABG pCO2 26.1 L ABG pO2 91 ABG HCO3 8 L ABG Total CO2 9 L ABG O2 Saturation 93 L ABG Base Excess -22.0 L VBG pH VBG pCO2 VBG pO2 VBG HCO3 VBG Total CO2 VBG O2 Saturation VBG Base Excess FiO2 21 Sodium 142 Potassium 2.8 L Chloride 122 H* Carbon Dioxide 9 L* BUN 35 H Creatinine 4.00 H Estimated GFR 18.2 L BUN/Creatinine Ratio 8.8 Glucose 218 H Hemoglobin A1c Calcium 11.3 H Phosphorus Magnesium Total Bilirubin 0.6 AST 55 ALT 17 Alkaline Phosphatase 154 H Total Protein 6.3 Albumin 2.4 L Globulin 3.9 Albumin/Globulin Ratio 0.6 L Lipase Procalcitonin Vancomycin Trough 32.6 H* Ketones 09/03/19 09/03/19 09/03/19 13:15 13:15 17:00 WBC RBC Hgb Hct MCV MCH MCHC RDW Plt Count Neut % (Auto) Lymph % (Auto) [place] % (Auto) Eos % (Auto) Baso % (Auto) Neut # (Auto) Lymph # (Auto) [place] # (Auto) Eos # (Auto) Baso # (Auto) RBC Morphology Anisocytosis Meredith Cells ABG pH ABG pCO2 ABG pO2 ABG HCO3 ABG Total CO2 ABG O2 Saturation ABG Base Excess VBG pH 7.09 L* VBG pCO2 29.8 L VBG pO2 38 VBG HCO3 9 L VBG Total CO2 10 L VBG O2 Saturation 53 L VBG Base Excess -21.0 L FiO2 Sodium 144 Potassium 3.0 L Chloride 124 H* Carbon Dioxide 10 L BUN 37 H Creatinine 4.20 H Estimated GFR 17.2 L BUN/Creatinine Ratio 8.8 Glucose 138 H Hemoglobin A1c Calcium 11.4 H Phosphorus 1.2 L Magnesium 2.0 Total Bilirubin 0.7 AST 65 H ALT 19 Alkaline Phosphatase 153 H Total Protein 6.0 L Albumin 2.2 L Globulin 3.8 Albumin/Globulin Ratio 0.6 L Lipase 3999 H D Procalcitonin Vancomycin Trough Ketones Discharge Plan Discharge Plan Patient Disposition: [facility] Other facility: [facility] Under care of provider: Dr Hidalgo is accepting physician Discharge comment: wound culture final staph sensitivities pending at time of discharge Discharge orders & Medications Prescriptions: No Action Lantus Solostar U-100 Insulin 100 unit/mL (3 mL) Insulin Pen 20 unit subcut BEDTIME Qty: 15 RF: 3 (DME) blood-glucose meter [Blood Glucose Monitoring] Kit See Rx Instructions .ROUTE .MEDSUPPLY Qty: 1 RF: 0 glucose 4 gram tablet,chewable 4 gram PO Q15M PRN (Reason: hypoglycemia) Qty: 30 RF: 0 lisinopril 10 mg tablet 10 mg PO DAILY RF: 0 metformin 750 mg tablet extended release 24 hr 1,500 mg PO BID RF: 0 Follow up/Referrals: Arik Coles PA-C [Primary Care Provider] - Discharge Data Primary Care Provider: Arik Coles
--- NOTE | 2019-09-03 18:19 | PC.NURSE ---
Addendum entered by Suzette Recoi R.N. 09/03/19 21:32: 2055- Patient transferred to care of [facility] personnel. Patient intubated and sedated for transport. Vitals stable at the time of transport. Heart rate 140's, BP 147/67, respirations 24 on vent. Insulin gtt was discontinued at 2000 glucose 147. Bicarb gtt continued at 150cc, propofol gtt at 10 wilfredo/kg/min. Normal Saline bolus of one liter completed. Uop remains low. Addendum entered by Suzette Recio R.N. 09/03/19 19:12: 1900- Intubated at 1835. Procedure went very smoothly and patient tolerated well. Patient CXR done. Plan to transfer to [facility]. Remains vented at TV600 Fi02 30%, Rate 24, Peep 5. Bicarb gtt at 150cc, NS bolus infusing per order, Propofol at 5mic/kg/min, Insulin gtt currently at 8cc. Update on vitals given to Original Note: 1800- Preparing to intubate patient. Venous gas worse and urine output is dropping. Patient remains on BiPap while we await anestesia to arrive. Family is at bedside and they are aware of plan. Dr. Gaitan arranging for transfer to higher level of care.
[2019-09-03] MEDS: SODIUM CHLORIDE 0.9% 1,000 ML 1000 ML IV (18:30)
--- NOTE | 2019-09-03 18:35 | PM.PROC.1 ---
Procedures Date/Time Date of procedure: 09/03/19 Time of procedure: 18:35 Intubation Time out performed: Yes Sedative: other (Propofol) Mg given: 200 Paralytic: succinylcholine Mg given: 100 Laryngoscope: other (Optical Stylet) ET tube size: 8 ET tube uncuffed: Yes Tube secured depth (cm): 24 Tube secured location: teeth Tube placement confirmation: visualized tube passing through cords, equal breath sounds bilaterally, no breath sounds over epigastrium and confirmation by capnometry Patient tolerated procedure: well and no complications Intubation complications: hypotension (Patient BP dropped to 80/40 after intubation. Patient was given 1000mcg phenylephrine over 10minutes and 20mg ephedrine. BP recovered to 90/60 after pressors given. ICU nurses initiated propofol sedation drip.)
[2019-09-03] MEDS: propofoL 1,000 MG/100 ML VIAL 5.184 MG IV (19:02)
[2019-09-03] MEDS: fentaNYL 100 MCG/2 ML INJ 50 MCG IV (20:15)
[2019-09-03] MEDS: MIDAZOLAM 5 MG/ML VIAL 4 MG IV (20:54)
== END 2019-09-03 21:00 | disposition short-term general hospital (02) | DRG 871 ==
LOC: ED 19:21 → AC 20:47 → ICU 21:05
PROVIDERS: Emergency Medicine; Internal Medicine; Admitting Provider Nurse Practitioner Adult Health; Emergency Provider Emergency Medicine; PCP Physician Assistant; Visit Provider Nurse Practitioner Adult Health
DX: A41.01 Sepsis due to Methicillin susceptible Staphylococcus aureus (principal); K85.90 Acute pancreatitis without necrosis or infection, unspecified; E11.10 Type 2 diabetes mellitus with ketoacidosis without coma; G93.41 Metabolic encephalopathy; N17.0 Acute kidney failure with tubular necrosis; L02.211 Cutaneous abscess of abdominal wall; L02.415 Cutaneous abscess of right lower limb; Z68.42 Body mass index [BMI] 45.0-49.9, adult; E87.4 Mixed disorder of acid-base balance; E87.2 Acidosis; E66.01 Morbid (severe) obesity due to excess calories; I10 Essential (primary) hypertension; E87.6 Hypokalemia; E87.8 Other disorders of electrolyte and fluid balance, not elsewhere classified; A49.01 Methicillin susceptible Staphylococcus aureus infection, unspecified site; B95.1 Streptococcus, group B, as the cause of diseases classified elsewhere; R65.20 Severe sepsis without septic shock; T38.3X6A Underdosing of insulin and oral hypoglycemic [antidiabetic] drugs, initial encounter; T38.3X5A Adverse effect of insulin and oral hypoglycemic [antidiabetic] drugs, initial encounter; E83.52 Hypercalcemia; E83.39 Other disorders of phosphorus metabolism; Z79.4 Long term (current) use of insulin
CPT/HCPCS: 36415; 36569; 36592; 36600; 71045; 74177; 80048; 80053; 80076; 80202; 81001; 82009; 82805; 82947; 82962; 83036; 83605; 83690; 83735; 84100; 84132; 84145; 85025; 87040; 87070; 87075; 87077; 87147; 87186; 87205; 87797; 93005; 94002; 94660; 94762; 94799; 96365; 96366; 96367; 96368; 96375; 99285; J0330; J1170; J1650; J2060; J2250; J2270; J2405; J2543; J2704; J2765; J3010; J3480; J7050; Q9967

== ENCOUNTER 2019-10-07 23:52 | Emergency (ER) | payer MEDICAID, OTHER, SELFPAY ==
[2019-09-01 21:07] VITALS: BMI 46.6
[2019-09-03 18:40] VITALS: PULSE 120; RESP 24; O2SAT 97
[2019-10-08 00:05] VITALS: BP 143/79; PULSE 89; RESP 18; TEMP 36.6; O2SAT 98
[2019-10-08 00:24] LABS: Appearance Urine UA CLOUDY; Bilirubin Urine UA NEGATIVE (NEGATIVE); Color Urine UA YELLOW; Glucose Urine UA NEGATIVE (Negative); Ketones Urine UA TRACE (NEGATIVE); Leukocyte Esterase Urine UA 1+ (NEGATIVE); Nitrite Urine UA POSITIVE (Negative); Occult Blood Urine UA 3+ (Negative); Protein Urine UA 3+ (Negative); Specific Gravity Urine UA 1.025 (1.000-1.035); Urobilinogen Urine UA 0.2 E.U./dL (0.2)
[2019-10-08 00:45] LABS: INR 1.3 (0.9-1.3); Prothrombin Time 14.7 SECONDS (10.1-12.7)
[2019-10-08 00:47] LABS: Bacteria Urine Many (>30); Culture Indicated Urine Specimen Cultured; RBC Urine 30-100/HPF (0-5/HPF); WBC Urine 30-100/HPF (0-5/HPF)
[2019-10-08 00:48] LABS: Add Manual Diff / Slide Review NO; Basophils Absolute Auto 100 /uL (0-100); Basophils Percent Auto 0.8 % (0-2); Eosinophils Absolute Auto 400 /uL (0-450); Hematocrit 31.9 % (41-53); Hemoglobin 10.4 g/dL (13.5-17.5); Lymphocytes Absolute Auto 2300 /uL (1100-4500); Mean Corpuscular HGB Conc 32.7 % (30-36); Mean Corpuscular Hemoglobin 29.2 PG (26-34); Mean Corpuscular Volume 89.3 fL (80-100); Monocytes Absolute Auto 600 /uL (0-900); Monocytes Percent Auto 5.7 % (3-14); Neutrophils Absolute Auto 6800 /uL (1500-7000); Neutrophils Percent Auto 66.5 % (50-75); PTT Partial Thromboplastin Tim 33 SECONDS (26.4-36.2); Platelet Count 396 X10^3/uL (150-400); Red Blood Cell Count 3.57 X10^6/uL (4.5-5.9); Red Cell Distribution Width 17.5 % (11.6-14.8); White Blood Cell Count 10.2 X10^3/uL (4.5-11.0)
[2019-10-08 00:51] LABS: Alanine Aminotransferase 19 IU/L (<50); Albumin 3.5 g/dL (3.5-5.0); Albumin Globulin Ratio 0.8 (1.0-2.8); Alkaline Phosphatase 76 U/L (38-126); Aspartate Aminotransferase 18 IU/L (17-59); Bilirubin Total 0.4 mg/dL (0.2-1.3); Blood Urea Nitrogen 9 mg/dL (9-20); Calcium 8.3 mg/dL (8.4-10.2); Carbon Dioxide 26 mmol/L (22-32); Chloride 108 mmol/L (98-107); Estimated Glomerular Filt Rate > 60.0 mL/min (>60); Globulin 4.3 g/dL (1.7-4.1); Glucose 114 mg/dL (70-100); HEMOLYSIS < 15 (0-50); Lipase 1550 U/L (23-300); Sodium 143 mmol/L (137-145); Total Protein 7.8 g/dL (6.3-8.2)
[2019-10-08 01:51] VITALS: BP 141/81; PULSE 80; RESP 18; O2SAT 98
--- NOTE | 2019-10-08 02:11 | ED_ITS ---
HPI - Abdominal Pain General Chief Complaint: Abdominal Pain Stated Complaint: stomach pain, blood in urine Time Seen by Provider: 10/08/19 02:10 Source: patient and family Mode of arrival: Ambulatory Limitations: no limitations History of Present Illness HPI narrative: The patient presents with epigastric abdominal pain. He has pain in central abdomen, rating to the back. He has no fever. He has no associated nausea vomiting. Pain started this morning. He now has dysuria and urgency. He has no testicular pain, no lower abdominal pain, and no back pain. He was seen here 09/01/2019 with DKA, acute renal failure and pancreatitis. He does not use alcohol. There was no diagnosis of gallstones. With the pain today, he has no fever chills. Lipase well at that time was 3999 with acute inflammatory changes noted in the pancreas on CT. With the complication of acute renal failure, the patient was transferred to [facility], for continue care with specially oversight. There was an attempt at abdominal MRI at that facility, the study was well quality been did suggest a bobbing pseudocyst. As the patient proved he was transferred from [facility] to [facility] in [place]. He was scanned again there due to ongoing epigastric pain, again with suggestion of pseudocyst formation. He was discharged about 8 days ago. He was warned he will experience continued problems with his pancreas. He checks in now with recurrence of pain, as noted above. Related Data Home Medications Medication Instructions Recorded Confirmed lisinopril 10 mg PO DAILY 09/01/19 09/01/19 metformin 1,500 mg PO BID 09/01/19 09/01/19 Previous Rx's Medication Instructions Recorded blood-glucose meter [Blood Glucose #1 each 06/15/19 Monitoring] glucose 4 gram PO Q15M PRN #30 tab 06/15/19 insulin glargine [Lantus Solostar 20 unit SUBCUT BEDTIME #15 ml 06/15/19 U-100 Insulin] Allergies Allergy/AdvReac Type Severity Reaction Status Date / Time No Known Drug Allergies Allergy Unknown Unverified 11/14/17 13:00 Review of Systems Review of Systems ROS Unobtainable: All systems reviewed & are unremarkable except as noted in HPI and below Constitutional Constitutional: Denies chills, Denies fever(s), Denies lethargy and Denies weakness ENT Ears, Nose, Mouth, and Throat: Denies dysphagia, Denies vertigo, Denies dizziness and Denies sore throat Cardiovascular Cardiovascular: Denies chest pain, Denies lightheadedness, Denies palpitations, Denies dyspnea, Denies dyspnea on exertion and Denies orthopnea Respiratory Respiratory: Denies cough, Denies dyspnea, Denies dyspnea on exertion and Denies wheezing Gastrointestinal Gastrointestinal: Reports as per HPI, Reports abdominal pain, Denies dysphagia, Denies diarrhea, Denies nausea and Denies vomiting Genitourinary Genitourinary: Denies penile discharge, Denies testicular pain and Reports urinary urgency Musculoskeletal Musculoskeletal: Denies back pain Integumentary/Breasts Skin/Breast: Denies pruritus, Denies erythema and Denies rash Neurologic Neurologic: Denies confusion, Denies vertigo, Denies dizziness, Denies memory loss and Denies weakness Psychiatric Psychiatric: Denies confusion and Denies memory loss Endocrine Endocrine: Denies palpitations Allergic/Immunologic Allergic/Immunologic: Denies wheezing Patient History Surgical History No pertinent past surgical history (Acute) Family History Father Diabetes mellitus Mother Diabetes mellitus Brother No known problems Sister No known problems Social History household members: family Smoking Status: Never smoker alcohol intake: never Smoking Status: Never smoker alcohol intake frequency: 0-2 drinks per day Substance Use Type: does not use Exam Initial Vital Signs Initial Vital Signs: Vital Signs Temperature 98 F 10/08/19 00:05 Pulse Rate 89 10/08/19 00:05 Respiratory Rate 18 10/08/19 00:05 Blood Pressure 143/79 H 10/08/19 00:05 Pulse Oximetry 98 10/08/19 00:05 Const General: cooperative and well developed Nutritional Appearance: well nourished and overweight [facility] Head: normocephalic and atraumatic Mouth: oral mucosae normal and moist mucous membranes Eyes General: appearance normal, both eyes and all related structures Eyelids: eyelids normal Conjunctivae: conjunctivae normal Sclera: sclerae normal Pupils: PERRL EOM: EOM intact bilaterally Neck Neck: No JVD Resp Effort & Inspection: normal respiratory effort and able to speak in complete sentences Auscultation: clear to auscultation bilaterally, no rales, no rhonchi and no wheezes Cardio Rate: regular rate Rhythm: regular rhythm Heart Sounds: S1 normal, S2 normal, no click, no gallops, no murmurs and no rubs Pulses: normal peripheral pulses GI Inspection: obesity Other: Epigastric pain with mild guarding, no distention rebound. Normal bowel sounds. No palpable masses. Back/Spine/Pelvis Back: No CVA tenderness Skin General: no rashes or lesions noted and No jaundice Neuro General: alert, oriented x3, gait normal and no focal motor deficits Speech: speech normal Extrem General: full ROM, no pedal edema and no calf tenderness Course Course Course Narrative: The patient received IV fluid bolus. He was given IV Rocephin for a urinary infection. Lipase level was elevated. CT reveals ongoing pancreatitis, with pseudocyst formation. The patient was given Dilaudid for pain. I discussed the case with Dr. Vogt, gastroenterology. She felt that the care offered at [facility] had been maximized, she felt consultation with a more capable facility would be appropriate. Dr. Simeon, gastroenterology with [facility] in [place] agreed to see the patient at their facility. Dr. Haynes, hospitalist with [facility] accepted the patient. Orders Ordered: Discontinued Medications Hydromorphone HCl (Dilaudid) 1 mg IV NOW ONE Stop: 10/08/19 02:28 Last Admin: 10/08/19 02:39 Dose: 1 mg Documented by: HERBIE Sodium Chloride (Normal Saline 0.9%) 1,000 mls @ 1,000 mls/hr IV BOLUS ONE Stop: 10/08/19 03:26 Last Infusion: 10/08/19 03:23 Dose: 0 mls/hr Documented by: Admin: 10/08/19 02:38 Dose: 1,000 mls/hr Documented by: HERBIE Ceftriaxone Sodium/Dextrose (Rocephin) 1 gm in 50 mls @ 100 mls/hr IV NOW ONE Stop: 10/08/19 04:29 Last Infusion: 10/08/19 05:04 Dose: 0 mls/hr Documented by: Admin: 10/08/19 04:04 Dose: 100 mls/hr Documented by: HERBIE Vital Signs Vital signs: Vital Signs - 8 hr 10/08/19 00:05 10/08/19 01:51 10/08/19 02:57 Temperature 98 F Pulse Rate 89 80 74 Respiratory Rate 18 18 18 Blood Pressure 143/79 H Blood Pressure [Left Arm] 141/81 H 118/61 Pulse Oximetry 98 98 98 10/08/19 05:04 10/08/19 06:07 Temperature Pulse Rate 72 76 Respiratory Rate 16 16 Blood Pressure Blood Pressure [Left Arm] 132/85 133/83 Pulse Oximetry 94 98 MDM - Abdominal Pain Lab Data Result diagrams: 10/08/19 00:30 10/08/19 00:30 Labs: Lab Results 10/08/19 10/08/19 10/08/19 Range/Units 00:10 00:30 00:30 WBC 10.2 (4.5-11.0) X10^3/uL RBC 3.57 L (4.5-5.9) X10^6/uL Hgb 10.4 L (13.5-17.5) g/dL Hct 31.9 L (41-53) % MCV 89.3 (80-100) fL MCH 29.2 (26-34) PG MCHC 32.7 (30-36) % RDW 17.5 H (11.6-14.8) % Plt Count 396 (150-400) X10^3/uL Neut % (Auto) 66.5 (50-75) % Lymph % (Auto) 23.0 L (25-40) % [place] % (Auto) 5.7 (3-14) % Eos % (Auto) 4.0 (2-4) % Baso % (Auto) 0.8 (0-2) % Neut # (Auto) 6800 (3010-0950) /uL Lymph # (Auto) 2300 (0711-9792) /uL [place] # (Auto) 600 (0-900) /uL Eos # (Auto) 400 (0-450) /uL Baso # (Auto) 100 (0-100) /uL PT 14.7 H (10.1-12.7) SECONDS INR 1.3 (0.9-1.3) APTT 33 (26.4-36.2) SECONDS Sodium (137-145) mmol/L Potassium (3.4-5.1) mmol/L Chloride (98-107) mmol/L Carbon Dioxide (22-32) mmol/L BUN (9-20) mg/dL Creatinine (0.66-1.25) mg/dL Estimated GFR (>60) mL/min BUN/Creatinine Ratio (6-22) Glucose (70-100) mg/dL Calcium (8.4-10.2) mg/dL Total Bilirubin (0.2-1.3) mg/dL AST (17-59) IU/L ALT (<50) IU/L Alkaline Phosphatase (38-126) U/L Total Protein (6.3-8.2) g/dL Albumin (3.5-5.0) g/dL Globulin (1.7-4.1) g/dL Albumin/Globulin Ratio (1.0-2.8) Lipase (23-300) U/L Urine Color Yellow Urine Appearance Cloudy Urine pH 6.0 (4.5-8.0) Ur Specific [place] 1.025 (1.000-1.035) Urine Protein 3+ H (Negative) Urine Glucose (UA) Negative (Negative) g/dL Urine Ketones Trace H (NEGATIVE) Urine Occult Blood 3+ H (Negative) Urine Nitrate Positive (Negative) Urine Bilirubin Negative (NEGATIVE) Urine Urobilinogen 0.2 (0.2) E.U./dL Ur Leukocyte Esterase 1+ H (NEGATIVE) Urine RBC 30-100/hpf H (0-5/HPF) Urine WBC 30-100/hpf H (0-5/HPF) Urine Bacteria Many (>30) H (None) Ur Culture Indicated? Specimen cultured 10/08/19 Range/Units 00:30 WBC (4.5-11.0) X10^3/uL RBC (4.5-5.9) X10^6/uL Hgb (13.5-17.5) g/dL Hct (41-53) % MCV (80-100) fL MCH (26-34) PG MCHC (30-36) % RDW (11.6-14.8) % Plt Count (150-400) X10^3/uL Neut % (Auto) (50-75) % Lymph % (Auto) (25-40) % [place] % (Auto) (3-14) % Eos % (Auto) (2-4) % Baso % (Auto) (0-2) % Neut # (Auto) (2357-3512) /uL Lymph # (Auto) (8837-3027) /uL [place] # (Auto) (0-900) /uL Eos # (Auto) (0-450) /uL Baso # (Auto) (0-100) /uL PT (10.1-12.7) SECONDS INR (0.9-1.3) APTT (26.4-36.2) SECONDS Sodium 143 (137-145) mmol/L Potassium 4.0 (3.4-5.1) mmol/L Chloride 108 H (98-107) mmol/L Carbon Dioxide 26 (22-32) mmol/L BUN 9 (9-20) mg/dL Creatinine 0.90 (0.66-1.25) mg/dL Estimated GFR > 60.0 (>60) mL/min BUN/Creatinine Ratio 10.0 (6-22) Glucose 114 H (70-100) mg/dL Calcium 8.3 L (8.4-10.2) mg/dL Total Bilirubin 0.4 (0.2-1.3) mg/dL AST 18 (17-59) IU/L ALT 19 (<50) IU/L Alkaline Phosphatase 76 (38-126) U/L Total Protein 7.8 (6.3-8.2) g/dL Albumin 3.5 (3.5-5.0) g/dL Globulin 4.3 H (1.7-4.1) g/dL Albumin/Globulin Ratio 0.8 L (1.0-2.8) Lipase 1550 H (23-300) U/L Urine Color Urine Appearance Urine pH (4.5-8.0) Ur Specific [place] (1.000-1.035) Urine Protein (Negative) Urine Glucose (UA) (Negative) g/dL Urine Ketones (NEGATIVE) Urine Occult Blood (Negative) Urine Nitrate (Negative) Urine Bilirubin (NEGATIVE) Urine Urobilinogen (0.2) E.U./dL Ur Leukocyte Esterase (NEGATIVE) Urine RBC (0-5/HPF) Urine WBC (0-5/HPF) Urine Bacteria (None) Ur Culture Indicated? Point of care testing: Point of Care Testing Glucose POC [address] scan - abdomen/pelvis: Radiologist's Impression: Inflammatory findings consistent with pancreatitis. Necrotic changes involving the distal pancreatic body with pseudocyst formation distally. Pseudocyst formation at the pancreatic head. Critical Care Time Critical Care Time Critical Care Time: Yes Total Critical Care Time: 45 Attestation: Care involved initial assessment patient, extensive review of medical records, review of radiology and lab data, and multiple clinical decisions. The patient was informed of his clinical findings. Care included consultation with the accepting physicians. Discharge Plan Departure Patient Disposition: [facility] Clinical Impression: Acute pancreatitis, Pancreatic pseudocyst, Diabetes, Urinary tract infection Discharge Date/Time: 10/08/19 07:59 Prescriptions: No Action Lantus Solostar U-100 Insulin 100 unit/mL (3 mL) Insulin Pen 20 unit subcut BEDTIME Qty: 15 RF: 3 (DME) blood-glucose meter [Blood Glucose Monitoring] Kit See Rx Instructions .ROUTE .MEDSUPPLY Qty: 1 RF: 0 glucose 4 gram tablet,chewable 4 gram PO Q15M PRN (Reason: hypoglycemia) Qty: 30 RF: 0 lisinopril 10 mg tablet 10 mg PO DAILY RF: 0 metformin 750 mg tablet extended release 24 hr 1,500 mg PO BID RF: 0 Referrals: Arik Coles PA-C [Primary Care Provider] -
--- NOTE | 2019-10-08 02:27 | DI.CT.S_ITS ---
PROCEDURE: CT ABDOMEN PELVIS W CON INDICATIONS: Epigastric pain. Pancreatitis. TECHNIQUE: After the administration of intravenous contrast, 5 mm thick sections acquired from the diaphragm to the symphysis. 5 mm coronal and sagittal reformats were acquired. For radiation dose reduction, the following was used: automated exposure control, adjustment of mA and/or kV according to patient size. COMPARISON: [facility], CT, ABDOMEN/PELVIS WITH CONTRAST, 09/17/2016, 2:39. [facility], CT, CT ABDOMEN PELVIS W CON, 09/01/2019, 14:55. FINDINGS: Image quality: Excellent. ABDOMEN: Lung bases: Small right pleural effusion, increased. Bibasilar atelectasis. Heart size is normal. Solid organs: Liver is normal in size. Hepatic steatosis. Focal fatty infiltration at the falciform ligament. Gallbladder is within normal limits. Biliary system is non dilated. There is increased hypodensity in the pancreatic head, (2/48), and within the pancreatic body and tail, (2/41), compared to CT 09/01/2019. There is moderate peripancreatic inflammatory change with loculated appearing fluid collection adjacent to the tail measuring approximately 6.1 x 3.3 cm (2/45), increased. There is a small amount of free fluid inferior and superior to the spleen. Prominent perigastric lymph nodes are likely reactive. Portal vein and splenic veins appear patent. No pseudoaneurysm identified. Spleen is normal in size and enhancement. No adrenal nodules. Kidneys demonstrate normal size and enhancement, without hydronephrosis. Peritoneum and bowel: Bowel loops demonstrate normal wall thickness and caliber. No free fluid or air. Nodes and vessels: No retroperitoneal or mesenteric adenopathy by size criteria. Aorta and inferior vena cava are normal in size. Miscellaneous: No ventral hernias. PELVIS: Genitourinary: Bladder is mostly decompressed limiting evaluation. Question of debris in the urinary bladder versus bladder wall thickening. Moderate free fluid in the pelvis. Miscellaneous: No inguinal hernias or adenopathy. Bones: No suspicious bony lesions. No vertebral body compression fractures. IMPRESSION: 1. Necrotizing pancreatitis in the head and body/tail. 2. Small to moderate sized areas of walled of necrosis adjacent to the tail the pancreas. 3. Moderate volume of free fluid in the pelvis likely reactive tracking from the abdomen. 4. Small right pleural effusion. This report is concordant with the overnight preliminary interpretation. Dictated by: Santosh Morales M.D. on 10/08/2019 at 8:55 Approved by: Santosh Morales M.D. on 10/08/2019 at 9:10
[2019-10-08] MEDS: SODIUM CHLORIDE 0.9% 1,000 ML 1000 ML IV (02:38)
[2019-10-08] MEDS: HYDROMORPHONE 1 MG INJ IV (02:39)
[2019-10-08 02:57] VITALS: BP 118/61; PULSE 74; RESP 18; O2SAT 98
[2019-10-08] MEDS: CEFTRIAXONE 1 GM/50 ML FROZ.PIGGY IV (04:04)
[2019-10-08 05:04] VITALS: BP 132/85; PULSE 72; RESP 16; O2SAT 94
[2019-10-08 06:07] VITALS: BP 133/83; PULSE 76; RESP 16; O2SAT 98
[2019-10-08 07:57] VITALS: BP 123/71; PULSE 78; RESP 11; O2SAT 100
== END 2019-10-08 07:59 | disposition short-term general hospital (02) ==
PROVIDERS: Emergency Provider Emergency Medicine; PCP Physician Assistant
DX: K85.90 Acute pancreatitis without necrosis or infection, unspecified (principal); K86.3 Pseudocyst of pancreas; E11.9 Type 2 diabetes mellitus without complications; N39.0 Urinary tract infection, site not specified
CPT/HCPCS: 36415; 74177; 80053; 81001; 82962; 83690; 85025; 85610; 85730; 87077; 87086; 87186; 96361; 96365; 96375; 99284; 99291; J1170; Q9967

== ENCOUNTER 2019-12-06 12:28 | Emergency (ER) | payer MEDICAID, OTHER, SELFPAY ==
[2019-09-01 21:07] VITALS: BMI 46.6
[2019-09-03 18:40] VITALS: PULSE 120; RESP 24; O2SAT 97
[2019-12-06 12:33] VITALS: BP 130/83; PULSE 74; RESP 16; TEMP 36.3; O2SAT 100; BMI 50.1
--- NOTE | 2019-12-06 13:11 | ED.ABDPAIN ---
HPI - Abdominal Pain General Chief Complaint: Abdominal Pain Stated Complaint: dx last month [place]/ same issue gall/stone/ dive Time Seen by Provider: 12/06/19 12:43 Source: patient Mode of arrival: Ambulatory Limitations: no limitations History of Present Illness HPI narrative: Patient complains of 1 week of epigastric nonradiating abdominal pain. No nausea vomiting diarrhea. Denies alcohol or drug use. Patient had extensive hospital stay and visits in the month of October 2019. Seen at [facility] for possibly gallstone pancreatitis without any surgical intervention. Was transferred to [facility] for rehabilitation. He returned to this department and CT scan and laboratory studies were done. He was then transferred to [facility] in [place] for further care. Has been doing well for the month of November until 1 week ago symptoms returned. Patient states he did have MRI done at [facility]. Never had any surgical intervention for pseudocyst of the pancreas Related Data Home Medications Medication Instructions Recorded Confirmed lisinopril 10 mg PO DAILY 09/01/19 09/01/19 metformin 1,500 mg PO BID 09/01/19 09/01/19 Previous Rx's Medication Instructions Recorded blood-glucose meter [Blood Glucose #1 each 06/15/19 Monitoring] glucose 4 gram PO Q15M PRN #30 tab 06/15/19 insulin glargine [Lantus Solostar 20 unit SUBCUT BEDTIME #15 ml 06/15/19 U-100 Insulin] Allergies Allergy/AdvReac Type Severity Reaction Status Date / Time No Known Drug Allergies Allergy Unknown Verified 12/06/19 12:36 Review of Systems Review of Systems Narrative: GENERAL: Denies chills, fatigue, malaise, fever, sweats. HEENT: Denies sinus pain, ear pain, sore throat, difficulty swallowing, dizziness. RESPIRATORY: Denies dyspnea, cough, wheezing, hemoptysis, sputum. CARDIOVASCULAR: Denies chest pain, palpitations, orthopnea, edema, GASTROINTESTINAL: Denies nausea, vomiting, complaints of epigastric abdominal pain. : Denies dysuria, frequency, incontinence, hematuria, urinary retention. MUSCULOSKELETAL: denies weakness, joint pain, or bony pain SKIN: Denies rash, skin lesions, or other NEUROLOGIC: Denies weakness, headache, numbness, change in speech, confusion, seizures, incoordination. PSYCHIATRIC: No concerning psychosocial issues. 12 point review of systems is negative except for those stated above ROS Unobtainable: All systems reviewed & are unremarkable except as noted in HPI and below Patient History Medical History Acute pancreatitis (Acute) Diabetes mellitus (Inactive) DKA (diabetic ketoacidoses) (Acute) Surgical History No pertinent past surgical history (Acute) Family History Father Diabetes mellitus Mother Diabetes mellitus Brother No known problems Sister No known problems Social History household members: family Smoking Status: Never smoker alcohol intake: never Smoking Status: Never smoker alcohol intake frequency: holidays/special occasions only Substance Use Type: does not use Exam Narrative Exam Narrative: GENERAL: [24] year old patient appears stated age. Well-nourished, well-developed patient, in no distress, not toxic HEAD: Atraumatic. Normocephalic. EYES: Pupils equal round and reactive. Extraocular motions intact. No scleral icterus. No injection or drainage. ENT: Nose without bleeding, purulent drainage. Throat without erythema, tonsillar hypertrophy or exudate. Airway patent. NECK: Trachea midline. Non tender CARDIOVASCULAR: Regular rate and rhythm without murmurs, gallops, or rubs. RESPIRATORY: Clear to auscultation. Breath sounds equal bilaterally. No wheezes, rales, or rhonchi. GASTROINTESTINAL: Abdomen soft, mild epigastric tenderness, no rebound tenderness, no peritoneal signs EXTREMITIES: No edema or joint tenderness. BACK: Nontender without deformity or crepitance. No flank tenderness. NEURO: AOx3. SKIN: No rash or erythema of visible areas Initial Vital Signs Initial Vital Signs: Vital Signs Temperature 97.4 F L 12/06/19 12:33 Pulse Rate 74 12/06/19 12:33 Respiratory Rate 16 12/06/19 12:33 Blood Pressure 130/83 12/06/19 12:33 Pulse Oximetry 100 12/06/19 12:33 Course Orders Ordered: ED Orders 12/06/19 13:10 Complete Blood Count AUTO DIFF Stat Comprehensive Metabolic Panel Stat Lipase Stat 12/06/19 13:11 CT abdomen pelvis w con Stat Discontinued Medications Hydromorphone HCl (Dilaudid) 1 mg IV Q15MIN PRN PRN Reason: Pain, Severe (7-10) Last Admin: 12/06/19 17:14 Dose: 1 mg Documented by: Admin: 12/06/19 13:41 Dose: 1 mg Documented by: DARREN Sodium Chloride (Normal Saline 0.9%) 1,000 mls @ 1,000 mls/hr IV BOLUS ONE Stop: 12/06/19 14:08 Last Infusion: 12/06/19 15:46 Dose: 0 mls/hr Documented by: Admin: 12/06/19 13:41 Dose: 1,000 mls/hr Documented by: DARREN Ondansetron HCl (Zofran) 4 mg IV NOW ONE Stop: 12/06/19 13:10 Last Admin: 12/06/19 13:41 Dose: 4 mg Documented by: DARREN Consultations Consultation #1: Time 4:51 p.m., spoke with the [facility] Dr. Nolasco, admit to hospitalist and they will likely drain the pseudocyst on Sunday. Consultation #2: Time 5:21 p.m. spoke with [facility] hospitalist Dr. Walsh, he will accept patient Vital Signs Vital signs: Vital Signs - 8 hr 12/06/19 12:33 12/06/19 13:47 12/06/19 15:11 Temperature 97.4 F L Pulse Rate 74 64 74 Respiratory Rate 16 18 16 Blood Pressure 130/83 Blood Pressure [Left Arm] 127/64 125/66 Pulse Oximetry 100 98 12/06/19 16:30 12/06/19 17:10 Temperature Pulse Rate 72 72 Respiratory Rate 18 Blood Pressure Blood Pressure [Left Arm] 122/58 L 119/69 Pulse Oximetry 98 MDM - Abdominal Pain Differential Diagnosis Differential diagnosis: Likely abdominal pain, acute appendicitis, diverticulitis, pancreatitis and small bowel obstruction Lab Data Result diagrams: 12/06/19 13:10 12/06/19 13:10 Labs: Lab Results 12/06/19 12/06/19 Range/Units 13:10 13:10 WBC 9.6 (4.5-11.0) X10^3/uL RBC 4.58 (4.5-5.9) X10^6/uL Hgb 12.2 L (13.5-17.5) g/dL Hct 37.4 L (41-53) % MCV 81.7 (80-100) fL MCH 26.7 (26-34) PG MCHC 32.7 (30-36) % RDW 14.5 (11.6-14.8) % Plt Count 258 (150-400) X10^3/uL Neut % (Auto) 62.9 (50-75) % Lymph % (Auto) 27.6 (25-40) % [place] % (Auto) 4.7 (3-14) % Eos % (Auto) 3.5 (2-4) % Baso % (Auto) 1.3 (0-2) % Neut # (Auto) 6100 (2078-1664) /uL Lymph # (Auto) 2700 (5357-8677) /uL [place] # (Auto) 400 (0-900) /uL Eos # (Auto) 300 (0-450) /uL Baso # (Auto) 100 (0-100) /uL Sodium 137 (137-145) mmol/L Potassium 4.3 (3.4-5.1) mmol/L Chloride 98 (98-107) mmol/L Carbon Dioxide 30 (22-32) mmol/L BUN 18 (9-20) mg/dL Creatinine 0.76 (0.66-1.25) mg/dL Estimated GFR > 60.0 (>60) mL/min BUN/Creatinine Ratio 23.7 H (6-22) Glucose 406 H (70-100) mg/dL Calcium 9.1 (8.4-10.2) mg/dL Total Bilirubin 0.5 (0.2-1.3) mg/dL AST 15 L (17-59) IU/L ALT 23 (<50) IU/L Alkaline Phosphatase 87 (38-126) U/L Total Protein 8.7 H (6.3-8.2) g/dL Albumin 4.2 (3.5-5.0) g/dL Globulin 4.5 H (1.7-4.1) g/dL Albumin/Globulin Ratio 0.9 L (1.0-2.8) Lipase 717 H (23-300) U/L Imaging Data CT scan - abdomen/pelvis: Radiologist's Impression: [address] [address] [address] Scan Report Signed Patient: Kun Samson JR RMR#: [id number] : 1995Acct:[id number] Age/Sex: 24 / MDate of Service: 12/06/19 Loc: ED Accession Number: [id number] Procedure: CT abdomen pelvis w con Ordering Provider: Arik Singh MD PROCEDURE: CT ABDOMEN PELVIS W CON INDICATIONS: Epigastric pain TECHNIQUE: After the administration of oral and intravenous contrast, 5 mm thick sections acquired from the diaphragms to the symphysis. 5 mm thick coronal and sagittal reformats were performed. For radiation dose reduction, the following was used: automated exposure control, adjustment of mA and/or kV according to patient size. COMPARISON: [facility], CT, CT ABDOMEN PELVIS W CON, 10/08/2019, 2:33. [facility], CT, ABDOMEN/PELVIS WITH CONTRAST, 09/17/2016, 2:39. FINDINGS: Image quality: Diagnostic. ABDOMEN: Lung bases: Lung bases are clear. Heart size is normal. Pancreas: The pancreas demonstrates heterogeneous enhancement along the tail of the pancreas. There has been interval development/increase in size of the loculated fluid collection involving the tail of the pancreas, which measures approximately 13.5 x 13.7 x 9.4 cm (image 32, series 2), previously measuring up to approximately 7.1 x 7.7 x 3.3 cm when remeasured in a similar fashion. An additional small possibly septated fluid collection is identified within the head of the pancreas that measures approximately 3.0 x 1.8 x 2.5 cm (image 42, series 2), previously measuring approximately 3.6 x 2.3 x 2.7 cm when remeasured in a similar configuration. No additional fluid collections are appreciated. No significant dilatation of the main pancreatic duct is evident. There is edema within the mesentery of the upper abdomen, particularly within the lesser sac, adjacent to the pancreas. Other solid organs: The liver is mildly enlarged at 21.5 cm in craniocaudal dimension. Though liver may be slightly hypodense when compared to the spleen. No obvious liver lesions are appreciated. The spleen is mildly enlarged at 14.4 cm in craniocaudal dimension. No definite splenic lesions are appreciated. The adrenals and kidneys are within normal limits. There is no hydronephrosis. Peritoneum and bowel: The stomach is decompressed and subsequently not well evaluated. Mild wall thickening of the stomach is identified through the body and fundal region, which may be reactive to pancreatitis. The small bowel loops are nondilated. Moderate residual stool is identified throughout the colon. The appendix is not definitely seen. No free air is identified. There is no free fluid. Nodes and vessels: No retroperitoneal or mesenteric adenopathy. However, few mildly prominent upper retroperitoneal lymph nodes are identified, which are felt to be reactive and are similar to the prior study. Aorta and inferior vena cava are normal in caliber. Bones: No acute fracture or suspicious osseous lesion is identified. There are mild degenerative changes of the spine. PELVIS: Genitourinary: Bladder wall thickness is normal. The prostate is not enlarged. Miscellaneous: No inguinal hernias or adenopathy. No free fluid or loculated fluid collection is identified. Bones: No suspicious bony lesions. No acute pelvic fractures are evident. IMPRESSION: 1. Prominent interval increase in size of the developing pseudocyst along the body and tail of the pancreas, measuring up to 13 cm. An additional smaller pseudocyst within the region of the head of the pancreas may have slightly decreased in size. 2. Mild edema surrounding the pancreas suggests pancreatitis and clinical correlation is recommended. 3. No bowel obstruction. 4. Mild hepatosplenomegaly. There probably is hepatic steatosis. 5. Possible constipation. 6. Reactive upper retroperitoneal lymph nodes. No cara lymphadenopathy. Dictated by: Néstor Sanchez M.D. on 12/06/2019 at 13:34 Approved by: Néstor Sanchez M.D. on 12/06/2019 at 13:45 MDM Narrative Medical decision making narrative: No fever. Normal white cell count. No antibiotics at this time Discharge Plan Departure Patient Disposition: [facility] Clinical Impression: Acute pancreatitis Qualifiers: Pancreatitis type: unspecified pancreatitis type Acute pancreatitis complication: no infection or necrosis Qualified Code(s): K85.90 - Acute pancreatitis without necrosis or infection, unspecified Prescriptions: No Action Lantus Solostar U-100 Insulin 100 unit/mL (3 mL) Insulin Pen 20 unit subcut BEDTIME Qty: 15 RF: 3 (DME) blood-glucose meter [Blood Glucose Monitoring] Kit See Rx Instructions .ROUTE .MEDSUPPLY Qty: 1 RF: 0 glucose 4 gram tablet,chewable 4 gram PO Q15M PRN (Reason: hypoglycemia) Qty: 30 RF: 0 lisinopril 10 mg tablet 10 mg PO DAILY RF: 0 metformin 750 mg tablet extended release 24 hr 1,500 mg PO BID RF: 0 Referrals: Arik Coles PA-C [Primary Care Provider] -
[2019-12-06 13:28] LABS: Add Manual Diff / Slide Review NO; Basophils Absolute Auto 100 /uL (0-100); Basophils Percent Auto 1.3 % (0-2); Eosinophils Absolute Auto 300 /uL (0-450); Eosinophils Percent Auto 3.5 % (2-4); Hematocrit 37.4 % (41-53); Hemoglobin 12.2 g/dL (13.5-17.5); Lymphocytes Absolute Auto 2700 /uL (1100-4500); Lymphocytes Percent Auto 27.6 % (25-40); Mean Corpuscular HGB Conc 32.7 % (30-36); Mean Corpuscular Hemoglobin 26.7 PG (26-34); Mean Corpuscular Volume 81.7 fL (80-100); Monocytes Absolute Auto 400 /uL (0-900); Monocytes Percent Auto 4.7 % (3-14); Neutrophils Absolute Auto 6100 /uL (1500-7000); Neutrophils Percent Auto 62.9 % (50-75); Platelet Count 258 X10^3/uL (150-400); Red Blood Cell Count 4.58 X10^6/uL (4.5-5.9); Red Cell Distribution Width 14.5 % (11.6-14.8); White Blood Cell Count 9.6 X10^3/uL (4.5-11.0)
[2019-12-06] MEDS: ONDANSETRON 4 MG/2 ML INJ IV (13:41)
[2019-12-06] MEDS: HYDROMORPHONE 1 MG INJ IV ×2 (13:41→17:14)
[2019-12-06] MEDS: SODIUM CHLORIDE 0.9% 1,000 ML 1000 ML IV (13:41)
[2019-12-06 13:42] LABS: Alanine Aminotransferase 23 IU/L (<50); Albumin 4.2 g/dL (3.5-5.0); Albumin Globulin Ratio 0.9 (1.0-2.8); Alkaline Phosphatase 87 U/L (38-126); Aspartate Aminotransferase 15 IU/L (17-59); BUN Creatinine Ratio 23.7 (6-22); Bilirubin Total 0.5 mg/dL (0.2-1.3); Blood Urea Nitrogen 18 mg/dL (9-20); Calcium 9.1 mg/dL (8.4-10.2); Carbon Dioxide 30 mmol/L (22-32); Chloride 98 mmol/L (98-107); Estimated Glomerular Filt Rate > 60.0 mL/min (>60); Globulin 4.5 g/dL (1.7-4.1); Glucose 406 mg/dL (70-100); HEMOLYSIS < 15 (0-50); Lipase 717 U/L (23-300); Potassium 4.3 mmol/L (3.4-5.1); Sodium 137 mmol/L (137-145); Total Protein 8.7 g/dL (6.3-8.2)
[2019-12-06 13:47] VITALS: BP 127/64; PULSE 64; RESP 18; O2SAT 98
[2019-12-06 15:11] VITALS: BP 125/66; PULSE 74; RESP 16
[2019-12-06 16:30] VITALS: BP 122/58; PULSE 72; O2SAT 98
[2019-12-06 17:10] VITALS: BP 119/69; PULSE 72; RESP 18
== END 2019-12-06 18:08 | disposition short-term general hospital (02) ==
PROVIDERS: Emergency Medicine; Emergency Provider Emergency Medicine; PCP Physician Assistant
DX: K85.90 Acute pancreatitis without necrosis or infection, unspecified (principal)
CPT/HCPCS: 36415; 74177; 80053; 83690; 85025; 96361; 96374; 96375; 96376; 99284; 99285; J1170; J2405; Q9967

== ENCOUNTER 2020-01-05 23:34 | Emergency (ER) | payer MEDICAID, OTHER, SELFPAY ==
[2019-09-01 21:07] VITALS: BMI 46.6
[2019-09-03 18:40] VITALS: PULSE 120; RESP 24; O2SAT 97
[2020-01-05 23:40] VITALS: BP 133/89; PULSE 150; RESP 38; TEMP 37; O2SAT 98; BMI 42.2
[2020-01-05 23:44] VITALS: BP 147/107; PULSE 148; RESP 45
--- NOTE | 2020-01-05 23:50 | ED_ITS ---
HPI - General Adult General Chief complaint: Nausea/Vomiting/Diarrhea Stated complaint: nausea, baCk pain, vomiting sob Time Seen by Provider: 01/05/20 23:49 History of Present Illness HPI narrative: 24-year-old gentleman with a history of diabetes, hypertension and complicated pancreatitis with pseudocyst and pseudocyst drain in place presents with severe abdominal pain and vomiting. Symptoms became dramatically worse approximately 36 hours ago. In the last 24 hours he has noticed that his heart is racing. He is not having specific chest pain or dyspnea with this but does note that is going fast and is uncomfortable with this. He states that he typically takes 10 mg of Lantus at night. He has not been checking blood sugars recently as he has been too busy. He has had extensive hospital stays with his 1st bout of pancreatitis starting in August. In and out of hospitals in October with thing stabilizing somewhat in November after [facility] acute care stay and [place] rehabilitation stay. His next exacerbation in early November resulted in hospitalization at [facility] in [place]. By early December things had again and worsened he developed a pseudocyst and from [facility] he was transferred to [facility] with a pseudocyst drain in place in the left upper quadrant draining a very lipophilic serous fluid. His pain is improved when he is sitting forward he is writhing and having difficulty in cooperating with initial evaluation. He states that he is supposed to have another CT scan and a procedure, depending on the scan with either a drain exchange or drain removal, scheduled to happen either 01/05 or 01/06, he doesn't recall the specifics. He was down there on 01/03 for a pre-admit covid test. Related Data Home Medications Medication Instructions Recorded Confirmed lisinopril 10 mg PO DAILY 09/01/19 09/01/19 metformin 1,500 mg PO BID 09/01/19 09/01/19 Previous Rx's Medication Instructions Recorded blood-glucose meter [Blood Glucose #1 each 06/15/19 Monitoring] glucose 4 gram PO Q15M PRN #30 tab 06/15/19 insulin glargine [Lantus Solostar 20 unit SUBCUT BEDTIME #15 ml 06/15/19 U-100 Insulin] Allergies Allergy/AdvReac Type Severity Reaction Status Date / Time No Known Drug Allergies Allergy Unknown Verified 12/06/19 12:36 Review of Systems Review of Systems Narrative: Pertinent positive and negative findings as per HPI Remainder of review of systems is otherwise unremarkable for ENT: No sore throat, neck pain, ear pain CV: Chest pain, dyspnea on exertion Respiratory: Cough, wheeze, dyspnea : Dysuria, hematuria, flank pain MS: Muscle weakness, numbness, joint swelling or warmth Skin: Rashes, nonhealing lesions Neuro: Syncope, dizziness, tingling Psych: Depression, anxiety, suicidal ideation Endocrine: Fatigue, heat or cold intolerance, very dry skin Heme: Easy bruising or bleeding Allergy: Seasonal rhinorrhea, itchy eyes Patient History Medical History Acute pancreatitis (Acute) Diabetes mellitus (Inactive) DKA (diabetic ketoacidoses) (Acute) Pancreatic pseudocyst (Acute) Surgical History No pertinent past surgical history (Acute) Family History Father Diabetes mellitus Mother Diabetes mellitus Brother No known problems Sister No known problems Social History household members: family Smoking Status: Never smoker alcohol intake: never Smoking Status: Never smoker alcohol intake frequency: holidays/special occasions only Substance Use Type: does not use Exam Narrative Exam Narrative: General: Morbidly obese in severe pain able speak in full sentences HEENT: dry mucous membranes, normal sclera with reactive pupils, Neck: No JVD, supple Respiratory: Lungs are clear to auscultation,kusmal breathing,no wheezing no rales no rhonchi. Full and symmetrical air movement Cardiac: Tachycardic with Regular rate and rhythm no murmurs no bruits Abdomen: Soft , tender in the epigastrium into the left upper quadrant with pancreatic pseudocyst drainage site healing well and does not appear infected. Good bowel tones, no flank pain Skin: Warm and dry, no rashes Neurologic: Grossly neurologically intact with no obvious asymmetries or abnormalities Extremities: No trauma, well perfused Psych: Cooperative, appropriate speech fluency Initial Vital Signs Initial Vital Signs: Vital Signs Temperature 98.6 F 01/05/20 23:40 Pulse Rate 150 H 01/05/20 23:40 Respiratory Rate 38 H 01/05/20 23:40 Blood Pressure 133/89 01/05/20 23:40 Pulse Oximetry 98 01/05/20 23:40 Course Orders Ordered: ED Orders 01/05/20 23:53 Blood Culture Stat 01/05/20 23:54 CT abdomen pelvis w con Stat Complete Blood Count AUTO DIFF Stat Comprehensive Metabolic Panel Stat Lactate (Lactic Acid) Stat Lipase Stat EKG-12 Lead Routine 01/06/20 00:05 Ketones (Beta-Hydroxybutyrate) Stat Troponin I Stat 01/06/20 01:21 XR chest 1V Stat 01/06/20 01:47 Venous Blood Gas Stat 01/06/20 03:15 Urinalysis and Microscopic Stat Urine Culture Stat 01/06/20 03:45 Basic Metabolic Panel Stat Lactate (Lactic Acid) Stat Hydromorphone HCl (Dilaudid) 1 mg IV Q30MIN PRN PRN Reason: Pain, Moderate (4-6) Last Admin: 01/06/20 00:01 Dose: 1 mg Documented by: DANTE Sodium Chloride (Normal Saline 0.9%) 1,000 mls @ 150 mls/hr IV CONT PAM Last Infusion: 01/06/20 01:55 Dose: 999 mls/hr Documented by: Infusion: 01/06/20 00:20 Dose: 999 mls/hr Documented by: Admin: 01/06/20 00:00 Dose: 150 mls/hr Documented by: DANTE Piperacillin/Tazobactam/Dextrose (Zosyn) 3.375 gm in 50 mls @ 100 mls/hr IV Q8H PAM Last Infusion: 01/06/20 02:42 Dose: 0 mls/hr Documented by: Admin: 01/06/20 02:15 Dose: 100 mls/hr Documented by: WILLIAM INSULIN DRIP PREMIX (Myxredlin Drip Premix) 100 unit in 100 mls @ 6 mls/hr IV TITRATE PAM; Protocol Last Titration: 01/06/20 05:45 Dose: 11.6 mls/hr Documented by: DANTE Cosigned by: WILLIAM Titration: 01/06/20 05:18 Dose: 11.6 mls /hr, 11.6 mls/hr Documented by: DANTE Cosigned by: WILLIAM Titration: 01/06/20 04:31 Dose: 12 mls /hr, 12 mls/hr Documented by: DANTE Cosigned by: WILLIAM Admin: 01/06/20 02:17 Dose: 6 mls /hr, 6 mls/hr Documented by: WILLIAM Cosigned by: DANTE Potassium Chloride 40 meq/ (Sodium Chloride) 520 mls @ 130 mls/hr IV NOW ONE Stop: 01/06/20 08:20 Last Infusion: 01/06/20 05:45 Dose: 130 mls/hr Documented by: DANTE Cosigned by: WILLIAM Admin: 01/06/20 04:37 Dose: 130 mls/hr Documented by: DANTE Cosigned by: WILLIAM Sodium Chloride (Normal Saline 0.9%) 1,000 mls @ 150 mls/hr IV CONT PAM Last Infusion: 01/06/20 05:15 Dose: 0 mls/hr Documented by: Admin: 01/06/20 04:31 Dose: 150 mls/hr Documented by: DANTE Dextrose/Sodium Chloride (Dextrose 5%-0.45% Ns) 1,000 mls @ 150 mls/hr IV CONT PAM Last Infusion: 01/06/20 05:46 Dose: 150 mls/hr Documented by: Admin: 01/06/20 05:16 Dose: 150 mls/hr Documented by: DANTE Discontinued Medications Vancomycin HCl/Dextrose (Vancomycin) 1,500 mg in 300 mls @ 200 mls/hr IV NOW ONE Stop: 01/06/20 02:45 Last Infusion: 01/06/20 04:30 Dose: 0 mls/hr Documented by: Admin: 01/06/20 02:40 Dose: 200 mls/hr Documented by: DANTE Sodium Chloride (Normal Saline 0.9%) 1,000 mls @ 1,000 mls/hr IV BOLUS ONE Stop: 01/06/20 02:16 Last Infusion: 01/06/20 03:04 Dose: 0 mls/hr Documented by: Admin: 01/06/20 01:59 Dose: 1,000 mls/hr Documented by: DANTE Sodium Chloride (Normal Saline 0.9%) 1,000 mls @ 1,000 mls/hr IV BOLUS ONE Stop: 01/06/20 03:01 Last Infusion: 01/06/20 04:11 Dose: 0 mls/hr Documented by: Admin: 01/06/20 03:05 Dose: 1,000 mls/hr Documented by: WILLIAM Ondansetron HCl (Zofran) 4 mg IV NOW ONE Stop: 01/05/20 23:53 Last Admin: 01/06/20 00:01 Dose: 4 mg Documented by: DANTE Potassium Chloride (Klor-Con M20) 40 meq PO NOW ONE Stop: 01/06/20 02:03 Last Admin: 01/06/20 02:16 Dose: 40 meq Documented by: WILLIAM Potassium Chloride (Klor-Con M20) 40 meq PO NOW ONE Stop: 01/06/20 04:21 Last Admin: 01/06/20 04:31 Dose: 40 meq Documented by: DANTE Vital Signs Vital signs: Vital Signs - 8 hr 01/05/20 23:40 01/06/20 00:31 01/06/20 02:01 Temperature 98.6 F Pulse Rate 150 H 158 H 150 H Respiratory Rate 38 H 32 H 26 H Blood Pressure 133/89 Blood Pressure [Right Arm] 146/104 H 169/86 H Pulse Oximetry 98 99 99 01/06/20 03:00 01/06/20 04:41 01/06/20 05:00 Temperature Pulse Rate 138 H 125 H 126 H Respiratory Rate 36 H 31 H 26 H Blood Pressure Blood Pressure [Right Arm] 168/74 H 141/76 H 136/69 Pulse Oximetry 100 100 100 Medical Decision Making Medical Records Medical records reviewed: Yes I reviewed the patient's medical records. Lab Data Lab results reviewed: Yes I reviewed the patient's lab results. Lab results narrative: Anion gap 26 VBG pH 7.08 (correcting to 7.12 ABG comparison) Positive serum ketones at 7.15 4am anion gap is down to 18, lactate level is decreasing. Potassium continues to decrease will add IV potassium Result diagrams: 01/06/20 00:05 01/06/20 03:45 Labs: Lab Results 01/06/20 01/06/20 01/06/20 Range/Units 00:05 00:05 00:05 WBC 21.1 H (4.5-11.0) X10^3/uL RBC 6.09 H (4.5-5.9) X10^6/uL Hgb 16.1 (13.5-17.5) g/dL Hct 49.1 (41-53) % MCV 80.5 (80-100) fL MCH 26.4 (26-34) PG MCHC 32.8 (30-36) % RDW 15.5 H (11.6-14.8) % Plt Count 324 (150-400) X10^3/uL Neut % (Auto) 90.7 H (50-75) % Lymph % (Auto) 6.3 L (25-40) % [place] % (Auto) 2.6 L (3-14) % Eos % (Auto) 0.1 L (2-4) % Baso % (Auto) 0.3 (0-2) % Neut # (Auto) 76162 H (8102-0745) /uL Lymph # (Auto) 1300 (1200-1352) /uL [place] # (Auto) 500 (0-900) /uL Eos # (Auto) 0 (0-450) /uL Baso # (Auto) 100 (0-100) /uL VBG pH (7.33-7.43) VBG pCO2 (45-50) mmHg VBG pO2 (35-45) mmHg VBG HCO3 (23-28) mmol/L VBG Total CO2 (24-29) mmol/L VBG O2 Saturation (70-75) % VBG Base Excess (0-4) mmol/L Sodium 136 L (137-145) mmol/L Potassium 3.3 L (3.4-5.1) mmol/L Chloride 103 (98-107) mmol/L Carbon Dioxide 7 L* (22-32) mmol/L BUN 9 (9-20) mg/dL Creatinine 1.03 (0.66-1.25) mg/dL Estimated GFR > 60.0 (>60) mL/min BUN/Creatinine Ratio 8.7 (6-22) Glucose 463 H (70-100) mg/dL Lactate 2.3 H (0.7-2.1) mmol/L Calcium 9.8 (8.4-10.2) mg/dL Total Bilirubin 0.5 (0.2-1.3) mg/dL AST 13 L (17-59) IU/L ALT 12 (<50) IU/L Alkaline Phosphatase 127 H (38-126) U/L Troponin I (0.01-0.034) ng/mL Total Protein 10.1 H* (6.3-8.2) g/dL Albumin 4.5 (3.5-5.0) g/dL Globulin 5.6 H (1.7-4.1) g/dL Albumin/Globulin Ratio 0.8 L (1.0-2.8) Lipase 313 H (23-300) U/L Urine Color Urine Appearance Urine pH (4.5-8.0) Ur Specific [place] (1.000-1.035) Urine Protein (Negative) Urine Glucose (UA) (Negative) g/dL Urine Ketones (NEGATIVE) Urine Occult Blood (Negative) Urine Nitrate (Negative) Urine Bilirubin (NEGATIVE) Urine Urobilinogen (0.2) E.U./dL Ur Leukocyte Esterase (NEGATIVE) Urine RBC (0-5/HPF) Urine WBC (0-5/HPF) Ur Squamous Epith Cells (0-5/HPF) Amorphous Sediment Urine Bacteria (None) Granular Casts (None) Urine Yeast (None) Ur Culture Indicated? Ketones (<0.27) mmol/L 01/06/20 01/06/20 01/06/20 Range/Units 00:05 00:05 01:47 WBC (4.5-11.0) X10^3/uL RBC (4.5-5.9) X10^6/uL Hgb (13.5-17.5) g/dL Hct (41-53) % MCV (80-100) fL MCH (26-34) PG MCHC (30-36) % RDW (11.6-14.8) % Plt Count (150-400) X10^3/uL Neut % (Auto) (50-75) % Lymph % (Auto) (25-40) % [place] % (Auto) (3-14) % Eos % (Auto) (2-4) % Baso % (Auto) (0-2) % Neut # (Auto) (0898-2108) /uL Lymph # (Auto) (6145-4295) /uL [place] # (Auto) (0-900) /uL Eos # (Auto) (0-450) /uL Baso # (Auto) (0-100) /uL VBG pH 7.08 L* (7.33-7.43) VBG pCO2 29.3 L (45-50) mmHg VBG pO2 20 L (35-45) mmHg VBG HCO3 9 L (23-28) mmol/L VBG Total CO2 10 L (24-29) mmol/L VBG O2 Saturation 19 L (70-75) % VBG Base Excess -21.0 L (0-4) mmol/L Sodium (137-145) mmol/L Potassium (3.4-5.1) mmol/L Chloride (98-107) mmol/L Carbon Dioxide (22-32) mmol/L BUN (9-20) mg/dL Creatinine (0.66-1.25) mg/dL Estimated GFR (>60) mL/min BUN/Creatinine Ratio (6-22) Glucose (70-100) mg/dL Lactate (0.7-2.1) mmol/L Calcium (8.4-10.2) mg/dL Total Bilirubin (0.2-1.3) mg/dL AST (17-59) IU/L ALT (<50) IU/L Alkaline Phosphatase (38-126) U/L Troponin I < 0.012 (0.01-0.034) ng/mL Total Protein (6.3-8.2) g/dL Albumin (3.5-5.0) g/dL Globulin (1.7-4.1) g/dL Albumin/Globulin Ratio (1.0-2.8) Lipase (23-300) U/L Urine Color Urine Appearance Urine pH (4.5-8.0) Ur Specific [place] (1.000-1.035) Urine Protein (Negative) Urine Glucose (UA) (Negative) g/dL Urine Ketones (NEGATIVE) Urine Occult Blood (Negative) Urine Nitrate (Negative) Urine Bilirubin (NEGATIVE) Urine Urobilinogen (0.2) E.U./dL Ur Leukocyte Esterase (NEGATIVE) Urine RBC (0-5/HPF) Urine WBC (0-5/HPF) Ur Squamous Epith Cells (0-5/HPF) Amorphous Sediment Urine Bacteria (None) Granular Casts (None) Urine Yeast (None) Ur Culture Indicated? Ketones 7.15 H (<0.27) mmol/L 01/06/20 01/06/20 01/06/20 Range/Units 03:15 03:45 03:45 WBC (4.5-11.0) X10^3/uL RBC (4.5-5.9) X10^6/uL Hgb (13.5-17.5) g/dL Hct (41-53) % MCV (80-100) fL MCH (26-34) PG MCHC (30-36) % RDW (11.6-14.8) % Plt Count (150-400) X10^3/uL Neut % (Auto) (50-75) % Lymph % (Auto) (25-40) % [place] % (Auto) (3-14) % Eos % (Auto) (2-4) % Baso % (Auto) (0-2) % Neut # (Auto) (8433-2456) /uL Lymph # (Auto) (7162-3591) /uL [place] # (Auto) (0-900) /uL Eos # (Auto) (0-450) /uL Baso # (Auto) (0-100) /uL VBG pH (7.33-7.43) VBG pCO2 (45-50) mmHg VBG pO2 (35-45) mmHg VBG HCO3 (23-28) mmol/L VBG Total CO2 (24-29) mmol/L VBG O2 Saturation (70-75) % VBG Base Excess (0-4) mmol/L Sodium 136 L (137-145) mmol/L Potassium 3.1 L (3.4-5.1) mmol/L Chloride 109 H (98-107) mmol/L Carbon Dioxide 9 L* (22-32) mmol/L BUN 8 L (9-20) mg/dL Creatinine 0.84 (0.66-1.25) mg/dL Estimated GFR > 60.0 (>60) mL/min BUN/Creatinine Ratio 9.5 (6-22) Glucose 301 H D (70-100) mg/dL Lactate 1.2 (0.7-2.1) mmol/L Calcium 8.8 (8.4-10.2) mg/dL Total Bilirubin (0.2-1.3) mg/dL AST (17-59) IU/L ALT (<50) IU/L Alkaline Phosphatase (38-126) U/L Troponin I (0.01-0.034) ng/mL Total Protein (6.3-8.2) g/dL Albumin (3.5-5.0) g/dL Globulin (1.7-4.1) g/dL Albumin/Globulin Ratio (1.0-2.8) Lipase (23-300) U/L Urine Color Yellow Urine Appearance Slightly cloudy Urine pH 5.0 (4.5-8.0) Ur Specific [place] 1.020 (1.000-1.035) Urine Protein 2+ H (Negative) Urine Glucose (UA) 1+ H (Negative) g/dL Urine Ketones 3+ H (NEGATIVE) Urine Occult Blood 1+ H (Negative) Urine Nitrate Negative (Negative) Urine Bilirubin Negative (NEGATIVE) Urine Urobilinogen 0.2 (0.2) E.U./dL Ur Leukocyte Esterase Negative (NEGATIVE) Urine RBC 0-1/hpf D (0-5/HPF) Urine WBC 0-1/hpf (0-5/HPF) Ur Squamous Epith Cells 0-1 /hpf (0-5/HPF) Amorphous Sediment 2+ Urine Bacteria None seen (None) Granular Casts 1-5/lpf (None) Urine Yeast 1-5/hpf H (None) Ur Culture Indicated? Specimen cultured Ketones (<0.27) mmol/L Point of Care Testing Glucose POC 195 Point of care testing: Point of Care Testing Glucose POC 195 Imaging Data Chest x-ray: Attestation: I personally reviewed and interpreted this imaging study as follows: My Impression: Poor inspiratory effort, normal cardiac silhouette, no pulmonary infiltrates CT scan - abdomen/pelvis: Radiologist's Impression: Previously identified large pancreatic pseudocyst has resolved Peripancreatic edema Bilobed fluid collection in the pancreatic head mildly increased in size Percutaneous drain adjacent to the pancreatic tail Stent from the stomach to the pancreatic tail ECG Data Attestation: I personally reviewed and interpreted this ECG as follows: Interpretation: Most likely sinus tachycardia at a rate of [address] T wave changes MDM Narrative Medical decision making narrative: 1:50 Complicated 24-year-old gentleman with recurrent pancreatitis. Minimal records are available and patient is recollection of his history and course of events is minimally helpful. Unclear whether this was a gallstone pancreatitis or secondary to metformin or both. He has had multiple hospitalizations. Apparently supposed to return to [facility] on either the 2nd or the 3rd for a repeat CT scan of the abdomen and decision to be made regarding pancreatic pseudocyst stent. Was seen at [facility] yesterday for Covid test prior to procedure. Overall clinic presentation is that of severe distress labs continue to provide abnormalities. He is having abdominal pain with 2 small breathing with an anion gap of 26 and the possibility of DKA is considered. Waiting for serum ketones and venous blood gas. In the meantime have initiated fluid resuscitation as well as an insulin drip. White blood cell count is significantly elevated at 21,000 one thousand with significant left shift. With the severe abdominal pain CT scan is repeated (images will be packed sent [facility]) Zosyn and vancomycin are ordered. If he does proved to have DKA this could certainly contributing to the abdominal pain as well. Lactic acid is elevated at 2.3, and began treatment for both infection/sepsis as well as DKA Lipase is continuing to trend down and is down to 313. It is unclear how much actual pancreatic tissue was left to produce lipase to fully comment on the possibility of recurrent pancreatitis He also is in a significant tachycardia in the 145-155 range. He is tolerating this well from a hemodynamic standpoint. I am unsure if this is a simple sinus tach verses an atrial flutter 2:1 -he is not on any beta-blockers or rate limiting cardiac medications to leave the flutter at a lower rate. Troponin is pending. Given current constellation of symptoms and diagnostic uncertainty at this point I am reluctant to try adenosine to determine whether this truly is a sinus tach verses atrial flutter. Given that he was scheduled for a procedure at [facility] within the next 24 hours and he was recently hospitalized there for similar symptoms will work on transferred to [facility] at this time 2:00am VBG returns with a pH of 7.08 strongly suggesting DKA. Still awaiting se rum ketone. Will plan for a full 3 L fluid bolus, oral potassium in light of the initial potassium of only 3.3 and an insulin drip. 2:05 Dr Henry, hospitalist at [facility]. Case is reviewed. Patient is accepted in transfer. Will arrange ALS transport. 415am lactic acid correcting, anion gap is closing, will add IV potassium as well as another oral 40 mEq of potassium with potassium dropping. Serum ketones were positive. Will increase insulin drip and continue with DKA IV insulin pro tocols Critical Care Time Critical Care Time Critical Care Time: Yes Total Critical Care Time: 41 Attestation: Critical care time is separate from other billable procedures. This critical care time includes consultation with family and other consulting doctors, review of records, and interpretation of data from labs, EKGs and imaging as well as managements of cardiac, respiratory, endocrine and infectious disease management. Discharge Plan Departure Prescriptions: No Action Lantus Solostar U-100 Insulin 100 unit/mL (3 mL) Insulin Pen 20 unit subcut BEDTIME Qty: 15 RF: 3 (DME) blood-glucose meter [Blood Glucose Monitoring] Kit See Rx Instructions .ROUTE .MEDSUPPLY Qty: 1 RF: 0 glucose 4 gram tablet,chewable 4 gram PO Q15M PRN (Reason: hypoglycemia) Qty: 30 RF: 0 lisinopril 10 mg tablet 10 mg PO DAILY RF: 0 metformin 750 mg tablet extended release 24 hr 1,500 mg PO BID RF: 0
--- NOTE | 2020-01-05 23:54 | DI.CT.S_ITS ---
PROCEDURE: CT ABDOMEN PELVIS W CON INDICATIONS: presumed complication of pancreatic pseuodcyst (drain in [place] TECHNIQUE: After the administration of intravenous contrast, 5 mm thick sections acquired from the diaphragm to the symphysis. 5 mm coronal and sagittal reformats were acquired. For radiation dose reduction, the following was used: automated exposure control, adjustment of mA and/or kV according to patient size. COMPARISON: [facility], CT, CT ABDOMEN PELVIS W CON, 12/06/2019, 14:01. FINDINGS: Image quality: Excellent. ABDOMEN: Lung bases: Lung bases are clear. Heart size is normal. Solid organs: Liver is normal in size and enhancement. Mild hepatic steatosis. Gallbladder is unremarkable. Biliary system is non dilated. Pancreas enhances normally. As stated below, 2 drains have decompressed a previous large pancreatic pseudocyst involving the body and tail of the pancreas. There is now interval maturation and mild increase in size in 2 small pseudocysts immediately adjacent to each other in the region of the uncinate process and adjacent to the uncinate process. A separate pseudocysts measure approximately 1.8.6 centimeters. Previous measurements were 1.8 and 2.2 cm. There is inflammatory change in the adjacent peripancreatic fat which has the appearance of a slight exacerbation of acute pancreatitis. Spleen is normal in size and enhancement. No adrenal nodules. Kidneys demonstrate normal size and enhancement, without hydronephrosis. Peritoneum and bowel: Bowel loops demonstrate normal wall thickness and caliber. No free fluid or air. There are now [address] in place. One of the drains is a endoscopically placed transgastric pigtail drain into the previous pancreatic body pseudocyst, and the second is a left upper quadrant pigtail drain in the region of the pancreatic tail. A large previous pancreatic body/tail pseudocyst is no longer present. Nodes and vessels: No retroperitoneal or mesenteric adenopathy by size criteria. Aorta and inferior vena cava are normal in size. Miscellaneous: No ventral hernias. PELVIS: Genitourinary: Bladder wall thickness is normal. Miscellaneous: No inguinal hernias or adenopathy. Bones: No suspicious bony lesions. No vertebral body compression fractures. IMPRESSION: 1. There are [address] The previous large pancreatic body/tail pseudocyst is no longer present. 2. Interval maturation and slight increase in small uncinate process pseudocysts. 3. Slight interval increase in inflammatory change in the peripancreatic fat adjacent to the uncinate process and inferior to the uncinate process consistent with possible acute pancreatitis. 4. Hepatic steatosis. Comment: Final report is concordant with preliminary interpretation provided by [facility]. Dictated by: Obey Balderrama M.D. on 01/06/2020 at 8:31 Approved by: Obey Balderrama M.D. on 01/06/2020 at 8:39
[2020-01-06] VITALS (11 sets, daily range): BP systolic 136–177; BP diastolic 67–104; PULSE 125–158; RESP 26–36; O2SAT 99–100
[2020-01-06] MEDS: HYDROMORPHONE 1 MG INJ IV (00:01)
[2020-01-06] MEDS: ONDANSETRON 4 MG/2 ML INJ IV (00:01)
[2020-01-06 00:17] LABS: Add Manual Diff / Slide Review NO; Basophils Absolute Auto 100 /uL (0-100); Basophils Percent Auto 0.3 % (0-2); Eosinophils Absolute Auto 0 /uL (0-450); Eosinophils Percent Auto 0.1 % (2-4); Hematocrit 49.1 % (41-53); Hemoglobin 16.1 g/dL (13.5-17.5); Lymphocytes Absolute Auto 1300 /uL (1100-4500); Lymphocytes Percent Auto 6.3 % (25-40); Mean Corpuscular HGB Conc 32.8 % (30-36); Mean Corpuscular Hemoglobin 26.4 PG (26-34); Mean Corpuscular Volume 80.5 fL (80-100); Monocytes Absolute Auto 500 /uL (0-900); Monocytes Percent Auto 2.6 % (3-14); Neutrophils Absolute Auto 19100 /uL (1500-7000); Neutrophils Percent Auto 90.7 % (50-75); Platelet Count 324 X10^3/uL (150-400); Red Cell Distribution Width 15.5 % (11.6-14.8); White Blood Cell Count 21.1 X10^3/uL (4.5-11.0)
[2020-01-06 00:21] LABS: Red Blood Cell Count 6.09 X10^6/uL (4.5-5.9)
[2020-01-06 00:37] LABS: Alanine Aminotransferase 12 IU/L (<50); Albumin 4.5 g/dL (3.5-5.0); Alkaline Phosphatase 127 U/L (38-126); Aspartate Aminotransferase 13 IU/L (17-59); BUN Creatinine Ratio 8.7 (6-22); Bilirubin Total 0.5 mg/dL (0.2-1.3); Blood Urea Nitrogen 9 mg/dL (9-20); Calcium 9.8 mg/dL (8.4-10.2); Chloride 103 mmol/L (98-107); Estimated Glomerular Filt Rate > 60.0 mL/min (>60); Glucose 463 mg/dL (70-100); HEMOLYSIS < 15 (0-50); Lactate (Lactic Acid) 2.3 mmol/L (0.7-2.1); Lipase 313 U/L (23-300); Potassium 3.3 mmol/L (3.4-5.1); Sodium 136 mmol/L (137-145)
[2020-01-06 00:44] LABS: Albumin Globulin Ratio 0.8 (1.0-2.8); Globulin 5.6 g/dL (1.7-4.1)
[2020-01-06 00:49] LABS: Carbon Dioxide 7 mmol/L (22-32); Total Protein 10.1 g/dL (6.3-8.2)
--- NOTE | 2020-01-06 01:21 | DI.RAD.S_ITS ---
PROCEDURE: XR CHEST 1V INDICATIONS: upper abdominal pain, severe pancreatitis TECHNIQUE: One view of the chest was acquired. COMPARISON: [facility], , XR CHEST 1V, 09/03/2019, 18:37. FINDINGS: Surgical changes and devices: None. Lungs and pleura: Lungs are clear. No pleural effusions or pneumothorax. Stable elevation of the right hemidiaphragm. Mediastinum: Mediastinal contours appear normal. Heart size is normal. Bones and chest wall: No suspicious bony lesions. Overlying soft tissues appear unremarkable. IMPRESSION: No acute cardiopulmonary disease process. Dictated by: Antonieta Guillory MD, PhD on 01/06/2020 at 9:05 Approved by: Antonieta Guillory MD, PhD on 01/06/2020 at 9:06
[2020-01-06 01:34] LABS: Ketones (Beta-Hydroxybutyrate) 7.15 mmol/L (<0.27)
[2020-01-06 01:54] LABS: HCO3 VBG 9 mmol/L (23-28); Oxygen Saturation VBG 19 % (70-75); PCO2 VBG 29.3 mmHg (45-50); PO2 VBG 20 mmHg (35-45); Total CO2 VBG 10 mmol/L (24-29); pH VBG 7.08 (7.33-7.43)
[2020-01-06 01:58] LABS: Troponin I < 0.012 ng/mL (0.01-0.034)
[2020-01-06] MEDS: SODIUM CHLORIDE 0.9% 1,000 ML 1000 ML IV ×2 (01:59→03:05)
[2020-01-06 02:11] LABS: Reflexed Lactate in 2 Hours Y
[2020-01-06] MEDS: PIPERACILLIN-TAZO 3.375 GM/50 ML FROZ.PIGGY IV (02:15)
[2020-01-06] MEDS: POTASSIUM CHLORIDE 20 MEQ TAB 40 MEQ PO ×2 (02:16→04:31)
[2020-01-06] MEDS: INSULIN DRIP PREMIX 100 UNIT/100 ML PLAST..BAG 6 UNIT IV (02:17)
[2020-01-06] MEDS: VANCOMYCIN 1,500 MG/300 ML FROZ.PIGGY 200 MG IV (02:40)
--- NOTE | 2020-01-06 03:10 | PC.NURSE ---
Report called to ZARINA Stokes at . Questions answered.
[2020-01-06 04:07] LABS: BUN Creatinine Ratio 9.5 (6-22); Blood Urea Nitrogen 8 mg/dL (9-20); Calcium 8.8 mg/dL (8.4-10.2); Chloride 109 mmol/L (98-107); Estimated Glomerular Filt Rate > 60.0 mL/min (>60); Glucose 301 mg/dL (70-100); HEMOLYSIS < 15 (0-50); Lactate (Lactic Acid) 1.2 mmol/L (0.7-2.1); Potassium 3.1 mmol/L (3.4-5.1); Sodium 136 mmol/L (137-145)
[2020-01-06 04:10] LABS: Carbon Dioxide 9 mmol/L (22-32)
--- NOTE | 2020-01-06 04:23 | PC.NURSE ---
Insulin gtt increased to 12units/hr per verbal order from Dr Simeon
[2020-01-06] MEDS: SODIUM CHLORIDE 0.9% 1,000 ML 150 ML IV ×2 (04:31)
[2020-01-06] MEDS: POTASSIUM CHLORIDE 40 MEQ in SODIUM CHLORIDE 0.9% 500 ML 130 ML IV (04:37)
[2020-01-06 04:47] LABS: Bacteria Urine None Seen
[2020-01-06 04:48] LABS: Color Urine UA YELLOW; Glucose Urine UA 1+ g/dL (Negative); Ketones Urine UA 3+ (NEGATIVE); Leukocyte Esterase Urine UA NEGATIVE (NEGATIVE); Nitrite Urine UA NEGATIVE (Negative); Occult Blood Urine UA 1+ (Negative); Protein Urine UA 2+ (Negative); Urobilinogen Urine UA 0.2 E.U./dL (0.2)
[2020-01-06 04:51] LABS: Appearance Urine UA Slightly Cloudy; Bilirubin Urine UA Negative (NEGATIVE)
[2020-01-06 04:53] LABS: Amorphous Sediment Urine 2+; RBC Urine 0-1/HPF (0-5/HPF); Squamous Epithelial Cell Urine 0-1 /HPF (0-5/HPF)
[2020-01-06 04:54] LABS: WBC Urine 0-1/HPF (0-5/HPF)
[2020-01-06 04:55] LABS: Granular Casts Urine 1-5/LPF
[2020-01-06 04:56] LABS: Culture Indicated Urine Specimen Cultured
--- NOTE | 2020-01-06 05:11 | PC.NURSE ---
CBG 195, DKA protocol reviewed with Dr Simeon. Verbal orders received for D5 1/2NS @ 150ml/hr. Will decrease insulin gtt to 11.6units/hr (.08units/kg/hr per protocol)
[2020-01-06] MEDS: DEXTROSE 5%-0.45% NS 1,000 ML 150 ML IV (05:16)
--- NOTE | 2020-01-06 05:43 | PC.NURSE ---
Report given and care transferred to Marie, critical care rn transport.
[2020-01-06 19:59] LABS: Listeria monocytogenes Not Detected (Not Detect); Staphylococcus species Not Detected (Not Detect)
[2020-01-06 20:00] LABS: Acinetobacter baumannii Not Detected (Not Detect); E. coli Not Detected (Not Detect); Enterobacteriaceae species Detected (Not Detect); KPC (carbapenem-resist gene) Not Detected (Not Detect); Streptococcus agalactiae (Gr B Not Detected (Not Detect); Streptococcus pneumonia Not Detected (Not Detect); Streptococcus pyogenes (Gr A) Not Detected (Not Detect); Streptococcus species Detected (Not Detect)
[2020-01-06 20:01] LABS: Candida albicans Not Detected (Not Detect); Candida glabrata Not Detected (Not Detect); Candida krusei Not Detected (Not Detect); Candida parapsilosis Not Detected (Not Detect); Candida tropicalis Not Detected (Not Detect); Enterobacter cloacae complex Not Detected (Not Detect); Haemophilus influenzae Not Detected (Not Detect); Neisseria meningitidis Not Detected (Not Detect); Proteus species Detected (Not Detect); Pseudomonas aeruginosa Not Detected (Not Detect); Serratia marcescens Not Detected (Not Detect)
[2020-01-06 20:11] LABS: Enterococcus species Not Detected (Not Detect)
== END 2020-01-06 05:55 | disposition short-term general hospital (02) ==
PROVIDERS: Emergency Provider Emergency Medicine; PCP Physician Assistant
DX: K85.90 Acute pancreatitis without necrosis or infection, unspecified (principal); E11.10 Type 2 diabetes mellitus with ketoacidosis without coma; K86.3 Pseudocyst of pancreas; E87.6 Hypokalemia; I10 Essential (primary) hypertension; E66.01 Morbid (severe) obesity due to excess calories; R00.0 Tachycardia, unspecified; D72.829 Elevated white blood cell count, unspecified; R79.89 Other specified abnormal findings of blood chemistry
CPT/HCPCS: 36415; 71045; 74177; 80048; 80053; 81001; 82009; 82805; 82962; 83605; 83690; 84484; 85025; 87040; 87077; 87086; 87150; 87205; 93005; 93010; 96361; 96365; 96366; 96367; 96368; 96375; 99285; 99291; 99292; J1170; J2405; J2543; J3480; Q9967

== ENCOUNTER 2022-05-19 17:25 | Inpatient (IN) | payer MEDICAID, OTHER, SELFPAY ==
[2019-09-01 21:07] VITALS: BMI 46.6
[2019-09-03 18:40] VITALS: PULSE 120; RESP 24; O2SAT 97
[2022-05-19] VITALS (19 sets, daily range): BP systolic 131–162; BP diastolic 70–82; PULSE 120–132; RESP 18–39; TEMP 36.8–37.3; O2SAT 100; BMI 44.8
--- NOTE | 2022-05-19 18:06 | DI.RAD.S_ITS ---
PROCEDURE: XR ACUTE ABDOMEN SERIES INDICATIONS: DKA vs. sepsis TECHNIQUE: One view chest and two views of the abdomen were acquired. COMPARISON: None. FINDINGS: Surgical changes and devices: None. Chest: Increased pulmonary vascularity is present. Heart size is normal. No pleural effusions. No pneumoperitoneum. Abdomen: Bowel gas pattern is normal. No suspicious calcifications. Visualized solid organ contours appear normal. Bones: No suspicious bony lesions. IMPRESSION: Mild appearance of increased pulmonary vascularity which could represent edema. No bowel obstruction. Dictated by: Rosita Lamb M.D. on 05/19/2022 at 19:14 Approved by: Rosita Lamb M.D. on 05/19/2022 at 19:15
--- NOTE | 2022-05-19 18:09 | ED_ITS ---
HPI - General Adult General Chief complaint: Diabetic Problem Stated complaint: Not feeling well, Vomiting Time Seen by Provider: 05/19/22 18:06 Source: patient Mode of arrival: Ambulatory History of Present Illness HPI narrative: 27-year-old male nonsmoker with history of type 2 diabetes on Humulin both in the morning and evening without any recent regimen changes presents with family in the chief complaint of nausea, vomiting, rapid breathing and generalized abdominal pain over the course of the day. He denies missing any doses of his medications other than this morning and denies any significant dietary indiscretions. He started feeling poorly last night including fatigue, some shortness of breath and mild abdominal pain and presents today under the circumstances listed above. He is had no fever chills. Denies runny nose, sore throat or cough Related Data Home Medications Medication Instructions Recorded Confirmed lisinopril 10 mg tablet 10 mg PO DAILY 09/01/19 09/01/19 metformin 750 mg tablet,extended 1,500 mg PO BID 09/01/19 09/01/19 release 24 hr Previous Rx's Medication Instructions Recorded blood-glucose meter (Blood Glucose #1 ea 06/15/19 Monitoring kit) glucose 4 gram chewable tablet 4 gram PO Q15M PRN hypoglycemia 06/15/19 #30 tabs insulin glargine 100 unit/mL (3 20 unit (0.2 mL) SUBCUT BEDTIME 06/15/19 mL) subcutaneous pen (Lantus #15 mL Solostar U-100 Insulin) Allergies Allergy/AdvReac Type Severity Reaction Status Date / Time No Known Drug Allergies Allergy Unknown Verified 12/06/19 12:36 Review of Systems Review of Systems Narrative: GENERAL: See HPI HEENT: Denies sinus pain, ear pain, sore throat, difficulty swallowing, dizziness. RESPIRATORY: See HPI CARDIOVASCULAR: Denies chest pain, palpitations, orthopnea, edema, GASTROINTESTINAL: See HPI : Denies dysuria, frequency, incontinence, hematuria, urinary retention. MUSCULOSKELETAL: denies weakness, joint pain, or bony pain SKIN: Denies rash, skin lesions, or other NEUROLOGIC: Denies weakness, headache, numbness, change in speech, confusion, seizures, incoordination. PSYCHIATRIC: No concerning psychosocial issues. 12 point review of systems is negative except for those stated above Patient History Medical History Acute pancreatitis Diabetes mellitus DKA (diabetic ketoacidoses) Pancreatic pseudocyst Surgical History No pertinent past surgical history Family History Father Diabetes mellitus Mother Diabetes mellitus Brother No known problems Sister No known problems Social History household members: family Smoking Status: Never smoker alcohol intake: never Smoking Status: Never smoker alcohol intake frequency: holidays/special occasions only Substance Use Type: does not use Exam Narrative Exam Narrative: GENERAL: [27] year old patient appears stated age. Well-developed patient, in moderate distress, ill-appearing, rapid breathing HEAD: Atraumatic. Normocephalic. EYES: Pupils equal round and reactive. Extraocular motions intact. No scleral icterus. No injection or drainage. ENT: Nose without bleeding, purulent drainage. Throat without erythema, tonsillar hypertrophy or exudate. Airway patent. NECK: Trachea midline. Non tender CARDIOVASCULAR: Regular rate and rhythm without murmurs, gallops, or rubs. RESPIRATORY: Clear to auscultation. Breath sounds equal bilaterally. No wheezes, rales, or rhonchi. GASTROINTESTINAL: Abdomen soft, mild generalized tenderness, nondistended. Bowel sounds present in all 4 quadrants EXTREMITIES: No edema or joint tenderness. BACK: Nontender without deformity or crepitance. No flank tenderness. NEURO: AOx3. SKIN: No rash or erythema of visible areas Initial Vital Signs Initial Vital Signs: Vital Signs Temperature 98.3 F 05/19/22 17:31 Pulse Rate 129 H 05/19/22 17:31 Respiratory Rate 18 05/19/22 17:31 Blood Pressure 148/82 H 05/19/22 17:31 Pulse Oximetry 100 05/19/22 17:31 Oxygen Delivery Method 05/19/22 17:31 Course Orders Ordered: ED Orders 05/19/22 17:50 A1C [Hemoglobin A1C% w Est Avg Glu] Stat Complete Blood Count AUTO DIFF Stat Comprehensive Metabolic Panel Stat Ketones (Beta-Hydroxybutyrate) Stat Lipase Stat 05/19/22 17:53 COVID19 -Nasal RAPID/Pre-Proc Stat 05/19/22 17:54 EKG-12 Lead Stat 05/19/22 18:02 Venous Blood Gas Stat 05/19/22 18:06 XR acute abdomen series Stat 05/19/22 18:10 Urine Culture Stat Urine Microscopic Stat 05/19/22 19:33 Blood Culture Stat Acetaminophen (Acetaminophen 325 Mg Tablet) 975 mg PO Q8H PRN PRN Reason: fever/Pain, Mild (1-3) Dextrose (Dextrose 50 % In Water 25 Gm/50 Ml Syringe) 25 gm IV PRN PRN PRN Reason: Hypoglycemia Enoxaparin Sodium (Enoxaparin 40 Mg/0.4 Ml Syringe) 40 mg SUBCUT DAILY [facility] INSULIN DRIP PREMIX (Myxredlin Drip Premix) 100 unit in 100 mls @ 6 mls/hr IV TITRATE PAM; Protocol Last Admin: 05/19/22 19:29 Dose: 6 ml/hr, 6 mls/hr Documented By: GOLDY Co-signed By: CELESTINO Lactated Ringer's (Lactated Ringers) 1,000 mls @ 100 mls/hr IV CONT [facility] Last Infusion: 05/19/22 22:38 Dose: 0 mls/hr Documented By: Admin: 05/19/22 21:26 Dose: 100 mls/hr Documented By: CAT Ceftriaxone Sodium 1,000 mg/ (Sodium Chloride) 100 mls @ 200 mls/hr IV Q24H [facility] Dextrose/Sodium Chloride (Dextrose 5%-0.45% Ns) 1,000 mls @ 100 mls/hr IV CONT [facility] Last Admin: 05/19/22 22:40 Dose: 100 mls/hr Documented By: CAT Insulin Glargine (Insulin Glargine 100 Unit/Ml 3ml Pen) 30 unit SUBCUT BEDTIME PRN PRN Reason: Blood Sugar - High Last Admin: 05/19/22 22:36 Dose: 30 unit Documented By: CAT Co-signed By: JENNY Ketorolac Tromethamine (Ketorolac 30 Mg/Ml Vial) 15 mg IV Q6H PRN PRN Reason: Pain, Moderate (1-10) Stop: 05/22/22 19:59 Lisinopril (Lisinopril 10 Mg Tablet) 10 mg PO DAILY [facility] Last Admin: 05/19/22 22:42 Dose: 10 mg Documented By: CAT Metoprolol Tartrate (Metoprolol Tartrate 5 Mg/5 Ml Inj) 5 mg IV Q10MIN PRN PRN Reason: start 2.5mg Stop: 05/21/22 23:31 Ondansetron HCl (Ondansetron 4 Mg/2 Ml Inj) 4 mg IV Q4HR PRN PRN Reason: Nausea And Vomiting Tramadol HCl (Tramadol 50 Mg Tablet) 50 mg PO Q4H PRN PRN Reason: Pain, Moderate (1-10) Discontinued Medications Sodium Chloride (Normal Saline 0.9%) 1,000 mls @ 1,000 mls/hr IV BOLUS ONE Stop: 05/19/22 18:50 Last Admin: 05/19/22 18:19 Dose: Not Given Documented By: GOLDY Lactated Ringer's (Lactated Ringers) 1,000 mls @ 1,000 mls/hr IV BOLUS ONE Stop: 05/19/22 19:05 Last Infusion: 05/19/22 20:13 Dose: 0 mls/hr Documented By: Admin: 05/19/22 18:23 Dose: 1,000 mls/hr Documented By: GOLDY Ceftriaxone Sodium 2,000 mg/ (Sodium Chloride) 100 mls @ 200 mls/hr IV NOW ONE Stop: 05/19/22 19:48 Last Infusion: 05/19/22 21:03 Dose: 0 mls/hr Documented By: Admin: 05/19/22 20:12 Dose: 200 mls/hr Documented By: CELESTINO POTASSIUM CHLORIDE IN WATER (Potassium Cl 10 Meq/100 Ml Della) 10 meq in 100 mls @ 100 mls/hr IV Q1H PAM Stop: 05/20/22 00:14 Last Admin: 05/20/22 00:17 Dose: 75 mls/hr Documented By: Infusion: 05/19/22 23:40 Dose: 100 mls/hr Documented By: Admin: 05/19/22 22:40 Dose: 100 mls/hr Documented By: Infusion: 05/19/22 22:27 Dose: 75 mls/hr Documented By: Admin: 05/19/22 21:27 Dose: 100 mls/hr Documented By: CAT Ketorolac Tromethamine (Ketorolac 30 Mg/Ml Vial) 15 mg IV NOW ONE Stop: 05/19/22 18:56 Last Admin: 05/19/22 19:23 Dose: 15 mg Documented By: GOLDY Lorazepam (Lorazepam 2 Mg/Ml Inj) 1 mg IV NOW ONE Stop: 05/19/22 23:21 Ondansetron HCl (Ondansetron 4 Mg/2 Ml Inj) 4 mg IV NOW ONE Stop: 05/19/22 17:52 Last Admin: 05/19/22 18:23 Dose: 4 mg Documented By: GOLDY Vital Signs Vital signs: Vital Signs - 8 hr 05/19/22 17:31 05/19/22 18:12 05/19/22 18:14 Temperature 98.3 F Pulse Rate 129 H 126 H Respiratory Rate 18 27 H Blood Pressure 148/82 H 148/73 H Pulse Oximetry 100 100 Oxygen Delivery Method Room Air 05/19/22 18:14 05/19/22 18:15 05/19/22 18:15 Temperature Pulse Rate 126 H 125 H Respiratory Rate 24 24 Blood Pressure 143/72 H Pulse Oximetry 100 100 Oxygen Delivery Method 05/19/22 18:42 05/19/22 19:00 05/19/22 19:30 Temperature Pulse Rate 126 H 125 H 126 H Respiratory Rate 36 H 32 H 37 H Blood Pressure Pulse Oximetry Oxygen Delivery Method 05/19/22 19:32 05/19/22 19:32 05/19/22 19:45 Temperature Pulse Rate 124 H Respiratory Rate 28 H Blood Pressure 158/79 H 162/78 H Pulse Oximetry Oxygen Delivery Method 05/19/22 19:45 Temperature Pulse Rate 124 H Respiratory Rate 38 H Blood Pressure Pulse Oximetry Oxygen Delivery Method Medical Decision Making Lab Data Result diagrams: 05/19/22 17:50 05/19/22 23:08 Labs: Lab Results 05/19/22 05/19/22 05/19/22 Range/Units 17:50 17:50 17:50 WBC 13.0 H (4.5-11.0) X10^3/uL RBC 5.96 H (4.5-5.9) X10^6/uL Hgb 17.0 (13.5-17.5) g/dL Hct 52.3 (41-53) % MCV 87.7 (80-100) fL MCH 28.6 (26-34) PG MCHC 32.6 (30-36) % RDW 16.5 H (11.6-14.8) % Plt Count 274 (150-400) X10^3/uL Neut % (Auto) Not Reportable Lymph % (Auto) Not Reportable [place] % (Auto) Not Reportable Eos % (Auto) Not Reportable Baso % (Auto) Not Reportable Lymph # (Auto) Not Reportable [place] # (Auto) Not Reportable Baso # (Auto) Not Reportable Total Counted 100 Seg Neutrophils % 66.0 (38-70) % Band Neutrophils % 5.0 (3-7) % Lymphocytes % (Manual) 19.0 L (25-45) % Monocytes % (Manual) 7.0 (2-11) % Metamyelocytes % 2.0 H (-0) % Myelocytes % 1.0 H (-0) % Neutrophils # (Manual) 9230 H (7560-8980) /uL RBC Morphology See below Anisocytosis 1+ H VBG pH (7.33-7.43) VBG pCO2 (45-50) mmHg VBG pO2 (35-45) mmHg VBG HCO3 (23-28) mmol/L VBG Total CO2 (24-29) mmol/L VBG O2 Saturation (70-75) % VBG Base Excess (0-4) mmol/L Sodium 140 (137-145) mmol/L Potassium 3.8 (3.4-5.1) mmol/L Chloride 106 (98-107) mmol/L Carbon Dioxide < 5 L* (22-32) mmol/L BUN 7 L (9-20) mg/dL Creatinine 0.92 (0.66-1.25) mg/dL Estimated GFR > 60 (>60) mL/min BUN/Creatinine Ratio 7.6 (6-22) Glucose 182 H (70-100) mg/dL Hemoglobin A1c (4.0-6.0) % Lactate (0.7-2.1) mmol/L Calcium 7.7 L (8.4-10.2) mg/dL Magnesium (1.6-2.3) mg/dL Total Bilirubin 0.6 (0.2-1.3) mg/dL AST 18 (17-59) IU/L ALT 15 (<50) IU/L Alkaline Phosphatase 144 H (38-126) U/L Troponin I (0.01-0.034) ng/mL NT-Pro-B Natriuret Pep (<125) pg/mL Total Protein 9.9 H (6.3-8.2) g/dL Albumin 4.9 (3.5-5.0) g/dL Globulin 5.0 H (1.7-4.1) g/dL Albumin/Globulin Ratio 1.0 (1.0-2.8) Amylase (30-110) U/L Lipase (23-300) U/L TSH (0.47-4.68) uIU/mL Free T4 (0.78-2.19) ng/dL Urine RBC (0-5/HPF) Urine WBC (0-5/HPF) Ur Squamous Epith Cells (0-5/HPF) Amorphous Sediment Urine Bacteria (None) Urine Mucus (Negative) Urine Yeast (None) Ur Culture Indicated? Salicylates (<20) mg/dL U Opiates 300ng/mL cut (Negative) Ur Oxycodone Screen (Negative) Urine Methadone Screen (Negative) Ur Barbiturates Screen (Negative) U Tricyclic Antidepress (Negative) Ur Phencyclidine Scrn (Negative) Ur Amphetamines Screen (Negative) U Methamphetamines Scrn (Negative) Ur MDMA Scrn (Ecstasy) (Negative) U Benzodiazepines Scrn (Negative) Urine Cocaine Screen (Negative) U Marijuana (THC) Screen (Negative) Ketones 11.61 H (<0.27) mmol/L SARS-CoV-2 (PCR) (Negative) 05/19/22 05/19/22 05/19/22 Range/Units 17:50 17:50 17:50 WBC (4.5-11.0) X10^3/uL RBC (4.5-5.9) X10^6/uL Hgb (13.5-17.5) g/dL Hct (41-53) % MCV (80-100) fL MCH (26-34) PG MCHC (30-36) % RDW (11.6-14.8) % Plt Count (150-400) X10^3/uL Neut % (Auto) Lymph % (Auto) [place] % (Auto) Eos % (Auto) Baso % (Auto) Lymph # (Auto) [place] # (Auto) Baso # (Auto) Total Counted Seg Neutrophils % (38-70) % Band Neutrophils % (3-7) % Lymphocytes % (Manual) (25-45) % Monocytes % (Manual) (2-11) % Metamyelocytes % (-0) % Myelocytes % (-0) % Neutrophils # (Manual) (4942-8811) /uL RBC Morphology Anisocytosis VBG pH (7.33-7.43) VBG pCO2 (45-50) mmHg VBG pO2 (35-45) mmHg VBG HCO3 (23-28) mmol/L VBG Total CO2 (24-29) mmol/L VBG O2 Saturation (70-75) % VBG Base Excess (0-4) mmol/L Sodium (137-145) mmol/L Potassium (3.4-5.1) mmol/L Chloride (98-107) mmol/L Carbon Dioxide (22-32) mmol/L BUN (9-20) mg/dL Creatinine (0.66-1.25) mg/dL Estimated GFR (>60) mL/min BUN/Creatinine Ratio (6-22) Glucose (70-100) mg/dL Hemoglobin A1c > 14.0 H (4.0-6.0) % Lactate (0.7-2.1) mmol/L Calcium (8.4-10.2) mg/dL Magnesium (1.6-2.3) mg/dL Total Bilirubin (0.2-1.3) mg/dL AST (17-59) IU/L ALT (<50) IU/L Alkaline Phosphatase (38-126) U/L Troponin I < 0.012 (0.01-0.034) ng/mL NT-Pro-B Natriuret Pep (<125) pg/mL Total Protein (6.3-8.2) g/dL Albumin (3.5-5.0) g/dL Globulin (1.7-4.1) g/dL Albumin/Globulin Ratio (1.0-2.8) Amylase (30-110) U/L Lipase 108 (23-300) U/L TSH (0.47-4.68) uIU/mL Free T4 (0.78-2.19) ng/dL Urine RBC (0-5/HPF) Urine WBC (0-5/HPF) Ur Squamous Epith Cells (0-5/HPF) Amorphous Sediment Urine Bacteria (None) Urine Mucus (Negative) Urine Yeast (None) Ur Culture Indicated? Salicylates < 1.0 (<20) mg/dL U Opiates 300ng/mL cut (Negative) Ur Oxycodone Screen (Negative) Urine Methadone Screen (Negative) Ur Barbiturates Screen (Negative) U Tricyclic Antidepress (Negative) Ur Phencyclidine Scrn (Negative) Ur Amphetamines Screen (Negative) U Methamphetamines Scrn (Negative) Ur MDMA Scrn (Ecstasy) (Negative) U Benzodiazepines Scrn (Negative) Urine Cocaine Screen (Negative) U Marijuana (THC) Screen (Negative) Ketones (<0.27) mmol/L SARS-CoV-2 (PCR) (Negative) 05/19/22 05/19/22 05/19/22 Range/Units 17:50 17:50 17:50 WBC (4.5-11.0) X10^3/uL RBC (4.5-5.9) X10^6/uL Hgb (13.5-17.5) g/dL Hct (41-53) % MCV (80-100) fL MCH (26-34) PG MCHC (30-36) % RDW (11.6-14.8) % Plt Count (150-400) X10^3/uL Neut % (Auto) Lymph % (Auto) [place] % (Auto) Eos % (Auto) Baso % (Auto) Lymph # (Auto) [place] # (Auto) Baso # (Auto) Total Counted Seg Neutrophils % (38-70) % Band Neutrophils % (3-7) % Lymphocytes % (Manual) (25-45) % Monocytes % (Manual) (2-11) % Metamyelocytes % (-0) % Myelocytes % (-0) % Neutrophils # (Manual) (4605-8411) /uL RBC Morphology Anisocytosis VBG pH (7.33-7.43) VBG pCO2 (45-50) mmHg VBG pO2 (35-45) mmHg VBG HCO3 (23-28) mmol/L VBG Total CO2 (24-29) mmol/L VBG O2 Saturation (70-75) % VBG Base Excess (0-4) mmol/L Sodium (137-145) mmol/L Potassium (3.4-5.1) mmol/L Chloride (98-107) mmol/L Carbon Dioxide (22-32) mmol/L BUN (9-20) mg/dL Creatinine (0.66-1.25) mg/dL Estimated GFR (>60) mL/min BUN/Creatinine Ratio (6-22) Glucose (70-100) mg/dL Hemoglobin A1c (4.0-6.0) % Lactate 1.2 (0.7-2.1) mmol/L Calcium (8.4-10.2) mg/dL Magnesium 2.1 (1.6-2.3) mg/dL Total Bilirubin (0.2-1.3) mg/dL AST (17-59) IU/L ALT (<50) IU/L Alkaline Phosphatase (38-126) U/L Troponin I (0.01-0.034) ng/mL NT-Pro-B Natriuret Pep 22 (<125) pg/mL Total Protein (6.3-8.2) g/dL Albumin (3.5-5.0) g/dL Globulin (1.7-4.1) g/dL Albumin/Globulin Ratio (1.0-2.8) Amylase (30-110) U/L Lipase (23-300) U/L TSH (0.47-4.68) uIU/mL Free T4 (0.78-2.19) ng/dL Urine RBC (0-5/HPF) Urine WBC (0-5/HPF) Ur Squamous Epith Cells (0-5/HPF) Amorphous Sediment Urine Bacteria (None) Urine Mucus (Negative) Urine Yeast (None) Ur Culture Indicated? Salicylates (<20) mg/dL U Opiates 300ng/mL cut (Negative) Ur Oxycodone Screen (Negative) Urine Methadone Screen (Negative) Ur Barbiturates Screen (Negative) U Tricyclic Antidepress (Negative) Ur Phencyclidine Scrn (Negative) Ur Amphetamines Screen (Negative) U Methamphetamines Scrn (Negative) Ur MDMA Scrn (Ecstasy) (Negative) U Benzodiazepines Scrn (Negative) Urine Cocaine Screen (Negative) U Marijuana (THC) Screen (Negative) Ketones (<0.27) mmol/L SARS-CoV-2 (PCR) (Negative) 05/19/22 05/19/22 05/19/22 Range/Units 17:50 17:50 17:53 WBC (4.5-11.0) X10^3/uL RBC (4.5-5.9) X10^6/uL Hgb (13.5-17.5) g/dL Hct (41-53) % MCV (80-100) fL MCH (26-34) PG MCHC (30-36) % RDW (11.6-14.8) % Plt Count (150-400) X10^3/uL Neut % (Auto) Lymph % (Auto) [place] % (Auto) Eos % (Auto) Baso % (Auto) Lymph # (Auto) [place] # (Auto) Baso # (Auto) Total Counted Seg Neutrophils % (38-70) % Band Neutrophils % (3-7) % Lymphocytes % (Manual) (25-45) % Monocytes % (Manual) (2-11) % Metamyelocytes % (-0) % Myelocytes % (-0) % Neutrophils # (Manual) (9609-5562) /uL RBC Morphology Anisocytosis VBG pH (7.33-7.43) VBG pCO2 (45-50) mmHg VBG pO2 (35-45) mmHg VBG HCO3 (23-28) mmol/L VBG Total CO2 (24-29) mmol/L VBG O2 Saturation (70-75) % VBG Base Excess (0-4) mmol/L Sodium (137-145) mmol/L Potassium (3.4-5.1) mmol/L Chloride (98-107) mmol/L Carbon Dioxide (22-32) mmol/L BUN (9-20) mg/dL Creatinine (0.66-1.25) mg/dL Estimated GFR (>60) mL/min BUN/Creatinine Ratio (6-22) Glucose (70-100) mg/dL Hemoglobin A1c (4.0-6.0) % Lactate (0.7-2.1) mmol/L Calcium (8.4-10.2) mg/dL Magnesium (1.6-2.3) mg/dL Total Bilirubin (0.2-1.3) mg/dL AST (17-59) IU/L ALT (<50) IU/L Alkaline Phosphatase (38-126) U/L Troponin I (0.01-0.034) ng/mL NT-Pro-B Natriuret Pep (<125) pg/mL Total Protein (6.3-8.2) g/dL Albumin (3.5-5.0) g/dL Globulin (1.7-4.1) g/dL Albumin/Globulin Ratio (1.0-2.8) Amylase 71 (30-110) U/L Lipase (23-300) U/L TSH 0.05 L (0.47-4.68) uIU/mL Free T4 1.29 (0.78-2.19) ng/dL Urine RBC (0-5/HPF) Urine WBC (0-5/HPF) Ur Squamous Epith Cells (0-5/HPF) Amorphous Sediment Urine Bacteria (None) Urine Mucus (Negative) Urine Yeast (None) Ur Culture Indicated? Salicylates (<20) mg/dL U Opiates 300ng/mL cut (Negative) Ur Oxycodone Screen (Negative) Urine Methadone Screen (Negative) Ur Barbiturates Screen (Negative) U Tricyclic Antidepress (Negative) Ur Phencyclidine Scrn (Negative) Ur Amphetamines Screen (Negative) U Methamphetamines Scrn (Negative) Ur MDMA Scrn (Ecstasy) (Negative) U Benzodiazepines Scrn (Negative) Urine Cocaine Screen (Negative) U Marijuana (THC) Screen (Negative) Ketones (<0.27) mmol/L SARS-CoV-2 (PCR) Negative (Negative) 05/19/22 05/19/22 05/19/22 Range/Units 18:02 18:10 18:10 WBC (4.5-11.0) X10^3/uL RBC (4.5-5.9) X10^6/uL Hgb (13.5-17.5) g/dL Hct (41-53) % MCV (80-100) fL MCH (26-34) PG MCHC (30-36) % RDW (11.6-14.8) % Plt Count (150-400) X10^3/uL Neut % (Auto) Lymph % (Auto) [place] % (Auto) Eos % (Auto) Baso % (Auto) Lymph # (Auto) [place] # (Auto) Baso # (Auto) Total Counted Seg Neutrophils % (38-70) % Band Neutrophils % (3-7) % Lymphocytes % (Manual) (25-45) % Monocytes % (Manual) (2-11) % Metamyelocytes % (-0) % Myelocytes % (-0) % Neutrophils # (Manual) (5552-8306) /uL RBC Morphology Anisocytosis VBG pH 7.04 L* (7.33-7.43) VBG pCO2 17.8 L (45-50) mmHg VBG pO2 114 H (35-45) mmHg VBG HCO3 5 L (23-28) mmol/L VBG Total CO2 5 L (24-29) mmol/L VBG O2 Saturation 96 H (70-75) % VBG Base Excess -26.0 L (0-4) mmol/L Sodium (137-145) mmol/L Potassium (3.4-5.1) mmol/L Chloride (98-107) mmol/L Carbon Dioxide (22-32) mmol/L BUN (9-20) mg/dL Creatinine (0.66-1.25) mg/dL Estimated GFR (>60) mL/min BUN/Creatinine Ratio (6-22) Glucose (70-100) mg/dL Hemoglobin A1c (4.0-6.0) % Lactate (0.7-2.1) mmol/L Calcium (8.4-10.2) mg/dL Magnesium (1.6-2.3) mg/dL Total Bilirubin (0.2-1.3) mg/dL AST (17-59) IU/L ALT (<50) IU/L Alkaline Phosphatase (38-126) U/L Troponin I (0.01-0.034) ng/mL NT-Pro-B Natriuret Pep (<125) pg/mL Total Protein (6.3-8.2) g/dL Albumin (3.5-5.0) g/dL Globulin (1.7-4.1) g/dL Albumin/Globulin Ratio (1.0-2.8) Amylase (30-110) U/L Lipase (23-300) U/L TSH (0.47-4.68) uIU/mL Free T4 (0.78-2.19) ng/dL Urine RBC 0-1/hpf (0-5/HPF) Urine WBC 10-30/hpf H (0-5/HPF) Ur Squamous Epith Cells 1-5 /hpf (0-5/HPF) Amorphous Sediment 1+ Urine Bacteria Few (2-10) H (None) Urine Mucus 1+ H (Negative) Urine Yeast 0-1/hpf (None) Ur Culture Indicated? Specimen cultured Salicylates (<20) mg/dL U Opiates 300ng/mL cut Negative (Negative) Ur Oxycodone Screen Negative (Negative) Urine Methadone Screen Negative (Negative) Ur Barbiturates Screen Negative (Negative) U Tricyclic Antidepress Negative (Negative) Ur Phencyclidine Scrn Negative (Negative) Ur Amphetamines Screen Negative (Negative) U Methamphetamines Scrn Negative (Negative) Ur MDMA Scrn (Ecstasy) Negative (Negative) U Benzodiazepines Scrn Negative (Negative) Urine Cocaine Screen Negative (Negative) U Marijuana (THC) Screen Negative (Negative) Ketones (<0.27) mmol/L SARS-CoV-2 (PCR) (Negative) Point of Care Testing Glucose POC 148 Urine Dip Bedside Urine Glucose 500 mg/dl Bedside Urine Bilirubin - Negative Bedside Urine Ketone +++ 80 Urine Specific [place] 1.030 Bedside Urine Occult Blood + Bedside Urine pH 6.0 Bedside Urine Protein ++ 100 Bedside Urine Urobilinogen - Negative Bedside Urine Nitrite - Negative Bedside Urine Leukocytes - Negative Esterase Point of care testing: Point of Care Testing Glucose POC 148 Urine Dip Bedside Urine Glucose 500 mg/dl Bedside Urine Bilirubin - Negative Bedside Urine Ketone +++ 80 Urine Specific [place] 1.030 Bedside Urine Occult Blood + Bedside Urine pH 6.0 Bedside Urine Protein ++ 100 Bedside Urine Urobilinogen - Negative Bedside Urine Nitrite - Negative Bedside Urine Leukocytes - Negative Esterase MDM Narrative Medical decision making narrative: Diabetic with generalized abdominal pain nausea feeling unwell has significantly abnormal VBG with metabolic acidosis and significant anion gap, patient given multiple L of fluid, started on an insulin drip, pain controlled, urine suggest infection and antibiotics initiated Discharge Plan Departure Patient Disposition: Admitted As Inpatient Admit Date/Time: 05/19/22 19:54 Admit Provider: Rafaela Modi
[2022-05-19 18:14] LABS: PCO2 VBG 17.8 mmHg (45-50); PO2 VBG 114 mmHg (35-45); pH VBG 7.04 (7.33-7.43)
[2022-05-19 18:15] LABS: HCO3 VBG 5 mmol/L (23-28); Oxygen Saturation VBG 96 % (70-75); Total CO2 VBG 5 mmol/L (24-29)
[2022-05-19 18:15] LABS: Hematocrit 52.3 % (41-53); Mean Corpuscular HGB Conc 32.6 % (30-36); Mean Corpuscular Hemoglobin 28.6 PG (26-34); Mean Corpuscular Volume 87.7 fL (80-100); Platelet Count 274 X10^3/uL (150-400); Red Blood Cell Count 5.96 X10^6/uL (4.5-5.9); Red Cell Distribution Width 16.5 % (11.6-14.8)
[2022-05-19 18:16] LABS: Add Manual Diff / Slide Review YES
[2022-05-19 18:18] LABS: Alanine Aminotransferase 15 IU/L (<50); Albumin 4.9 g/dL (3.5-5.0); Alkaline Phosphatase 144 U/L (38-126); Aspartate Aminotransferase 18 IU/L (17-59); BUN Creatinine Ratio 7.6 (6-22); Bilirubin Total 0.6 mg/dL (0.2-1.3); Blood Urea Nitrogen 7 mg/dL (9-20); Calcium 7.7 mg/dL (8.4-10.2); Chloride 106 mmol/L (98-107); Estimated Glomerular Filt Rate > 60 mL/min (>60); Glucose 182 mg/dL (70-100); HEMOLYSIS 19 (0-50); Potassium 3.8 mmol/L (3.4-5.1); Sodium 140 mmol/L (137-145); Total Protein 9.9 g/dL (6.3-8.2)
[2022-05-19 18:19] LABS: Ketones (Beta-Hydroxybutyrate) 11.61 mmol/L (<0.27)
[2022-05-19] MEDS: ONDANSETRON 4 MG/2 ML INJ IV (18:23)
[2022-05-19] MEDS: LACTATED RINGERS 1,000 ML 1000 ML IV (18:23)
[2022-05-19 18:40] LABS: Carbon Dioxide < 5 mmol/L (22-32)
[2022-05-19 18:42] LABS: COVID19 -Nasal RAPID Negative (Negative)
[2022-05-19 18:45] LABS: Hemoglobin A1C% w Est Avg Glu > 14.0 % (4.0-6.0)
[2022-05-19 18:56] LABS: RBC Urine 0-1/HPF (0-5/HPF); WBC Urine 10-30/HPF (0-5/HPF)
[2022-05-19 18:57] LABS: Amorphous Sediment Urine 1+; Bacteria Urine Few (2-10); Culture Indicated Urine Specimen Cultured; Mucus Urine 1+ (Negative); Squamous Epithelial Cell Urine 1-5 /HPF (0-5/HPF)
[2022-05-19 19:01] LABS: Anisocytosis 1+; Neutrophils Absolute Manual 9230 /uL (3000-5900); Total Cells Counted 100
[2022-05-19 19:05] LABS: Lipase 108 U/L (23-300)
[2022-05-19] MEDS: KETOROLAC 30 MG/ML VIAL 15 MG IV (19:23)
[2022-05-19] MEDS: INSULIN DRIP PREMIX 100 UNIT/100 ML PLAST..BAG 6 UNIT IV (19:29)
[2022-05-19] MEDS: cefTRIAXone 2,000 MG in SODIUM CHLORIDE 0.9% 100 ML 200 MG IV (20:12)
--- NOTE | 2022-05-19 20:59 | PC.NURSE ---
Transferred patient up on insulin drip set at 6ml/hr, upon arrival transferred drip from single pump to ICU's triple pump and programmed using insulin therapy program, verified by Olimpia SRINIVASAN that programmed per orders from ED.
[2022-05-19] MEDS: LACTATED RINGERS 1,000 ML 100 ML IV (21:26)
[2022-05-19] MEDS: POTASSIUM CHLORIDE IN WATER 10 MEQ/100 ML PIGGYBACK 100 MEQ IV ×2 (21:27→22:40)
--- NOTE | 2022-05-19 22:13 | PC.NURSE ---
Addendum entered by Karissa Son R.N. 05/20/22 06:53: End of shift. Patient is lethargic, easily awakens to name, follows commands and is oriented. Telemetry has been St 100-110s. Had one episode of nausea with dry heaves. Has been febrile, received Tylenol 650mg per rectum. Continues to be on insulin gtt and MIV of D5 1/2NS. Voids via urinal at bedside. Addendum entered by Karissa Son R.N. 05/20/22 04:15: Dr. Mclain called in over video conference in patient room and updated on patient's condition. No new orders. Addendum entered by Karissa Son R.N. 05/20/22 01:16: Per SEAN Jerome she will communicate with [employer] installer. Original Note: At 2049 patient arrived from ED and admitted to ICU RM 230. Patient arrived AAOX4, tachypneic, tachycardia, with insulin drip infusing 6units and hour. Insulin drip put on hold upon admit to ICU, orders reviewed, DKA protocol reviewed and insulin drip calculated based off of patient's weight, insulin drip resumed. At 2204 notified SEAN Jerome that patient arrived and that BS is now below 200. New orders to change IV fluid to D5 1/2 NS and give Lantus 30 units tonight and patient can eat if he can tolerate it.
[2022-05-19 22:23] LABS: Lactate (Lactic Acid) 1.2 mmol/L (0.7-2.1)
[2022-05-19 22:33] LABS: NT-proBNP (BNP-Adult 18+) 22 pg/mL (<125)
[2022-05-19 22:35] LABS: Salicylate < 1.0 mg/dL (<20)
[2022-05-19 22:36] LABS: UR Morphine/Opiate cutoff 300 Negative (Negative); Ur Creatinine Normal (Normal); Ur Specific Gravity Normal (Normal); Urine Amphetamines Negative (Negative); Urine Barbiturates Negative (Negative); Urine Benzodiazepines Negative (Negative); Urine Cocaine Negative (Negative); Urine MDMA Negative (Negative); Urine Methadone Negative (Negative); Urine Methamphetamines Negative (Negative); Urine Oxycodone Negative (Negative); Urine Phencyclidine Negative (Negative); Urine Tetrahydrocannabinol Negative (Negative); Urine Tricyclic Antidepressant Negative (Negative); Urine pH Normal (Normal)
[2022-05-19] MEDS: INSULIN GLARGINE 100 UNIT/ML 3ML PEN 30 UNIT SUBCUT (22:36)
[2022-05-19 22:37] LABS: Magnesium 2.1 mg/dL (1.6-2.3)
[2022-05-19] MEDS: DEXTROSE 5%-0.45% NS 1,000 ML 100 ML IV (22:40)
[2022-05-19] MEDS: lisinopriL 10 MG TABLET PO (22:42)
[2022-05-19 22:48] LABS: Amylase 71 U/L (30-110); Troponin I < 0.012 ng/mL (0.01-0.034)
[2022-05-19 22:55] LABS: TSH w/ Reflex to FT4 0.05 uIU/mL (0.47-4.68)
[2022-05-19 23:28] LABS: Free T4, Direct Thyroxine 1.29 ng/dL (0.78-2.19)
[2022-05-19 23:40] LABS: BUN Creatinine Ratio 7.4 (6-22); Blood Urea Nitrogen 7 mg/dL (9-20); Calcium 7.2 mg/dL (8.4-10.2); Chloride 110 mmol/L (98-107); Estimated Glomerular Filt Rate > 60 mL/min (>60); Glucose 144 mg/dL (70-100); HEMOLYSIS < 15 (0-50); Potassium 3.5 mmol/L (3.4-5.1); Sodium 141 mmol/L (137-145)
[2022-05-19 23:45] LABS: Carbon Dioxide < 5 mmol/L (22-32)
[2022-05-20] VITALS (59 sets, daily range): BP systolic 88–130; BP diastolic 43–73; PULSE 96–129; RESP 15–35; TEMP 36.2–37.7; O2SAT 97–100
[2022-05-20] MEDS: POTASSIUM CHLORIDE IN WATER 10 MEQ/100 ML PIGGYBACK 75 MEQ IV (00:17)
[2022-05-20 00:20] LABS: HCO3 VBG 6 mmol/L (23-28); PCO2 VBG 21.3 mmHg (45-50); PO2 VBG 24 mmHg (35-45); Total CO2 VBG 6 mmol/L (24-29); pH VBG 7.04 (7.33-7.43)
[2022-05-20 00:21] LABS: Oxygen Saturation VBG 23 % (70-75)
[2022-05-20] MEDS: METOPROLOL TARTRATE 5 MG/5 ML INJ IV ×2 (00:23→02:35)
[2022-05-20] MEDS: POTASSIUM CHLORIDE IN WATER 10 MEQ/100 ML PIGGYBACK 100 MEQ IV ×5 (02:34→14:10)
[2022-05-20] MEDS: ONDANSETRON 4 MG/2 ML INJ IV ×2 (03:53→18:19)
--- NOTE | 2022-05-20 04:27 | PM.CN.EICU ---
History of Present Illness Consult details IF CAMERA ACTIVATED, patient seen via real-time interactive audiovisual communication: Camera activated Chief complaint: Not feeling well, Vomiting Consent obtained for tele-pain management nurse practitioner care: Yes Patient Location: ICU Provider location (State): [place] Other participants/roles: RN Narrative: 27 y.o. male who presented w/ nausea, vomiting and abdominal pain. Found to be in DKA w/ AG of 29, lactate 1.2, glucose 182, HCO3 < 5, Na 140. WBC is 13K and UA is suspicious for a UTI. Ceftriaxone has been started. Insulin is currently infusing at 3.1 units/hr. Reported compliance w/ insulin; however, was reportedly injecting into abdominal scar tissue so absorption may have been affected. COUNTS INCLUDE 234 BEDS AT THE [facility] Medical History Acute pancreatitis Diabetes mellitus DKA (diabetic ketoacidoses) Pancreatic pseudocyst Surgical History No pertinent past surgical history Family History Father Diabetes mellitus Mother Diabetes mellitus Brother No known problems Sister No known problems Social History household members: family Smoking Status: Never smoker alcohol intake: never Current Medications Current Medications Medications: Home Medications blood-glucose meter (Blood Glucose Monitoring kit) #1 ea 06/15/19 [Rx Confirmed 09/01/19] glucose 4 gram chewable tablet 4 gram PO Q15M PRN hypoglycemia #30 tabs 06/15/19 [Rx Confirmed 09/01/19] insulin glargine 100 unit/mL (3 mL) subcutaneous pen (Lantus Solostar U-100 Insulin) 20 unit (0.2 mL) SUBCUT BEDTIME #15 mL 06/15/19 [Rx Confirmed 09/01/19] lisinopril 10 mg tablet 10 mg PO DAILY 09/01/19 [History Confirmed 09/01/19] metformin 750 mg tablet,extended release 24 hr 1,500 mg PO BID 09/01/19 [History Confirmed 09/01/19] Visit Medications (administered) Generic Name Dose Route Start Last Admin Trade Name Freq PRN Reason Stop Dose Admin INSULIN DRIP PREMIX 100 unit in 100 mls @ 6 mls/hr 05/19/22 19:00 05/20/22 04:24 Myxredlin Drip Premix IV 7.7 ml/hr TITRATE PAM 7.7 mls/hr Titration Protocol Lactated Ringer's 1,000 mls @ 80 mls/hr 05/19/22 20:30 05/20/22 03:25 Lactated Ringers IV 80 mls/hr CONT PAM Infusion Dextrose/Sodium Chloride 1,000 mls @ 100 mls/hr 05/19/22 22:15 05/19/22 22:40 Dextrose 5%-0.45% Ns IV 100 mls/hr CONT PAM Administration Insulin Glargine 30 unit 05/19/22 20:21 05/19/22 22:36 Insulin Glargine 100 Unit/Ml 3ml Pen SUBCUT 30 unit BEDTIME PRN Administration Blood Sugar - High Lisinopril 10 mg 05/19/22 21:17 05/19/22 22:42 Lisinopril 10 Mg Tablet PO 10 mg DAILY PAM Administration Metoprolol Tartrate 5 mg 05/19/22 23:29 05/20/22 02:35 Metoprolol Tartrate 5 Mg/5 Ml Inj IV 05/21/22 23:31 5 mg Q10MIN PRN Administration start 2.5mg Ondansetron HCl 4 mg 05/19/22 20:05 05/20/22 03:53 Ondansetron 4 Mg/2 Ml Inj IV 4 mg Q4HR PRN Administration Nausea And Vomiting Exam Vital Signs (past 8 hours): - 05/19/22 20:30 05/19/22 20:30 05/19/22 22:42 Temperature Pulse Rate 126 H 123 H Respiratory Rate 36 H Blood Pressure 149/75 H 136/78 Pulse Oximetry Oxygen Delivery Method Oxygen Flow Rate 05/19/22 20:50 05/19/22 21:35 05/19/22 22:00 Temperature 99.2 F Pulse Rate 124 H 122 H 122 H Respiratory Rate 30 H 34 H 32 H Blood Pressure 136/78 Pulse Oximetry 100 100 100 Oxygen Delivery Method Oxygen Flow Rate 0 05/19/22 22:30 05/19/22 23:00 05/19/22 23:30 Temperature Pulse Rate 120 H 124 H 132 H Respiratory Rate 31 H 33 H 22 Blood Pressure 136/78 136/78 Pulse Oximetry 100 100 100 Oxygen Delivery Method Oxygen Flow Rate 05/20/22 00:00 05/19/22 21:00 05/20/22 00:00 Temperature Pulse Rate 129 H Respiratory Rate 35 H Blood Pressure Pulse Oximetry Oxygen Delivery Method Room Air Room Air Oxygen Flow Rate 05/20/22 00:30 05/20/22 01:00 05/20/22 01:20 Temperature Pulse Rate 105 H 111 H Respiratory Rate 29 H 30 H Blood Pressure 117/63 Pulse Oximetry 100 100 Oxygen Delivery Method Oxygen Flow Rate 05/20/22 01:20 05/20/22 01:30 05/20/22 02:00 Temperature Pulse Rate 113 H 115 H 121 H Respiratory Rate 31 H 31 H 32 H Blood Pressure Pulse Oximetry 100 100 100 Oxygen Delivery Method Oxygen Flow Rate 05/20/22 02:30 05/20/22 03:00 05/20/22 03:23 Temperature 99.4 F Pulse Rate 115 H 103 H Respiratory Rate 29 H 31 H Blood Pressure Pulse Oximetry 100 100 Oxygen Delivery Method Oxygen Flow Rate 05/20/22 04:00 Temperature Pulse Rate Respiratory Rate Blood Pressure Pulse Oximetry Oxygen Delivery Method Room Air Oxygen Flow Rate Oxygen Delivery Method Room Air Oxygen Flow Rate 0 Const General: comfortable (sleeping) Resp Effort & Inspection: normal respiratory effort Objective Labs Result Diagrams: 05/19/22 17:50 05/19/22 23:08 Labs: Laboratory Results - last 24 hr 05/19/22 05/19/22 05/19/22 17:50 17:50 17:50 WBC 13.0 H RBC 5.96 H Hgb 17.0 Hct 52.3 MCV 87.7 MCH 28.6 MCHC 32.6 RDW 16.5 H Plt Count 274 Neut % (Auto) Not Reportable Lymph % (Auto) Not Reportable [place] % (Auto) Not Reportable Eos % (Auto) Not Reportable Baso % (Auto) Not Reportable Lymph # (Auto) Not Reportable [place] # (Auto) Not Reportable Baso # (Auto) Not Reportable Total Counted 100 Seg Neutrophils % 66.0 Band Neutrophils % 5.0 Lymphocytes % (Manual) 19.0 L Monocytes % (Manual) 7.0 Metamyelocytes % 2.0 H Myelocytes % 1.0 H Neutrophils # (Manual) 9230 H RBC Morphology See below Anisocytosis 1+ H VBG pH VBG pCO2 VBG pO2 VBG HCO3 VBG Total CO2 VBG O2 Saturation VBG Base Excess Sodium 140 Potassium 3.8 Chloride 106 Carbon Dioxide < 5 L* BUN 7 L Creatinine 0.92 Estimated GFR > 60 BUN/Creatinine Ratio 7.6 Glucose 182 H Hemoglobin A1c Lactate Calcium 7.7 L Magnesium Total Bilirubin 0.6 AST 18 ALT 15 Alkaline Phosphatase 144 H Troponin I NT-Pro-B Natriuret Pep Total Protein 9.9 H Albumin 4.9 Globulin 5.0 H Albumin/Globulin Ratio 1.0 Amylase Lipase TSH Free T4 Urine RBC Urine WBC Ur Squamous Epith Cells Amorphous Sediment Urine Bacteria Urine Mucus Urine Yeast Ur Culture Indicated? Nasal Screen MRSA (PCR) Salicylates U Opiates 300ng/mL cut Ur Oxycodone Screen Urine Methadone Screen Ur Barbiturates Screen U Tricyclic Antidepress Ur Phencyclidine Scrn Ur Amphetamines Screen U Methamphetamines Scrn Ur MDMA Scrn (Ecstasy) U Benzodiazepines Scrn Urine Cocaine Screen U Marijuana (THC) Screen Ketones 11.61 H SARS-CoV-2 (PCR) 05/19/22 05/19/22 05/19/22 17:50 17:50 17:50 WBC RBC Hgb Hct MCV MCH MCHC RDW Plt Count Neut % (Auto) Lymph % (Auto) [place] % (Auto) Eos % (Auto) Baso % (Auto) Lymph # (Auto) [place] # (Auto) Baso # (Auto) Total Counted Seg Neutrophils % Band Neutrophils % Lymphocytes % (Manual) Monocytes % (Manual) Metamyelocytes % Myelocytes % Neutrophils # (Manual) RBC Morphology Anisocytosis VBG pH VBG pCO2 VBG pO2 VBG HCO3 VBG Total CO2 VBG O2 Saturation VBG Base Excess Sodium Potassium Chloride Carbon Dioxide BUN Creatinine Estimated GFR BUN/Creatinine Ratio Glucose Hemoglobin A1c > 14.0 H Lactate Calcium Magnesium Total Bilirubin AST ALT Alkaline Phosphatase Troponin I < 0.012 NT-Pro-B Natriuret Pep Total Protein Albumin Globulin Albumin/Globulin Ratio Amylase Lipase 108 TSH Free T4 Urine RBC Urine WBC Ur Squamous Epith Cells Amorphous Sediment Urine Bacteria Urine Mucus Urine Yeast Ur Culture Indicated? Nasal Screen MRSA (PCR) Salicylates < 1.0 U Opiates 300ng/mL cut Ur Oxycodone Screen Urine Methadone Screen Ur Barbiturates Screen U Tricyclic Antidepress Ur Phencyclidine Scrn Ur Amphetamines Screen U Methamphetamines Scrn Ur MDMA Scrn (Ecstasy) U Benzodiazepines Scrn Urine Cocaine Screen U Marijuana (THC) Screen Ketones SARS-CoV-2 (PCR) 05/19/22 05/19/22 05/19/22 17:50 17:50 17:50 WBC RBC Hgb Hct MCV MCH MCHC RDW Plt Count Neut % (Auto) Lymph % (Auto) [place] % (Auto) Eos % (Auto) Baso % (Auto) Lymph # (Auto) [place] # (Auto) Baso # (Auto) Total Counted Seg Neutrophils % Band Neutrophils % Lymphocytes % (Manual) Monocytes % (Manual) Metamyelocytes % Myelocytes % Neutrophils # (Manual) RBC Morphology Anisocytosis VBG pH VBG pCO2 VBG pO2 VBG HCO3 VBG Total CO2 VBG O2 Saturation VBG Base Excess Sodium Potassium Chloride Carbon Dioxide BUN Creatinine Estimated GFR BUN/Creatinine Ratio Glucose Hemoglobin A1c Lactate 1.2 Calcium Magnesium 2.1 Total Bilirubin AST ALT Alkaline Phosphatase Troponin I NT-Pro-B Natriuret Pep 22 Total Protein Albumin Globulin Albumin/Globulin Ratio Amylase Lipase TSH Free T4 Urine RBC Urine WBC Ur Squamous Epith Cells Amorphous Sediment Urine Bacteria Urine Mucus Urine Yeast Ur Culture Indicated? Nasal Screen MRSA (PCR) Salicylates U Opiates 300ng/mL cut Ur Oxycodone Screen Urine Methadone Screen Ur Barbiturates Screen U Tricyclic Antidepress Ur Phencyclidine Scrn Ur Amphetamines Screen U Methamphetamines Scrn Ur MDMA Scrn (Ecstasy) U Benzodiazepines Scrn Urine Cocaine Screen U Marijuana (THC) Screen Ketones SARS-CoV-2 (PCR) 05/19/22 05/19/22 05/19/22 17:50 17:50 17:53 WBC RBC Hgb Hct MCV MCH MCHC RDW Plt Count Neut % (Auto) Lymph % (Auto) [place] % (Auto) Eos % (Auto) Baso % (Auto) Lymph # (Auto) [place] # (Auto) Baso # (Auto) Total Counted Seg Neutrophils % Band Neutrophils % Lymphocytes % (Manual) Monocytes % (Manual) Metamyelocytes % Myelocytes % Neutrophils # (Manual) RBC Morphology Anisocytosis VBG pH VBG pCO2 VBG pO2 VBG HCO3 VBG Total CO2 VBG O2 Saturation VBG Base Excess Sodium Potassium Chloride Carbon Dioxide BUN Creatinine Estimated GFR BUN/Creatinine Ratio Glucose Hemoglobin A1c Lactate Calcium Magnesium Total Bilirubin AST ALT Alkaline Phosphatase Troponin I NT-Pro-B Natriuret Pep Total Protein Albumin Globulin Albumin/Globulin Ratio Amylase 71 Lipase TSH 0.05 L Free T4 1.29 Urine RBC Urine WBC Ur Squamous Epith Cells Amorphous Sediment Urine Bacteria Urine Mucus Urine Yeast Ur Culture Indicated? Nasal Screen MRSA (PCR) Salicylates U Opiates 300ng/mL cut Ur Oxycodone Screen Urine Methadone Screen Ur Barbiturates Screen U Tricyclic Antidepress Ur Phencyclidine Scrn Ur Amphetamines Screen U Methamphetamines Scrn Ur MDMA Scrn (Ecstasy) U Benzodiazepines Scrn Urine Cocaine Screen U Marijuana (THC) Screen Ketones SARS-CoV-2 (PCR) Negative 05/19/22 05/19/22 05/19/22 18:02 18:10 18:10 WBC RBC Hgb Hct MCV MCH MCHC RDW Plt Count Neut % (Auto) Lymph % (Auto) [place] % (Auto) Eos % (Auto) Baso % (Auto) Lymph # (Auto) [place] # (Auto) Baso # (Auto) Total Counted Seg Neutrophils % Band Neutrophils % Lymphocytes % (Manual) Monocytes % (Manual) Metamyelocytes % Myelocytes % Neutrophils # (Manual) RBC Morphology Anisocytosis VBG pH 7.04 L* VBG pCO2 17.8 L VBG pO2 114 H VBG HCO3 5 L VBG Total CO2 5 L VBG O2 Saturation 96 H VBG Base Excess -26.0 L Sodium Potassium Chloride Carbon Dioxide BUN Creatinine Estimated GFR BUN/Creatinine Ratio Glucose Hemoglobin A1c Lactate Calcium Magnesium Total Bilirubin AST ALT Alkaline Phosphatase Troponin I NT-Pro-B Natriuret Pep Total Protein Albumin Globulin Albumin/Globulin Ratio Amylase Lipase TSH Free T4 Urine RBC 0-1/hpf Urine WBC 10-30/hpf H Ur Squamous Epith Cells 1-5 /hpf Amorphous Sediment 1+ Urine Bacteria Few (2-10) H Urine Mucus 1+ H Urine Yeast 0-1/hpf Ur Culture Indicated? Specimen cultured Nasal Screen MRSA (PCR) Salicylates U Opiates 300ng/mL cut Negative Ur Oxycodone Screen Negative Urine Methadone Screen Negative Ur Barbiturates Screen Negative U Tricyclic Antidepress Negative Ur Phencyclidine Scrn Negative Ur Amphetamines Screen Negative U Methamphetamines Scrn Negative Ur MDMA Scrn (Ecstasy) Negative U Benzodiazepines Scrn Negative Urine Cocaine Screen Negative U Marijuana (THC) Screen Negative Ketones SARS-CoV-2 (PCR) 05/19/22 05/19/22 05/20/22 23:08 23:10 00:35 WBC RBC Hgb Hct MCV MCH MCHC RDW Plt Count Neut % (Auto) Lymph % (Auto) [place] % (Auto) Eos % (Auto) Baso % (Auto) Lymph # (Auto) [place] # (Auto) Baso # (Auto) Total Counted Seg Neutrophils % Band Neutrophils % Lymphocytes % (Manual) Monocytes % (Manual) Metamyelocytes % Myelocytes % Neutrophils # (Manual) RBC Morphology Anisocytosis VBG pH 7.04 L* VBG pCO2 21.3 L VBG pO2 24 L VBG HCO3 6 L VBG Total CO2 6 L VBG O2 Saturation 23 L VBG Base Excess -25.0 L Sodium 141 Potassium 3.5 Chloride 110 H Carbon Dioxide < 5 L* BUN 7 L Creatinine 0.95 Estimated GFR > 60 BUN/Creatinine Ratio 7.4 Glucose 144 H Hemoglobin A1c Lactate Calcium 7.2 L Magnesium Total Bilirubin AST ALT Alkaline Phosphatase Troponin I NT-Pro-B Natriuret Pep Total Protein Albumin Globulin Albumin/Globulin Ratio Amylase Lipase TSH Free T4 Urine RBC Urine WBC Ur Squamous Epith Cells Amorphous Sediment Urine Bacteria Urine Mucus Urine Yeast Ur Culture Indicated? Nasal Screen MRSA (PCR) Negative for mrsa Salicylates U Opiates 300ng/mL cut Ur Oxycodone Screen Urine Methadone Screen Ur Barbiturates Screen U Tricyclic Antidepress Ur Phencyclidine Scrn Ur Amphetamines Screen U Methamphetamines Scrn Ur MDMA Scrn (Ecstasy) U Benzodiazepines Scrn Urine Cocaine Screen U Marijuana (THC) Screen Ketones SARS-CoV-2 (PCR) Assessment & Plan Assessment and plan (1) DKA (diabetic ketoacidosis): Status: Acute Plan: -Continue DKA protocol (2) Acute UTI: Status: Acute Plan: -Ceftriaxone pending final culture data Time Spent With Patient Critical Care time: I spent a total of 15 minutes of time on this patient's care today.
[2022-05-20] MEDS: ACETAMINOPHEN 650 MG SUPP PR (04:33)
--- NOTE | 2022-05-20 05:00 | P.HP_ITS ---
History of Present Illness History of Present Illness Date Patient Seen: 05/19/22 Time Patient Seen: 20:36 Chief complaint: Not feeling well, Vomiting Narrative: Kun Samson 27-year-old male nonsmoker with history of type 2 diabetes on Humulin both in the morning and evening without any recent regimen changes, hypertension, morbid obesity presented with chief complaint of nausea, vomiting, rapid breathing and generalized abdominal pain over the course of the day.? He denies missing any doses of his medications other than this morning and denies any significant dietary indiscretions.? He started feeling poorly last night including fatigue, some shortness of breath and mild abdominal pain and presents today under the circumstances listed above.? He is had no fever chills.? Denies runny nose, sore throat or cough. Upon admit patient abdominal pain has improved he is extremely fatigued continues to be significantly tachypneic breathing in the 30s, satting at 100% on room air, is continues to be tachycardic and heart rates above 125-135. Patient currently denies chest pain, is mildly short of breath, denies fever, body aches, chills, no longer nauseated last vomited this morning has had no diarrhea since being in the hospital, denies skin infections with the exception of an infected left ingrown toenail in which he was personally cutting away in removing the nail, denies any recent illness denies any urinary frequency urgency, dysuria, denies any hematuria, denies any bowel changes, or blood in his stool, denies cough, or hematemesis. Patient's vitals at the time of admit temp 98.3?, BP 143/72, HR 126, RR 37, O2 saturation 100% patient is struggling to sit up straight and forward to improve respiratory function. Patient's initial VBG is in ED pH 7.04, pCO2 17.8, PO2 114, HC03 5, T CO2 5, O2 saturation 96%, base excess -26, patient met SIRS criteria in the ED but has a sofa score of 0, patient's has an increased WBC 13, with a left shift neutrophils 9230, hypokalemia potassium 3.8, bicarb< 5, BUN 7, glucose 182, creatinine and GFR are normal, anion gap 30, A1c>14%, total protein 9.9, ketones 11.61, albumin 4.9, patient's urinalysis is positive for white blood cells and bacteria, calcium 7.7, alk-phos 144, patient's chest and a bdominal CT demonstrate upper pulmonary vascularity possibly edema. Patient in moderate distress, admitted to the ICU for DKA secondary UTI. Patient History Medical History Acute pancreatitis Diabetes mellitus DKA (diabetic ketoacidoses) Pancreatic pseudocyst Surgical History History of tonsillectomy No pertinent past surgical history Family & Social History Family History Father Diabetes mellitus Mother Diabetes mellitus Brother No known problems Sister No known problems Social History: household members family Prior Living Arrangements House Safety & Behavioral: Feels Safe in Current Yes Environment Been Physically Hurt or No Threatened By a Person Tobacco & Substance use: Smoking Status Never smoker alcohol intake never alcohol intake frequency holiday/special occasion Substance Use Type does not use Meds Home Medications and Allergies Home Medications Medication Instructions Recorded Confirmed Type blood-glucose meter (Blood Glucose #1 ea 06/15/19 09/01/19 Rx Monitoring kit) glucose 4 gram chewable tablet 4 gram PO Q15M PRN hypoglycemia 06/15/19 09/01/19 Rx #30 tabs insulin glargine 100 unit/mL (3 20 unit (0.2 mL) SUBCUT BEDTIME 06/15/19 09/01/19 Rx mL) subcutaneous pen (Lantus #15 mL Solostar U-100 Insulin) lisinopril 10 mg tablet 10 mg PO DAILY 09/01/19 09/01/19 History metformin 750 mg tablet,extended 1,500 mg PO BID 09/01/19 09/01/19 History release 24 hr Allergies Allergy/AdvReac Type Severity Reaction Status Date / Time No Known Drug Allergies Allergy Unknown Verified 12/06/19 12:36 Review of Systems Review of Systems Narrative: All 12 point systems reviewed with the patient and are negative except otherwise documented. Exam Vital Signs (past 8 hours): - 05/19/22 22:42 05/19/22 21:35 05/19/22 22:00 Temperature Pulse Rate 123 H 122 H 122 H Respiratory Rate 34 H 32 H Blood Pressure 136/78 Pulse Oximetry 100 100 Oxygen Delivery Method 05/19/22 22:30 05/19/22 23:00 05/19/22 23:30 Temperature Pulse Rate 120 H 124 H 132 H Respiratory Rate 31 H 33 H 22 Blood Pressure 136/78 136/78 Pulse Oximetry 100 100 100 Oxygen Delivery Method 05/20/22 00:00 05/20/22 00:00 05/20/22 00:30 Temperature Pulse Rate 129 H 105 H Respiratory Rate 35 H 29 H Blood Pressure Pulse Oximetry 100 Oxygen Delivery Method Room Air 05/20/22 01:00 05/20/22 01:20 05/20/22 01:20 Temperature Pulse Rate 111 H 113 H Respiratory Rate 30 H 31 H Blood Pressure 117/63 Pulse Oximetry 100 100 Oxygen Delivery Method 05/20/22 01:30 05/20/22 02:00 05/20/22 02:30 Temperature Pulse Rate 115 H 121 H 115 H Respiratory Rate 31 H 32 H 29 H Blood Pressure Pulse Oximetry 100 100 100 Oxygen Delivery Method 05/20/22 03:00 05/20/22 03:23 05/20/22 04:00 Temperature 99.4 F Pulse Rate 103 H Respiratory Rate 31 H Blood Pressure Pulse Oximetry 100 Oxygen Delivery Method Room Air 05/20/22 04:33 Temperature 99.4 F Pulse Rate Respiratory Rate Blood Pressure Pulse Oximetry Oxygen Delivery Method Oxygen Delivery Method Room Air Oxygen Flow Rate 0 Narrative Exam Narrative: GENERAL: [27] year old patient appears stated age. Morbidly obese, Well- developed patient, in moderate distress, ill-appearing, rapid breathing, adequate oxygenation HEAD: Atraumatic. Normocephalic. EYES: Pupils equal round and reactive. Extraocular motions intact. No scleral icterus. No injection or drainage. ENT: Nose without bleeding, purulent drainage. Throat without erythema, tonsillar hypertrophy or exudate. Airway patent. NECK: Trachea midline. Non tender CARDIOVASCULAR: Regular rate and rhythm without murmurs, gallops, or rubs. RESPIRATORY: Clear to auscultation. Breath sounds equal bilaterally. No wheezes, rales, or rhonchi.? GASTROINTESTINAL: Abdomen soft, mild generalized tenderness, nondistended .?Discovered to baseball bruised scar tissue to either side on umbilics -the only 2 areas where the pt has been injecting insulin. Bowel sounds present in all 4 quadrants EXTREMITIES: No edema or joint tenderness. BACK: Nontender without deformity or crepitance. No flank tenderness. NEURO: AOx3. SKIN: No rash or erythema of visible areas Objective Labs Result Diagrams: 05/19/22 17:50 05/19/22 23:08 Labs: Laboratory Results - last 24 hr 05/19/22 05/19/22 05/19/22 17:50 17:50 17:50 WBC 13.0 H RBC 5.96 H Hgb 17.0 Hct 52.3 MCV 87.7 MCH 28.6 MCHC 32.6 RDW 16.5 H Plt Count 274 Neut % (Auto) Not Reportable Lymph % (Auto) Not Reportable [place] % (Auto) Not Reportable Eos % (Auto) Not Reportable Baso % (Auto) Not Reportable Lymph # (Auto) Not Reportable [place] # (Auto) Not Reportable Baso # (Auto) Not Reportable Total Counted 100 Seg Neutrophils % 66.0 Band Neutrophils % 5.0 Lymphocytes % (Manual) 19.0 L Monocytes % (Manual) 7.0 Metamyelocytes % 2.0 H Myelocytes % 1.0 H Neutrophils # (Manual) 9230 H RBC Morphology See below Anisocytosis 1+ H VBG pH VBG pCO2 VBG pO2 VBG HCO3 VBG Total CO2 VBG O2 Saturation VBG Base Excess Sodium 140 Potassium 3.8 Chloride 106 Carbon Dioxide < 5 L* BUN 7 L Creatinine 0.92 Estimated GFR > 60 BUN/Creatinine Ratio 7.6 Glucose 182 H Hemoglobin A1c Lactate Calcium 7.7 L Magnesium Total Bilirubin 0.6 AST 18 ALT 15 Alkaline Phosphatase 144 H Troponin I NT-Pro-B Natriuret Pep Total Protein 9.9 H Albumin 4.9 Globulin 5.0 H Albumin/Globulin Ratio 1.0 Amylase Lipase TSH Free T4 Urine RBC Urine WBC Ur Squamous Epith Cells Amorphous Sediment Urine Bacteria Urine Mucus Urine Yeast Ur Culture Indicated? Nasal Screen MRSA (PCR) Salicylates U Opiates 300ng/mL cut Ur Oxycodone Screen Urine Methadone Screen Ur Barbiturates Screen U Tricyclic Antidepress Ur Phencyclidine Scrn Ur Amphetamines Screen U Methamphetamines Scrn Ur MDMA Scrn (Ecstasy) U Benzodiazepines Scrn Urine Cocaine Screen U Marijuana (THC) Screen Ketones 11.61 H SARS-CoV-2 (PCR) 05/19/22 05/19/2205/19/22 17:50 17:50 17:50 WBC RBC Hgb Hct MCV MCH MCHC RDW Plt Count Neut % (Auto) Lymph % (Auto) [place] % (Auto) Eos % (Auto) Baso % (Auto) Lymph # (Auto) [place] # (Auto) Baso # (Auto) Total Counted Seg Neutrophils % Band Neutrophils % Lymphocytes % (Manual) Monocytes % (Manual) Metamyelocytes % Myelocytes % Neutrophils # (Manual) RBC Morphology Anisocytosis VBG pH VBG pCO2 VBG pO2 VBG HCO3 VBG Total CO2 VBG O2 Saturation VBG Base Excess Sodium Potassium Chloride Carbon Dioxide BUN Creatinine Estimated GFR BUN/Creatinine Ratio Glucose Hemoglobin A1c > 14.0 H Lactate Calcium Magnesium Total Bilirubin AST ALT Alkaline Phosphatase Troponin I < 0.012 NT-Pro-B Natriuret Pep Total Protein Albumin Globulin Albumin/Globulin Ratio Amylase Lipase 108 TSH Free T4 Urine RBC Urine WBC Ur Squamous Epith Cells Amorphous Sediment Urine Bacteria Urine Mucus Urine Yeast Ur Culture Indicated? Nasal Screen MRSA (PCR) Salicylates < 1.0 U Opiates 300ng/mL cut Ur Oxycodone Screen Urine Methadone Screen Ur Barbiturates Screen U Tricyclic Antidepress Ur Phencyclidine Scrn Ur Amphetamines Screen U Methamphetamines Scrn Ur MDMA Scrn (Ecstasy) U Benzodiazepines Scrn Urine Cocaine Screen U Marijuana (THC) Screen Ketones SARS-CoV-2 (PCR) 05/19/22 05/19/22 05/19/22 17:50 17:50 17:50 WBC RBC Hgb Hct MCV MCH MCHC RDW Plt Count Neut % (Auto) Lymph % (Auto) [place] % (Auto) Eos % (Auto) Baso % (Auto) Lymph # (Auto) [place] # (Auto) Baso # (Auto) Total Counted Seg Neutrophils % Band Neutrophils % Lymphocytes % (Manual) Monocytes % (Manual) Metamyelocytes % Myelocytes % Neutrophils # (Manual) RBC Morphology Anisocytosis VBG pH VBG pCO2 VBG pO2 VBG HCO3 VBG Total CO2 VBG O2 Saturation VBG Base Excess Sodium Potassium Chloride Carbon Dioxide BUN Creatinine Estimated GFR BUN/Creatinine Ratio Glucose Hemoglobin A1c Lactate 1.2 Calcium Magnesium 2.1 Total Bilirubin AST ALT Alkaline Phosphatase Troponin I NT-Pro-B Natriuret Pep 22 Total Protein Albumin Globulin Albumin/Globulin Ratio Amylase Lipase TSH Free T4 Urine RBC Urine WBC Ur Squamous Epith Cells Amorphous Sediment Urine Bacteria Urine Mucus Urine Yeast Ur Culture Indicated? Nasal Screen MRSA (PCR) Salicylates U Opiates 300ng/mL cut Ur Oxycodone Screen Urine Methadone Screen Ur Barbiturates Screen U Tricyclic Antidepress Ur Phencyclidine Scrn Ur Amphetamines Screen U Methamphetamines Scrn Ur MDMA Scrn (Ecstasy) U Benzodiazepines Scrn Urine Cocaine Screen U Marijuana (THC) Screen Ketones SARS-CoV-2 (PCR) 05/19/22 05/19/22 05/19/22 17:50 17:50 17:53 WBC RBC Hgb Hct MCV MCH MCHC RDW Plt Count Neut % (Auto) Lymph % (Auto) [place] % (Auto) Eos % (Auto) Baso % (Auto) Lymph # (Auto) [place] # (Auto) Baso # (Auto) Total Counted Seg Neutrophils % Band Neutrophils % Lymphocytes % (Manual) Monocytes % (Manual) Metamyelocytes % Myelocytes % Neutrophils # (Manual) RBC Morphology Anisocytosis VBG pH VBG pCO2 VBG pO2 VBG HCO3 VBG Total CO2 VBG O2 Saturation VBG Base Excess Sodium Potassium Chloride Carbon Dioxide BUN Creatinine Estimated GFR BUN/Creatinine Ratio Glucose Hemoglobin A1c Lactate Calcium Magnesium Total Bilirubin AST ALT Alkaline Phosphatase Troponin I NT-Pro-B Natriuret Pep Total Protein Albumin Globulin Albumin/Globulin Ratio Amylase 71 Lipase TSH 0.05 L Free T4 1.29 Urine RBC Urine WBC Ur Squamous Epith Cells Amorphous Sediment Urine Bacteria Urine Mucus Urine Yeast Ur Culture Indicated? Nasal Screen MRSA (PCR) Salicylates U Opiates 300ng/mL cut Ur Oxycodone Screen Urine Methadone Screen Ur Barbiturates Screen U Tricyclic Antidepress Ur Phencyclidine Scrn Ur Amphetamines Screen U Methamphetamines Scrn Ur MDMA Scrn (Ecstasy) U Benzodiazepines Scrn Urine Cocaine Screen U Marijuana (THC) Screen Ketones SARS-CoV-2 (PCR) Negative 05/19/22 05/19/22 05/19/22 18:02 18:10 18:10 WBC RBC Hgb Hct MCV MCH MCHC RDW Plt Count Neut % (Auto) Lymph % (Auto) [place] % (Auto) Eos % (Auto) Baso % (Auto) Lymph # (Auto) [place] # (Auto) Baso # (Auto) Total Counted Seg Neutrophils % Band Neutrophils % Lymphocytes % (Manual) Monocytes % (Manual) Metamyelocytes % Myelocytes % Neutrophils # (Manual) RBC Morphology Anisocytosis VBG pH 7.04 L* VBG pCO2 17.8 L VBG pO2 114 H VBG HCO3 5 L VBG Total CO2 5 L VBG O2 Saturation 96 H VBG Base Excess -26.0 L Sodium Potassium Chloride Carbon Dioxide BUN Creatinine Estimated GFR BUN/Creatinine Ratio Glucose Hemoglobin A1c Lactate Calcium Magnesium Total Bilirubin AST ALT Alkaline Phosphatase Troponin I NT-Pro-B Natriuret Pep Total Protein Albumin Globulin Albumin/Globulin Ratio Amylase Lipase TSH Free T4 Urine RBC 0-1/hpf Urine WBC 10-30/hpf H Ur Squamous Epith Cells 1-5 /hpf Amorphous Sediment 1+ Urine Bacteria Few (2-10) H Urine Mucus 1+ H Urine Yeast 0-1/hpf Ur Culture Indicated? Specimen cultured Nasal Screen MRSA (PCR) Salicylates U Opiates 300ng/mL cut Negative Ur Oxycodone Screen Negative Urine Methadone Screen Negative Ur Barbiturates Screen Negative U Tricyclic Antidepress Negative Ur Phencyclidine Scrn Negative Ur Amphetamines Screen Negative U Methamphetamines Scrn Negative Ur MDMA Scrn (Ecstasy) Negative U Benzodiazepines Scrn Negative Urine Cocaine Screen Negative U Marijuana (THC) Screen Negative Ketones SARS-CoV-2 (PCR) 05/19/22 05/19/22 05/20/22 23:08 23:10 00:35 WBC RBC Hgb Hct MCV MCH MCHC RDW Plt Count Neut % (Auto) Lymph % (Auto) [place] % (Auto) Eos % (Auto) Baso % (Auto) Lymph # (Auto) [place] # (Auto) Baso # (Auto) Total Counted Seg Neutrophils % Band Neutrophils % Lymphocytes % (Manual) Monocytes % (Manual) Metamyelocytes % Myelocytes % Neutrophils # (Manual) RBC Morphology Anisocytosis VBG pH 7.04 L* VBG pCO2 21.3 L VBG pO2 24 L VBG HCO3 6 L VBG Total CO2 6 L VBG O2 Saturation 23 L VBG Base Excess -25.0 L Sodium 141 Potassium 3.5 Chloride 110 H Carbon Dioxide < 5 L* BUN 7 L Creatinine 0.95 Estimated GFR > 60 BUN/Creatinine Ratio 7.4 Glucose 144 H Hemoglobin A1c Lactate Calcium 7.2 L Magnesium Total Bilirubin AST ALT Alkaline Phosphatase Troponin I NT-Pro-B Natriuret Pep Total Protein Albumin Globulin Albumin/Globulin Ratio Amylase Lipase TSH Free T4 Urine RBC Urine WBC Ur Squamous Epith Cells Amorphous Sediment Urine Bacteria Urine Mucus Urine Yeast Ur Culture Indicated? Nasal Screen MRSA (PCR) Negative for mrsa Salicylates U Opiates 300ng/mL cut Ur Oxycodone Screen Urine Methadone Screen Ur Barbiturates Screen U Tricyclic Antidepress Ur Phencyclidine Scrn Ur Amphetamines Screen U Methamphetamines Scrn Ur MDMA Scrn (Ecstasy) U Benzodiazepines Scrn Urine Cocaine Screen U Marijuana (THC) Screen Ketones SARS-CoV-2 (PCR) Assessment & Plan Assessment & Plan narrative: he patient is a 27-year-old [place] male with a history of diabetes who presents with 1 days of acute illness that has been worsening.? Patient in diabetic ketoacidosis with UTI. 1. Acute diabetic ketoacidosis, with anion gap, acute, in the setting of i nsulin-dependent type 2 diabetes, acute on chronic, present on admission Patient has been injecting insulin in the 2 same areas on abd, into heavily scar tissue, resulting in impaired absorption of insulin, Pt education provided regarding injecting. -Insulin dosage will need to re-evaluated as he is likely to require less. -differential alcoholic ketoacidosis, starvation ketosis, toxic metabolic encephalopathy, anion gap acidosis, metformin induced lactic acidosis --goal to correct estimated deficits within 24 hours BS <200, Ph>7.3, HC03>18 -monitor for heart failure, cerebral edema, or arrhythmias (prolonged QT- warning), hypoxemia, noncardiogenic pulmonary edema, rhabdomyolysis, metabolic myopathy. -can continue fluid rehydration:DKA/insulin drip protocol: LR @100, Once BS 200- 150 ,change to D5LR @150cc/HR -U/A, Lipase, Troponin, (BNP Q4hrs while on drip), MagA1C -Tele ICU consult. -Ordered that pt have a diet: fluids progress as tolerated to Carb while on the drip.? -Once Blood sugar 200 or below give Initial Lantus 30units loading dose early on drip to help closing of the gap, and not require bridging towards the end of the drip.? ? -Stop drip Once anion gap is closed (GAP <12) -Once pt off drip-restart Lantus 30nits BID - Strict input and output monitoring Q shift, blood sugar checks Q 1-2 hours per protocol, continue to monitor blood sugars a.c. and HS once off drip (BS 150- 200, use sliding med. dose).? -monitor for potassium, potassium less than <4.0, hold insulin and replace with K rider replacement. -Daily weight check, neuro check x1 and as needed, monitor for fluid overload. -monitor for heart failure, cerebral edema, or arrhythmias (prolonged QT-warnin g) -labs ordered in a.m. ketones, lactate, phosphorus, Mag, repeat VBG, TSH, amylase, lipase, osmolality, salicylate -Blood cultures pending 2. UTI, acute, present on admission -Rocephin initiated in ED, continue 1 g Q 24 hours -urine culture pending 3. Essential hypertension, chronic, present on admission, stable. -will continue patient's home regimen of lisinopril 20 mg daily when taking PO's . 4. Morbid obesity, present on admission, active - BMI 44.8 BMI on previous admission 06/14/2019 was 58.1 -dietitian to consult. Code status: Full Surrogate decision maker: Hiral CLINE PCR: Negative DVT/VTE prophylaxis: Lovenox 40 and SCDs Disposition: Patient admitted to ICU observation expected length of stay less than 2 midnights. The patient is admitted to the hospital related to multifactorial etiology diabetic ketoacidosis including uti I have utilized all available immediate resources to obtain, update, or review the patient's current medications. I confirmed that the patient's advanced care plan is present, Code status is documented and/or surrogate decision maker is listed in the patient's medical record. Time Spent With Patient Critical Care time: I spent a total of [] minutes of critical care time on this patient's care today; this time is exclusive of procedural time.
[2022-05-20 05:48] LABS: Alanine Aminotransferase 11 IU/L (<50); Albumin 3.9 g/dL (3.5-5.0); Alkaline Phosphatase 97 U/L (38-126); Aspartate Aminotransferase 14 IU/L (17-59); BUN Creatinine Ratio 10.9 (6-22); Bilirubin Total 0.5 mg/dL (0.2-1.3); Blood Urea Nitrogen 11 mg/dL (9-20); Calcium 7.2 mg/dL (8.4-10.2); Chloride 111 mmol/L (98-107); Estimated Glomerular Filt Rate > 60 mL/min (>60); Globulin 3.9 g/dL (1.7-4.1); Glucose 161 mg/dL (70-100); HEMOLYSIS < 15 (0-50); Potassium 3.4 mmol/L (3.4-5.1); Sodium 138 mmol/L (137-145); Total Protein 7.8 g/dL (6.3-8.2)
[2022-05-20 05:50] LABS: Ketones (Beta-Hydroxybutyrate) 7.05 mmol/L (<0.27)
[2022-05-20 05:54] LABS: Carbon Dioxide 6 mmol/L (22-32)
[2022-05-20 05:57] LABS: Hematocrit 45.7 % (41-53); Hemoglobin 15.2 g/dL (13.5-17.5); Mean Corpuscular HGB Conc 33.2 % (30-36); Mean Corpuscular Hemoglobin 28.8 PG (26-34); Mean Corpuscular Volume 86.5 fL (80-100); Platelet Count 206 X10^3/uL (150-400); Red Blood Cell Count 5.28 X10^6/uL (4.5-5.9); Red Cell Distribution Width 16.8 % (11.6-14.8); White Blood Cell Count 9.3 X10^3/uL (4.5-11.0)
[2022-05-20 06:08] LABS: HCO3 VBG 7 mmol/L (23-28); Oxygen Saturation VBG 89 % (70-75); PCO2 VBG 18.7 mmHg (45-50); PO2 VBG 69 mmHg (35-45); Total CO2 VBG 7 mmol/L (24-29)
[2022-05-20 06:09] LABS: pH VBG 7.17 (7.33-7.43)
[2022-05-20 06:25] LABS: Add Manual Diff / Slide Review YES
[2022-05-20 07:18] LABS: Nucleated Red Blood Cells 1 #/Diff
[2022-05-20 07:19] LABS: Neutrophils Absolute Manual 6324 /uL (3000-5900); RBC Morphology Norm; Total Cells Counted 100
[2022-05-20] MEDS: INSULIN DRIP PREMIX 100 UNIT/100 ML PLAST..BAG 7.7 UNIT IV (07:49)
[2022-05-20] MEDS: LACTATED RINGERS 1,000 ML 1000 ML IV ×5 (08:02→11:20)
[2022-05-20] MEDS: cefTRIAXone 1,000 MG in SODIUM CHLORIDE 0.9% 100 ML 200 MG IV (09:22)
[2022-05-20] MEDS: ENOXAPARIN 40 MG/0.4 ML SYRINGE SUBCUT ×2 (09:25→20:40)
[2022-05-20] MEDS: KETOROLAC 30 MG/ML VIAL 15 MG IV (10:34)
--- NOTE | 2022-05-20 10:46 | PM.ICURNDS ---
- :: This patient was seen via real time interactive two-way audiovisual telecommunication. Patient seems ot be improving BP and mental status improved form early AM./ Will need more IVF resuscitaiton - given 2L LR bolus - will need additional IVF. KCL added to d5w and will need KCL bolus as well. trend bmp oitherwise and can adat if he is not nauseated.
[2022-05-20] MEDS: DEXTROSE 5%-0.45NS W/KCL 20MEQ 1,000 ML 100 MEQ IV ×2 (12:01→21:55)
--- NOTE | 2022-05-20 12:01 | CM.DANOTE ---
DCP: Case received, EMR reviewed and met with patient. Introduced self and role. Was able to obtain some information from patient regarding his baseline activity status prior to hospitalization, as well as his current living situation. DCP assessment completed with information currently available. Patient is a 27 year old male who admitted yesterday evening to the care of the hospitalist team. PCP: Dr. Coles. Payer: confirmed: Medicaid/[facility]. Patient came to the hospital via private vehicle secondary to having fatigue, shortness of breath. Patient has history of type 2 diabetes, and is on insulin. Patient holds current diagnosis of acute diabetic ketoacidosis, and UTI. He is on an insulin drip. Attempted to meet with patient the first time, but was groggy. Went into his room, he was more alert, and sitting up in bed. Confirmed that he resides in [facility], with family. He does not drive, and does not use DME. Confirmed his primary care provider, stated, he has not seen him in a while. P: DCP to continue to follow. Patient should be able to go home when deemed medically stable. Alisa Hernandez RN/Educational Technology Coordinator Discharge Planning/Care Management CM Discharge Assessment Start: 05/20/22 11:56 Freq: Status: Active Protocol: Document 05/20/22 11:56 (Rec: 05/20/22 12:00 [id number]) Discharge Planning Assessment Assigned Water Well Driller Alisa Hernandez RN/Educational Technology Coordinator Advance Directives? No Advance Directives on File No History Provided By Patient,Medical Record Prior Living Arrangements House Household Members family Type of transporation used prior to Relies on Others admit Independent with ADL's Yes Is patient alert and oriented? Yes Needs Assistance With Home Chores / Shopping Caregiver for Another No Barriers to Discharge No Discharge Plan Home Transportation Arrangement Family Referrals Initiated None needed Whiteboard Updated in Patient Room with Yes name and ext. # of Water Well Driller Review Status In Process Next Review Type Continued Stay Review
--- NOTE | 2022-05-20 12:47 | PC.NURSE ---
Addendum entered by Jennifer Betancur 05/20/22 16:26: Advance diet as tolerated per surgeon. Began on clear liquid diet. Temp 100.0, cooling measures provided by removing extra clothing, bedding, provider notified. Addendum entered by Jany Vargas R.N. 05/20/22 12:58: I agree with all assessments, interventions, and documentation completed by this student Original Note: A&Ox4 with delayed speech, lethargic. Rouses to voice. Hypotensive and tachycardic, provider aware. Received orders for 4 boluses of LR. Patient remains hypotensive with MAP within range. Remains on insulin drip titrating per protocol. D51/2NS with KCL infusing as ordered. Additional K riders infusing as well. Patient able to verbalize needs. Using call light appropriately. Bed alarm active. Call light within reach. Will continue to monitor.
--- NOTE | 2022-05-20 16:29 | PC.NURSE ---
Addendum entered by Jennifer Betancur 05/20/22 18:26: 1815 N/V with 200 emesis. PRN ondansetron given per provider order. Bed locked and in lowest position, bed alarm active. Call light and phone within reach. Will continue to monitor. Addendum entered by Jany Vargas R.N. 05/20/22 17:00: I agree with all assessments and interventions of this student. Original Note: A&Ox4 with delayed speech, lethargic. Rouses to voice. Hypotensive and tachycardic, provider aware. Received orders for 4 boluses of LR. Patient remains hypotensive with MAP within range. Remains on insulin drip titrating per protocol. D51/2NS with KCL infusing as ordered. Additional K riders infusing as well. Patient able to verbalize needs. Using call light appropriately. Bed alarm active. Call light within reach. Will continue to monitor.
[2022-05-20] MEDS: INSULIN DRIP PREMIX 100 UNIT/100 ML PLAST..BAG 15.4 UNIT IV (18:02)
--- NOTE | 2022-05-20 18:45 | PM.PN.1 ---
Subjective Subjective Date Patient Seen: 05/20/22 Interval history: I saw the patient 1st thing in the morning around 730 as blood pressures continued to be low. Had a conversation with ICU nurses and also discussed with the critical care attending -aggressive IV fluid resuscitation started given hypotension. Patient blood pressures and lethargy significantly improved after the IV fluids. DKA protocol followed for further titration of the insulin. Repeat labs are pending. I called patient's mother to explain overall situation and patient critical illness. I checked on the patient multiple times during this hospital day. Patient continued to improve during this shift. Still sleepy but arousable and follows commands and able to make a reasonable conversation. Denies any specific symptoms other than feeling tired. Exam Vital Signs (past 8 hours): - 05/20/22 11:00 05/20/22 11:00 05/20/22 11:51 Pulse Rate 107 H Respiratory Rate 27 H Blood Pressure 89/50 L Pulse Oximetry 98 Oxygen Delivery Method Room Air 05/20/22 16:00 05/20/22 11:30 05/20/22 12:00 Pulse Rate 115 H Respiratory Rate 21 Blood Pressure 96/52 L Pulse Oximetry 99 Oxygen Delivery Method Room Air 05/20/22 12:00 05/20/22 12:30 05/20/22 13:00 Pulse Rate 110 H 111 H Respiratory Rate 24 25 H Blood Pressure 96/52 L Pulse Oximetry 99 98 Oxygen Delivery Method 05/20/22 13:00 05/20/22 13:30 05/20/22 14:00 Pulse Rate 106 H 111 H Respiratory Rate 27 H 26 H Blood Pressure 103/64 Pulse Oximetry 98 99 Oxygen Delivery Method 05/20/22 14:00 05/20/22 14:30 05/20/22 15:00 Pulse Rate 120 H 105 H Respiratory Rate 18 27 H Blood Pressure 130/73 Pulse Oximetry 100 99 Oxygen Delivery Method 05/20/22 15:00 05/20/22 15:30 05/20/22 16:00 Pulse Rate 116 H 120 H Respiratory Rate 18 21 Blood Pressure 94/55 L Pulse Oximetry 100 100 Oxygen Delivery Method 05/20/22 16:00 05/20/22 16:30 Pulse Rate 111 H 110 H Respiratory Rate 32 H 27 H Blood Pressure Pulse Oximetry 99 98 Oxygen Delivery Method Oxygen Delivery Method Room Air Oxygen Flow Rate 0 Narrative Exam Narrative: Morbidly obese, sleepy but arousable, follows simple commands, reasonable. Pitting pedal edema lower extremities noted. Air entry at the bases of the lungs seems to be decreased, has some crackles. Cardiovascular, pulmonary, GI, constitutional, HEENT, skin, neuro exam done, negative other than as mentioned above. Objective Labs Result Diagrams: 05/20/22 05:20 05/20/22 05:20 Labs: Laboratory Results - last 24 hr 05/19/22 05/19/22 05/19/22 17:50 17:50 17:50 WBC RBC Hgb Hct MCV MCH MCHC RDW Plt Count Neut % (Auto) Lymph % (Auto) [place] % (Auto) Eos % (Auto) Baso % (Auto) Lymph # (Auto) [place] # (Auto) Baso # (Auto) Total Counted 100 Seg Neutrophils % 66.0 Band Neutrophils % 5.0 Lymphocytes % (Manual) 19.0 L Monocytes % (Manual) 7.0 Metamyelocytes % 2.0 H Myelocytes % 1.0 H Neutrophils # (Manual) 9230 H Nucleated RBCs RBC Morphology See below Anisocytosis 1+ H VBG pH VBG pCO2 VBG pO2 VBG HCO3 VBG Total CO2 VBG O2 Saturation VBG Base Excess Sodium Potassium Chloride Carbon Dioxide BUN Creatinine Estimated GFR BUN/Creatinine Ratio Glucose Hemoglobin A1c > 14.0 H Lactate Calcium Magnesium Total Bilirubin AST ALT Alkaline Phosphatase Troponin I NT-Pro-B Natriuret Pep Total Protein Albumin Globulin Albumin/Globulin Ratio Amylase Lipase 108 TSH Free T4 Urine RBC Urine WBC Ur Squamous Epith Cells Amorphous Sediment Urine Bacteria Urine Mucus Urine Yeast Ur Culture Indicated? Nasal Screen MRSA (PCR) Salicylates U Opiates 300ng/mL cut Ur Oxycodone Screen Urine Methadone Screen Ur Barbiturates Screen U Tricyclic Antidepress Ur Phencyclidine Scrn Ur Amphetamines Screen U Methamphetamines Scrn Ur MDMA Scrn (Ecstasy) U Benzodiazepines Scrn Urine Cocaine Screen U Marijuana (THC) Screen Ketones 05/19/22 05/19/22 05/19/22 17:50 17:50 17:50 WBC RBC Hgb Hct MCV MCH MCHC RDW Plt Count Neut % (Auto) Lymph % (Auto) [place] % (Auto) Eos % (Auto) Baso % (Auto) Lymph # (Auto) [place] # (Auto) Baso # (Auto) Total Counted Seg Neutrophils % Band Neutrophils % Lymphocytes % (Manual) Monocytes % (Manual) Metamyelocytes % Myelocytes % Neutrophils # (Manual) Nucleated RBCs RBC Morphology Anisocytosis VBG pH VBG pCO2 VBG pO2 VBG HCO3 VBG Total CO2 VBG O2 Saturation VBG Base Excess Sodium Potassium Chloride Carbon Dioxide BUN Creatinine Estimated GFR BUN/Creatinine Ratio Glucose Hemoglobin A1c Lactate 1.2 Calcium Magnesium Total Bilirubin AST ALT Alkaline Phosphatase Troponin I < 0.012 NT-Pro-B Natriuret Pep 22 Total Protein Albumin Globulin Albumin/Globulin Ratio Amylase Lipase TSH Free T4 Urine RBC Urine WBC Ur Squamous Epith Cells Amorphous Sediment Urine Bacteria Urine Mucus Urine Yeast Ur Culture Indicated? Nasal Screen MRSA (PCR) Salicylates < 1.0 U Opiates 300ng/mL cut Ur Oxycodone Screen Urine Methadone Screen Ur Barbiturates Screen U Tricyclic Antidepress Ur Phencyclidine Scrn Ur Amphetamines Screen U Methamphetamines Scrn Ur MDMA Scrn (Ecstasy) U Benzodiazepines Scrn Urine Cocaine Screen U Marijuana (THC) Screen Ketones 05/19/22 05/19/22 05/19/22 17:50 17:50 17:50 WBC RBC Hgb Hct MCV MCH MCHC RDW Plt Count Neut % (Auto) Lymph % (Auto) [place] % (Auto) Eos % (Auto) Baso % (Auto) Lymph # (Auto) [place] # (Auto) Baso # (Auto) Total Counted Seg Neutrophils % Band Neutrophils % Lymphocytes % (Manual) Monocytes % (Manual) Metamyelocytes % Myelocytes % Neutrophils # (Manual) Nucleated RBCs RBC Morphology Anisocytosis VBG pH VBG pCO2 VBG pO2 VBG HCO3 VBG Total CO2 VBG O2 Saturation VBG Base Excess Sodium Potassium Chloride Carbon Dioxide BUN Creatinine Estimated GFR BUN/Creatinine Ratio Glucose Hemoglobin A1c Lactate Calcium Magnesium 2.1 Total Bilirubin AST ALT Alkaline Phosphatase Troponin I NT-Pro-B Natriuret Pep Total Protein Albumin Globulin Albumin/Globulin Ratio Amylase 71 Lipase TSH 0.05 L Free T4 1.29 Urine RBC Urine WBC Ur Squamous Epith Cells Amorphous Sediment Urine Bacteria Urine Mucus Urine Yeast Ur Culture Indicated? Nasal Screen MRSA (PCR) Salicylates U Opiates 300ng/mL cut Ur Oxycodone Screen Urine Methadone Screen Ur Barbiturates Screen U Tricyclic Antidepress Ur Phencyclidine Scrn Ur Amphetamines Screen U Methamphetamines Scrn Ur MDMA Scrn (Ecstasy) U Benzodiazepines Scrn Urine Cocaine Screen U Marijuana (THC) Screen Ketones 05/19/22 05/19/22 05/19/22 18:10 18:10 23:08 WBC RBC Hgb Hct MCV MCH MCHC RDW Plt Count Neut % (Auto) Lymph % (Auto) [place] % (Auto) Eos % (Auto) Baso % (Auto) Lymph # (Auto) [place] # (Auto) Baso # (Auto) Total Counted Seg Neutrophils % Band Neutrophils % Lymphocytes % (Manual) Monocytes % (Manual) Metamyelocytes % Myelocytes % Neutrophils # (Manual) Nucleated RBCs RBC Morphology Anisocytosis VBG pH VBG pCO2 VBG pO2 VBG HCO3 VBG Total CO2 VBG O2 Saturation VBG Base Excess Sodium 141 Potassium 3.5 Chloride 110 H Carbon Dioxide < 5 L* BUN 7 L Creatinine 0.95 Estimated GFR > 60 BUN/Creatinine Ratio 7.4 Glucose 144 H Hemoglobin A1c Lactate Calcium 7.2 L Magnesium Total Bilirubin AST ALT Alkaline Phosphatase Troponin I NT-Pro-B Natriuret Pep Total Protein Albumin Globulin Albumin/Globulin Ratio Amylase Lipase TSH Free T4 Urine RBC 0-1/hpf Urine WBC 10-30/hpf H Ur Squamous Epith Cells 1-5 /hpf Amorphous Sediment 1+ Urine Bacteria Few (2-10) H Urine Mucus 1+ H Urine Yeast 0-1/hpf Ur Culture Indicated? Specimen cultured Nasal Screen MRSA (PCR) Salicylates U Opiates 300ng/mL cut Negative Ur Oxycodone Screen Negative Urine Methadone Screen Negative Ur Barbiturates Screen Negative U Tricyclic Antidepress Negative Ur Phencyclidine Scrn Negative Ur Amphetamines Screen Negative U Methamphetamines Scrn Negative Ur MDMA Scrn (Ecstasy) Negative U Benzodiazepines Scrn Negative Urine Cocaine Screen Negative U Marijuana (THC) Screen Negative Ketones 05/19/22 05/20/22 05/20/22 23:10 00:35 05:20 WBC 9.3 RBC 5.28 Hgb 15.2 Hct 45.7 MCV 86.5 MCH 28.8 MCHC 33.2 RDW 16.8 H Plt Count 206 Neut % (Auto) Not Reportable Lymph % (Auto) Not Reportable [place] % (Auto) Not Reportable Eos % (Auto) Not Reportable Baso % (Auto) Not Reportable Lymph # (Auto) Not Reportable [place] # (Auto) Not Reportable Baso # (Auto) Not Reportable Total Counted 100 Seg Neutrophils % 66.0 Band Neutrophils % 2.0 L Lymphocytes % (Manual) 30.0 Monocytes % (Manual) 1.0 L Metamyelocytes % 1.0 H Myelocytes % Neutrophils # (Manual) 6324 H Nucleated RBCs 1 H RBC Morphology Norm Anisocytosis VBG pH 7.04 L* VBG pCO2 21.3 L VBG pO2 24 L VBG HCO3 6 L VBG Total CO2 6 L VBG O2 Saturation 23 L VBG Base Excess -25.0 L Sodium Potassium Chloride Carbon Dioxide BUN Creatinine Estimated GFR BUN/Creatinine Ratio Glucose Hemoglobin A1c Lactate Calcium Magnesium Total Bilirubin AST ALT Alkaline Phosphatase Troponin I NT-Pro-B Natriuret Pep Total Protein Albumin Globulin Albumin/Globulin Ratio Amylase Lipase TSH Free T4 Urine RBC Urine WBC Ur Squamous Epith Cells Amorphous Sediment Urine Bacteria Urine Mucus Urine Yeast Ur Culture Indicated? Nasal Screen MRSA (PCR) Negative for mrsa Salicylates U Opiates 300ng/mL cut Ur Oxycodone Screen Urine Methadone Screen Ur Barbiturates Screen U Tricyclic Antidepress Ur Phencyclidine Scrn Ur Amphetamines Screen U Methamphetamines Scrn Ur MDMA Scrn (Ecstasy) U Benzodiazepines Scrn Urine Cocaine Screen U Marijuana (THC) Screen Ketones 05/20/22 05/20/22 05:20 05:30 WBC RBC Hgb Hct MCV MCH MCHC RDW Plt Count Neut % (Auto) Lymph % (Auto) [place] % (Auto) Eos % (Auto) Baso % (Auto) Lymph # (Auto) [place] # (Auto) Baso # (Auto) Total Counted Seg Neutrophils % Band Neutrophils % Lymphocytes % (Manual) Monocytes % (Manual) Metamyelocytes % Myelocytes % Neutrophils # (Manual) Nucleated RBCs RBC Morphology Anisocytosis VBG pH 7.17 L* VBG pCO2 18.7 L VBG pO2 69 H VBG HCO3 7 L VBG Total CO2 7 L VBG O2 Saturation 89 H VBG Base Excess -22.0 L Sodium 138 Potassium 3.4 Chloride 111 H Carbon Dioxide 6 L* BUN 11 Creatinine 1.01 Estimated GFR > 60 BUN/Creatinine Ratio 10.9 Glucose 161 H Hemoglobin A1c Lactate Calcium 7.2 L Magnesium Total Bilirubin 0.5 AST 14 L ALT 11 Alkaline Phosphatase 97 Troponin I NT-Pro-B Natriuret Pep Total Protein 7.8 Albumin 3.9 Globulin 3.9 Albumin/Globulin Ratio 1.0 Amylase Lipase TSH Free T4 Urine RBC Urine WBC Ur Squamous Epith Cells Amorphous Sediment Urine Bacteria Urine Mucus Urine Yeast Ur Culture Indicated? Nasal Screen MRSA (PCR) Salicylates U Opiates 300ng/mL cut Ur Oxycodone Screen Urine Methadone Screen Ur Barbiturates Screen U Tricyclic Antidepress Ur Phencyclidine Scrn Ur Amphetamines Screen U Methamphetamines Scrn Ur MDMA Scrn (Ecstasy) U Benzodiazepines Scrn Urine Cocaine Screen U Marijuana (THC) Screen Ketones 7.05 H PFSH Medical History Acute pancreatitis Diabetes mellitus DKA (diabetic ketoacidoses) Pancreatic pseudocyst Surgical History History of tonsillectomy No pertinent past surgical history Family History Father Diabetes mellitus Mother Diabetes mellitus Brother No known problems Sister No known problems Social History household members: family Smoking Status: Never smoker alcohol intake: never Assessment & Plan Assessment & Plan narrative: DKA most likely secondary to noncompliance no obvious source of infection at this time -improved with IV fluids, continue close monitoring, DKA protocol, follow up labs Poorly controlled insulin-dependent type 2 diabetes mellitus, noncompliance with the diet and medications -extensive counseling provided SCDs for DVT prophylaxis, ppi for GI prophylaxis Patient is full code, overall prognosis is guarded and carefully explained to the patient and also called his mother to explain the critical situation. Time Spent With Patient Critical Care time: I spent a total of [] minutes of critical care time on this patient's care today; this time is exclusive of procedural time.
[2022-05-20 19:19] LABS: BUN Creatinine Ratio 11.4 (6-22); Blood Urea Nitrogen 8 mg/dL (9-20); Calcium 7.8 mg/dL (8.4-10.2); Carbon Dioxide 12 mmol/L (22-32); Chloride 113 mmol/L (98-107); Estimated Glomerular Filt Rate > 60 mL/min (>60); Glucose 126 mg/dL (70-100); HEMOLYSIS < 15 (0-50); Potassium 3.1 mmol/L (3.4-5.1); Sodium 138 mmol/L (137-145)
[2022-05-20] MEDS: TRAMADOL 50 MG TABLET PO (19:36)
[2022-05-20] MEDS: METOCLOPRAMIDE 10 MG/2 ML INJ IV (20:40)
[2022-05-20] MEDS: POTASSIUM CHLORIDE 20 MEQ TAB 40 MEQ PO (20:40)
--- NOTE | 2022-05-20 21:06 | PM.ICURNDS ---
- :: This patient was seen via real time interactive two-way audiovisual telecommunication. Patient recieved multiple IVF boluses with imporvement in bicarb. Crrently overall imrpoving, with mentla status closer to baseline. Remains on insuling gtt and d5/12ns with KCL . received k riders and will need to monitos BMP q4 hours
[2022-05-20] MEDS: DEXTROSE 10 % IN WATER 1,000 ML 154 ML IV (23:39)
[2022-05-21] VITALS (36 sets, daily range): BP systolic 102–139; BP diastolic 60–79; PULSE 97–129; RESP 18–33; TEMP 36.7–37.4; O2SAT 98–100
[2022-05-21 00:01] LABS: Magnesium 2.1 mg/dL (1.6-2.3)
[2022-05-21 00:02] LABS: BUN Creatinine Ratio 9.2 (6-22); Blood Urea Nitrogen 6 mg/dL (9-20); Calcium 7.8 mg/dL (8.4-10.2); Carbon Dioxide 13 mmol/L (22-32); Chloride 112 mmol/L (98-107); Estimated Glomerular Filt Rate > 60 mL/min (>60); Glucose 126 mg/dL (70-100); HEMOLYSIS 69 (0-50); Potassium 3.8 mmol/L (3.4-5.1); Sodium 139 mmol/L (137-145)
[2022-05-21 00:23] LABS: HCO3 VBG 15 mmol/L (23-28); PCO2 VBG 31.7 mmHg (45-50); PO2 VBG 88 mmHg (35-45); Total CO2 VBG 16 mmol/L (24-29)
[2022-05-21 00:24] LABS: Oxygen Saturation VBG 96 % (70-75)
[2022-05-21 00:25] LABS: pH VBG 7.28 (7.33-7.43)
[2022-05-21] MEDS: DEXTROSE 5%-0.45NS W/KCL 20MEQ 1,000 ML 231 MEQ IV (03:51)
[2022-05-21 04:43] LABS: Add Manual Diff / Slide Review NO; Basophils Absolute Auto 100 /uL (0-100); Basophils Percent Auto 1.1 % (0-2); Eosinophils Absolute Auto 0 /uL (0-450); Eosinophils Percent Auto 0.4 % (2-4); Hematocrit 39.8 % (41-53); Hemoglobin 13.5 g/dL (13.5-17.5); Lymphocytes Absolute Auto 1500 /uL (1100-4500); Lymphocytes Percent Auto 26.5 % (25-40); Mean Corpuscular HGB Conc 33.8 % (30-36); Mean Corpuscular Hemoglobin 28.9 PG (26-34); Mean Corpuscular Volume 85.5 fL (80-100); Monocytes Absolute Auto 500 /uL (0-900); Monocytes Percent Auto 9.1 % (3-14); Neutrophils Absolute Auto 3700 /uL (1500-7000); Neutrophils Percent Auto 62.9 % (50-75); Platelet Count 162 X10^3/uL (150-400); Red Blood Cell Count 4.66 X10^6/uL (4.5-5.9); Red Cell Distribution Width 16.7 % (11.6-14.8); White Blood Cell Count 5.8 X10^3/uL (4.5-11.0)
[2022-05-21 05:10] LABS: Alanine Aminotransferase 9 IU/L (<50); Albumin 3.2 g/dL (3.5-5.0); Albumin Globulin Ratio 0.9 (1.0-2.8); Alkaline Phosphatase 81 U/L (38-126); Aspartate Aminotransferase 15 IU/L (17-59); BUN Creatinine Ratio 7.1 (6-22); Bilirubin Total 0.5 mg/dL (0.2-1.3); Blood Urea Nitrogen 4 mg/dL (9-20); Calcium 7.8 mg/dL (8.4-10.2); Carbon Dioxide 13 mmol/L (22-32); Chloride 112 mmol/L (98-107); Estimated Glomerular Filt Rate > 60 mL/min (>60); Globulin 3.5 g/dL (1.7-4.1); Glucose 151 mg/dL (70-100); HEMOLYSIS 21 (0-50); Potassium 3.3 mmol/L (3.4-5.1); Sodium 138 mmol/L (137-145); Total Protein 6.7 g/dL (6.3-8.2)
[2022-05-21] MEDS: POTASSIUM CHLORIDE IN WATER 10 MEQ/100 ML PIGGYBACK 100 MEQ IV ×2 (06:15→07:22)
--- NOTE | 2022-05-21 07:13 | DI.RAD.S_ITS ---
PROCEDURE: XR CHEST 1V INDICATIONS: F/u on pulmonary edema at time of presentation TECHNIQUE: One view of the chest was acquired. COMPARISON: [facility], CR, XR ACUTE ABDOMEN SERIES, 05/19/2022, 18:18. [facility], CR, XR CHEST 1V, 01/06/2020, 1:24. [facility], CR, XR CHEST 1V, 09/03/2019, 18:37. FINDINGS: Surgical changes and devices: None. Lungs and pleura: Lung volumes are low. No dense consolidation or pleural effusion. Mediastinum: Borderline cardiomegaly. Bones and chest wall: No suspicious bony lesions. Overlying soft tissues appear unremarkable. IMPRESSION: No acute radiographic abnormality. No overt signs of edema. No significant effusion. Dictated by: Corby Best M.D. on 05/21/2022 at 7:44 Approved by: Corby Best M.D. on 05/21/2022 at 7:46
[2022-05-21] MEDS: POTASSIUM CHLORIDE 20 MEQ TAB 40 MEQ PO (07:23)
[2022-05-21] MEDS: POTASSIUM CHLORIDE 20 MEQ TAB PO (07:27)
--- NOTE | 2022-05-21 08:07 | PM.PN.EICU ---
Subjective Subjective IF CAMERA ACTIVATED, patient seen via real-time interactive audiovisual communication: Camera activated Consent obtained for tele-cardiovascular surgical tech care: Yes Patient Location: ICU Provider location (State): [place] Other participants/roles: RN Interval history: Patient Summary: 27 yo man with PMH of IDDM presented 05/19/22 with abd pain, nuasea, and vomitting and found to be in DKA and with UTI. Pt. given IVF and started in insulin drip and Ceftriaxone. Recent Events: -AG is 13, HCO3 13, K is 3.3 -Pt. still on insulin drip at 7 units/hr but he is also still on D5 1/2 NS at 100 cc/hr, BG about 150s Subjective: Pt. reports his sob and abd pain is gone and that his nausea has improved and is only there when he eats. Pt. currently on clear liquid diet Current Medications Current Medications Medications: Home Medications blood-glucose meter (Blood Glucose Monitoring kit) #1 ea 06/15/19 [Rx Confirmed 05/20/22] glucose 4 gram chewable tablet 4 gram PO Q15M PRN hypoglycemia #30 tabs 06/15/19 [Rx Confirmed 05/20/22] metformin 750 mg tablet,extended release 24 hr 1,500 mg PO BID 09/01/19 [History Confirmed 05/20/22] Jardiance 25 mg PO DAILY 05/20/22 [History Confirmed 05/20/22] Visit Medications (administered) Generic Name Dose Route Start Last Admin Trade Name Freq PRN Reason Stop Dose Admin Acetaminophen 650 mg 05/20/22 03:56 05/20/22 04:33 Acetaminophen 650 Mg Supp DC 650 mg Q6HR PRN Administration Fever/Mild Pain (1-3) Enoxaparin Sodium 40 mg 05/20/22 09:00 05/20/22 20:40 Enoxaparin 40 Mg/0.4 Ml Syringe SUBCUT 40 mg BID PAM Administration INSULIN DRIP PREMIX 100 unit in 100 mls @ 6 mls/hr 05/19/22 19:00 05/21/22 07:59 Myxredlin Drip Premix IV 6.7 ml/hr TITRATE PAM 6.7 mls/hr Titration Protocol Ceftriaxone Sodium 1,000 mg/ 100 mls @ 200 mls/hr 05/20/22 09:00 05/20/22 10:13 Sodium Chloride IV Infused Q24H PAM Infusion Dextrose 1,000 mls @ 0 mls/hr 05/20/22 23:30 05/21/22 00:45 D10w IV 0 mls/hr CONT PAM Infusion Per Protocol POTASSIUM CHLORIDE IN WATER 10 meq in 100 mls @ 100 mls/hr 05/21/22 06:00 05/21/22 07:22 Potassium Cl 10 Meq/100 Ml Della IV 05/21/22 09:59 100 mls/hr Q1H PAM Administration Insulin Glargine 30 unit 05/19/22 20:21 05/19/22 22:36 Insulin Glargine 100 Unit/Ml 3ml Pen SUBCUT 30 unit BEDTIME PRN Administration Blood Sugar - High Ketorolac Tromethamine 15 mg 05/19/22 20:00 05/20/22 10:34 Ketorolac 30 Mg/Ml Vial IV 05/22/22 19:59 15 mg Q6H PRN Administration Pain, Moderate (1-10) Lisinopril 10 mg 05/19/22 21:17 05/20/22 09:15 Lisinopril 10 Mg Tablet PO Not Given DAILY PAM Metoclopramide HCl 10 mg 05/20/22 19:52 05/20/22 20:40 Metoclopramide 10 Mg/2 Ml Inj IV 10 mg Q6HR PRN Administration Nausea And Vomiting Metoprolol Tartrate 5 mg 05/19/22 23:29 05/20/22 02:35 Metoprolol Tartrate 5 Mg/5 Ml Inj IV 05/21/22 23:31 5 mg Q10MIN PRN Administration start 2.5mg Ondansetron HCl 4 mg 05/19/22 20:05 05/20/22 18:19 Ondansetron 4 Mg/2 Ml Inj IV 4 mg Q4HR PRN Administration Nausea And Vomiting Tramadol HCl 50 mg 05/19/22 20:00 05/20/22 19:36 Tramadol 50 Mg Tablet PO 50 mg Q4H PRN Administration Pain, Moderate (1-10) Objective Labs Result Diagrams: 05/21/22 04:35 05/21/22 04:35 Labs: Laboratory Results - last 24 hr 05/20/22 05/20/22 05/20/22 18:59 23:34 23:34 WBC RBC Hgb Hct MCV MCH MCHC RDW Plt Count Neut % (Auto) Lymph % (Auto) [place] % (Auto) Eos % (Auto) Baso % (Auto) Neut # (Auto) Lymph # (Auto) [place] # (Auto) Eos # (Auto) Baso # (Auto) VBG pH VBG pCO2 VBG pO2 VBG HCO3 VBG Total CO2 VBG O2 Saturation VBG Base Excess Sodium 138 139 Potassium 3.1 L 3.8 Chloride 113 H 112 H Carbon Dioxide 12 L 13 L BUN 8 L 6 L Creatinine 0.70 0.65 L Estimated GFR > 60 > 60 BUN/Creatinine Ratio 11.4 9.2 Glucose 126 H 126 H Calcium 7.8 L 7.8 L Magnesium 2.1 Total Bilirubin AST ALT Alkaline Phosphatase Total Protein Albumin Globulin Albumin/Globulin Ratio 05/20/22 05/21/22 05/21/22 23:45 04:35 04:35 WBC 5.8 RBC 4.66 Hgb 13.5 Hct 39.8 L MCV 85.5 MCH 28.9 MCHC 33.8 RDW 16.7 H Plt Count 162 Neut % (Auto) 62.9 Lymph % (Auto) 26.5 [place] % (Auto) 9.1 Eos % (Auto) 0.4 L Baso % (Auto) 1.1 Neut # (Auto) 3700 Lymph # (Auto) 1500 [place] # (Auto) 500 Eos # (Auto) 0 Baso # (Auto) 100 VBG pH 7.28 L VBG pCO2 31.7 L VBG pO2 88 H VBG HCO3 15 L VBG Total CO2 16 L VBG O2 Saturation 96 H VBG Base Excess -12.0 L Sodium 138 Potassium 3.3 L Chloride 112 H Carbon Dioxide 13 L BUN 4 L Creatinine 0.56 L Estimated GFR > 60 BUN/Creatinine Ratio 7.1 Glucose 151 H Calcium 7.8 L Magnesium Total Bilirubin 0.5 AST 15 L ALT 9 Alkaline Phosphatase 81 Total Protein 6.7 Albumin 3.2 L Globulin 3.5 Albumin/Globulin Ratio 0.9 L Exam Vital Signs (past 8 hours): - 05/21/22 04:00 05/21/22 00:30 05/21/22 01:00 Temperature Pulse Rate 106 H Respiratory Rate 27 H Blood Pressure 113/65 Pulse Oximetry 98 Oxygen Delivery Method Room Air 05/21/22 01:00 05/21/22 01:30 05/21/22 02:00 Temperature Pulse Rate 101 H 105 H Respiratory Rate 24 26 H Blood Pressure 102/60 Pulse Oximetry 99 98 Oxygen Delivery Method 05/21/22 02:00 05/21/22 02:30 05/21/22 03:00 Temperature Pulse Rate 102 H 103 H Respiratory Rate 25 H 25 H Blood Pressure 108/72 Pulse Oximetry 98 98 Oxygen Delivery Method 05/21/22 03:00 05/21/22 03:30 05/21/22 04:00 Temperature Pulse Rate 105 H 106 H Respiratory Rate 21 19 Blood Pressure 112/68 Pulse Oximetry 100 100 Oxygen Delivery Method 05/21/22 04:00 05/21/22 04:30 05/21/22 05:00 Temperature 98.0 F Pulse Rate 103 H 103 H Respiratory Rate 25 H 26 H Blood Pressure 113/66 Pulse Oximetry 98 98 Oxygen Delivery Method 05/21/22 05:00 05/21/22 05:30 05/21/22 06:00 Temperature Pulse Rate 106 H 100 H Respiratory Rate 27 H 25 H Blood Pressure 112/63 Pulse Oximetry 99 98 Oxygen Delivery Method 05/21/22 06:00 05/21/22 06:30 05/21/22 07:00 Temperature Pulse Rate 97 H 99 H Respiratory Rate 24 25 H Blood Pressure 106/60 Pulse Oximetry 99 98 Oxygen Delivery Method 05/21/22 07:00 05/21/22 07:30 Temperature Pulse Rate 97 H 108 H Respiratory Rate 23 20 Blood Pressure Pulse Oximetry 99 100 Oxygen Delivery Method Oxygen Delivery Method Room Air Oxygen Flow Rate 0 Narrative Exam Narrative: Patient seen over 2 eay audio visual systemt. Pt. is sitting up in bed, alert, and answering questions appropriately Assessment & Plan Assessment & Plan narrative: Assessment DKA-resolved Hypercholemic metabolic acidosis UTI Plan -stop D5 1/2 NS -patient reports that at home he takes Humulin 115 units around 8:30 am and Humulin 90 units at around 5:30 pm -will start him on 70% of his home regimen (as his PO intake is not at baseline yet) so will do Humulin 80 AC breakfast 8:30 am and Humulin 60 units AC dinner 17:30 -stop insulin drip -continue to monitor BG q1H for now till it looks like patient's BG is stable -continue Ceftriaxone for now for UTI -may consider bicarb drip if hypercholremic metabolic acidosis does not improve on its own PPX: lovenox CCT spent 50 min Time Spent With Patient Critical Care time: I spent a total of [] minutes of critical care time on this patient's care today; this time is exclusive of procedural time.
[2022-05-21] MEDS: METOCLOPRAMIDE 10 MG/2 ML INJ IV (09:20)
[2022-05-21 09:23] LABS: BUN Creatinine Ratio 4.9 (6-22); Blood Urea Nitrogen 3 mg/dL (9-20); Calcium 7.8 mg/dL (8.4-10.2); Carbon Dioxide 16 mmol/L (22-32); Chloride 111 mmol/L (98-107); Estimated Glomerular Filt Rate > 60 mL/min (>60); Glucose 137 mg/dL (70-100); HEMOLYSIS < 15 (0-50); Potassium 3.3 mmol/L (3.4-5.1); Sodium 140 mmol/L (137-145)
[2022-05-21] MEDS: METFORMIN HCL 500 MG TABLET 1500 MG PO ×2 (09:42→16:46)
[2022-05-21] MEDS: ENOXAPARIN 40 MG/0.4 ML SYRINGE SUBCUT ×2 (09:43→20:59)
[2022-05-21] MEDS: cefTRIAXone 1,000 MG in SODIUM CHLORIDE 0.9% 100 ML 200 MG IV (09:44)
[2022-05-21] MEDS: INSULIN NPH 100 UNIT/ML VIAL 80 UNIT SUBCUT (09:45)
[2022-05-21 10:13] LABS: Magnesium 2.1 mg/dL (1.6-2.3)
[2022-05-21 14:19] LABS: HCO3 VBG 16 mmol/L (23-28); PCO2 VBG 30.8 mmHg (45-50); PO2 VBG 33 mmHg (35-45); Total CO2 VBG 17 mmol/L (24-29); pH VBG 7.31 (7.33-7.43)
[2022-05-21 14:20] LABS: Oxygen Saturation VBG 59 % (70-75)
--- NOTE | 2022-05-21 15:10 | PC.NURSE ---
Addendum entered by Jennifer Betancur 05/21/22 17:02: Diabetes education provided to patient with mother at bedside, covering blood glucose monitoring, diabetic diet, insulin injections, and hypoglycemia and hyperglycemia. Patient receptive, mother included. Patient had ability to ask questions and have answers provided. Encouraged to write down additional questions prior to discharge. Consult to greeting card writer. Will continue to monitor. Addendum entered by Jany Vargas R.N. 05/21/22 15:14: I agree with all assessments and intervention provided by this student Original Note: A&Ox4, fatigued. Patient remains tachycardic with hypotension improving. Insulin drip stopped at 0930 per tele forestry instructor. Stopped fluids, transitioned to PO medications and subq insulin. Up to chair for lunch with stand by assist. Transitioned to carb consistent diet, tolerated well. BM after lunch. Ambulated in the halls with this nurse, tolerated well. Patient able to verbalize needs, uses call light appropriate. Call light within reach, VSS, will continue to monitor.
[2022-05-21] MEDS: INSULIN REGULAR 100 UNIT/ML 3 ML VIAL SUBCUT (16:46)
[2022-05-21] MEDS: INSULIN NPH/REG 70-30 100 UNIT/ML 3ML VIAL 60 UNIT SUBCUT (16:50)
--- NOTE | 2022-05-21 17:59 | PM.PN.1 ---
Subjective Subjective Date Patient Seen: 05/21/22 Interval history: Patient looks a lot better this morning. Significantly improved. Ambulating in the room and hallways, able to take a shower by himself. Spoke to his mom and dad at bedside. Unfortunately they had to family member at this week and family is going through a lot. Patient ran out of the insulin and did not tell his mother regarding his sickness early enough. Patient tolerated diet very well. His acidosis and anion gap significantly improved. [facility] ICU is following this patient closely. Exam Vital Signs (past 8 hours): - 05/21/22 10:00 05/21/22 10:30 05/21/22 11:00 Temperature Pulse Rate 109 H 113 H 110 H Respiratory Rate 33 H 33 H 29 H Blood Pressure Pulse Oximetry 98 98 99 Oxygen Flow Rate 05/21/22 11:30 05/21/22 12:00 05/21/22 12:30 Temperature Pulse Rate 110 H 117 H 128 H Respiratory Rate 26 H 21 26 H Blood Pressure Pulse Oximetry 99 100 Oxygen Flow Rate 05/21/22 13:00 05/21/22 13:30 05/21/22 14:00 Temperature Pulse Rate 129 H 122 H 125 H Respiratory Rate 19 24 22 Blood Pressure Pulse Oximetry Oxygen Flow Rate 05/21/22 16:40 Temperature 98.9 F Pulse Rate 117 H Respiratory Rate 20 Blood Pressure 139/75 Pulse Oximetry 99 Oxygen Flow Rate 0 Oxygen Delivery Method Room Air Oxygen Flow Rate 0 Narrative Exam Narrative: Obese patient, alert, ambulating well without any difficulties, able to follow commands. Trace pedal edema. No abdominal discomfort and GI exams. Cardiovascular, pulmonary, skin, neuro, psych exam done, negative. Objective Labs Result Diagrams: 05/21/22 04:35 05/21/22 08:58 Labs: Laboratory Results - last 24 hr 05/20/22 05/20/22 05/20/22 18:59 23:34 23:34 WBC RBC Hgb Hct MCV MCH MCHC RDW Plt Count Neut % (Auto) Lymph % (Auto) [place] % (Auto) Eos % (Auto) Baso % (Auto) Neut # (Auto) Lymph # (Auto) [place] # (Auto) Eos # (Auto) Baso # (Auto) VBG pH VBG pCO2 VBG pO2 VBG HCO3 VBG Total CO2 VBG O2 Saturation VBG Base Excess Sodium 138 139 Potassium 3.1 L 3.8 Chloride 113 H 112 H Carbon Dioxide 12 L 13 L BUN 8 L 6 L Creatinine 0.70 0.65 L Estimated GFR > 60 > 60 BUN/Creatinine Ratio 11.4 9.2 Glucose 126 H 126 H Calcium 7.8 L 7.8 L Magnesium 2.1 Total Bilirubin AST ALT Alkaline Phosphatase Total Protein Albumin Globulin Albumin/Globulin Ratio 05/20/22 05/21/22 05/21/22 23:45 04:35 04:35 WBC 5.8 RBC 4.66 Hgb 13.5 Hct 39.8 L MCV 85.5 MCH 28.9 MCHC 33.8 RDW 16.7 H Plt Count 162 Neut % (Auto) 62.9 Lymph % (Auto) 26.5 [place] % (Auto) 9.1 Eos % (Auto) 0.4 L Baso % (Auto) 1.1 Neut # (Auto) 3700 Lymph # (Auto) 1500 [place] # (Auto) 500 Eos # (Auto) 0 Baso # (Auto) 100 VBG pH 7.28 L VBG pCO2 31.7 L VBG pO2 88 H VBG HCO3 15 L VBG Total CO2 16 L VBG O2 Saturation 96 H VBG Base Excess -12.0 L Sodium 138 Potassium 3.3 L Chloride 112 H Carbon Dioxide 13 L BUN 4 L Creatinine 0.56 L Estimated GFR > 60 BUN/Creatinine Ratio 7.1 Glucose 151 H Calcium 7.8 L Magnesium Total Bilirubin 0.5 AST 15 L ALT 9 Alkaline Phosphatase 81 Total Protein 6.7 Albumin 3.2 L Globulin 3.5 Albumin/Globulin Ratio 0.9 L 05/21/22 05/21/22 05/21/22 08:55 08:58 08:58 WBC RBC Hgb Hct MCV MCH MCHC RDW Plt Count Neut % (Auto) Lymph % (Auto) [place] % (Auto) Eos % (Auto) Baso % (Auto) Neut # (Auto) Lymph # (Auto) [place] # (Auto) Eos # (Auto) Baso # (Auto) VBG pH 7.31 L VBG pCO2 30.8 L VBG pO2 33 L VBG HCO3 16 L VBG Total CO2 17 L VBG O2 Saturation 59 L VBG Base Excess -11.0 L Sodium 140 Potassium 3.3 L Chloride 111 H Carbon Dioxide 16 L BUN 3 L Creatinine 0.61 L Estimated GFR > 60 BUN/Creatinine Ratio 4.9 L Glucose 137 H Calcium 7.8 L Magnesium 2.1 Total Bilirubin AST ALT Alkaline Phosphatase Total Protein Albumin Globulin Albumin/Globulin Ratio [facility] Medical History Acute pancreatitis Diabetes mellitus DKA (diabetic ketoacidoses) Pancreatic pseudocyst Surgical History History of tonsillectomy No pertinent past surgical history Family History Father Diabetes mellitus Mother Diabetes mellitus Brother No known problems Sister No known problems Social History household members: family Smoking Status: Never smoker alcohol intake: never Assessment & Plan Assessment & Plan narrative: DKA most likely secondary to noncompliance and no obvious source of infection at this time -improved with IV fluids, continue close monitoring -transition to home regimen, potential discharge in the morning, follow up labs -patient transition to 70% of his home insulin regimen today with a 80 units NPH in the morning and 60 units at night, at home patient takes 110 units in the morning and 80 units at night -from tomorrow depending on the labs and also patient oral intake consider adopting his home regimen before the discharge -follow up on morning labs for further recommendations -his urine cultures are positive for strep B but colony count is less than 100 K, I do not believe patient has UTI, Rocephin discontinued -blood culture also negative, preliminary 24 hr results Poorly controlled insulin-dependent type 2 diabetes mellitus, noncompliance with the diet and medications -extensive counseling provided -cut filer and stitching machine feeder or offbearer in the morning SCDs for DVT prophylaxis, ppi for GI prophylaxis Patient is full code Care plan discussed with the patient and family at bedside Patient is significantly improved compared to the time of admission Time Spent With Patient Critical Care time: I spent a total of [] minutes of critical care time on this patient's care today; this time is exclusive of procedural time.
[2022-05-21] MEDS: SODIUM CHLORIDE 0.9% FLUSH 10 ML IV (20:59)
[2022-05-22] VITALS (7 sets, daily range): BP systolic 120–131; BP diastolic 76–79; PULSE 102–113; RESP 14–20; TEMP 36.3–37.1; O2SAT 95–100
[2022-05-22] MEDS: TRAMADOL 50 MG TABLET PO (02:09)
[2022-05-22] MEDS: ONDANSETRON 4 MG/2 ML INJ IV ×2 (02:09→08:25)
--- NOTE | 2022-05-22 02:25 | PC.NURSE ---
Patient woke up with headache, nausea and vomitted 50ml emesis, CBG checked, 102, gave mario janak, IV Zofran, and Tramadol. HR 115.
[2022-05-22] MEDS: ACETAMINOPHEN 325 MG TABLET 975 MG PO (05:26)
[2022-05-22 05:51] LABS: Add Manual Diff / Slide Review NO; Basophils Absolute Auto 0 /uL (0-100); Basophils Percent Auto 0.5 % (0-2); Eosinophils Absolute Auto 100 /uL (0-450); Eosinophils Percent Auto 1.2 % (2-4); Hematocrit 40.9 % (41-53); Lymphocytes Absolute Auto 2100 /uL (1100-4500); Lymphocytes Percent Auto 41.2 % (25-40); Mean Corpuscular HGB Conc 34.1 % (30-36); Mean Corpuscular Hemoglobin 28.8 PG (26-34); Mean Corpuscular Volume 84.4 fL (80-100); Monocytes Absolute Auto 500 /uL (0-900); Monocytes Percent Auto 10.3 % (3-14); Neutrophils Absolute Auto 2400 /uL (1500-7000); Neutrophils Percent Auto 46.8 % (50-75); Platelet Count 163 X10^3/uL (150-400); Red Blood Cell Count 4.85 X10^6/uL (4.5-5.9); Red Cell Distribution Width 16.8 % (11.6-14.8); White Blood Cell Count 5.1 X10^3/uL (4.5-11.0)
[2022-05-22 07:05] LABS: Calcium 7.9 mg/dL (8.4-10.2); Carbon Dioxide 19 mmol/L (22-32); Chloride 106 mmol/L (98-107); Estimated Glomerular Filt Rate > 60 mL/min (>60); Glucose 146 mg/dL (70-100); HEMOLYSIS < 15 (0-50); Potassium 3.2 mmol/L (3.4-5.1); Sodium 139 mmol/L (137-145)
[2022-05-22 07:07] LABS: BUN Creatinine Ratio 4.3 (6-22); Blood Urea Nitrogen < 2 mg/dL (9-20)
[2022-05-22] MEDS: ENOXAPARIN 40 MG/0.4 ML SYRINGE SUBCUT (08:24)
[2022-05-22] MEDS: POTASSIUM CHLORIDE 20 MEQ TAB 40 MEQ PO (08:24)
[2022-05-22] MEDS: METFORMIN HCL 500 MG TABLET 1500 MG PO (08:24)
[2022-05-22] MEDS: AMOXICILLIN/CLAV 875/125 MG 1 TAB PO (08:24)
[2022-05-22] MEDS: SODIUM CHLORIDE 0.9% FLUSH 10 ML IV (08:25)
--- NOTE | 2022-05-22 10:36 | DIET.CONS ---
Addendum entered by Chelle Willis 05/22/22 10:50: Per MAR pt on 1,500mg metformin bid, previous Rx 20U glargine HS. Pt would benefit from medication optimization in addition to nutrition education. Original Note: Dietary Consultation Note Admission Date: 05/19/2022 19:54 Assessment: 27y obese ruby M admitted with DKA referred to nutrition for same. Pt with A1c >14 diagnosed c DM2 3y ago with A1cs on record as 11.8 and 12.5 indicating suboptimal management. Pt reports he met c RD at [facility] one time who taught him plate balanced eating but did not review insulin management. Pt reports sharing plate balance eating with mom, sister, and little brother as they all live together. Pt reports he does not know how to adjust his medication or support nutrient intake if sick or if skipping meal. Per nursing, pt has been injecting insulin in same two spots, concern for injecting into scar tissue or stretch dixon. Pts BG has been well managed while hospitalized at dose lower than home dose, concern for missed insulin injections. Usual Day: B: cereal c 2% milk and oj L: often skips and does chores instead D: pasta, rice, meat, veggie, soups Pt endorses polydypsia and polyuria. Pt's mom receives EBT, pt currently unemployed but not on EBT of his own. Ht: 185.42 cm Wt: 157.3 kg BMI: 44.8 Last BM: () MNA: 14 Neal Score: 23 Diet: 05/21/22 Lunch Carbohydrate Consistent Diet Diet Modifications: May Advance Diet as Tolerated: Yes Safety Tray needed?: No Carbohydrate level: Small (2 CHO) Bedtime snack: Yes Nutrition Percent Meal Consumed 100% 05/21/22 18:00 Percent Meal Consumed 75% 05/21/22 13:25 Percent Meal Consumed 50% 05/20/22 12:13 Labs: RBC 4.85 X10^6/uL (4.5-5.9) 05/22/22 05:38 Hgb 14.0 g/dL (13.5-17.5) 05/22/22 05:38 Hct 40.9 % (41-53) L 05/22/22 05:38 Creatinine 0.46 mg/dL (0.66-1.25) L 05/22/22 05:38 Hemoglobin A1c > 14.0 % (4.0-6.0) H 05/19/22 17:50 Lactate 1.2 mmol/L (0.7-2.1) 05/19/22 17:50 NT-Pro-B Natriuret Pep 22 pg/mL (<125) 05/19/22 17:50 Nutrition Diagnosis: altered nutrition related laboratory value (A1c) r/t endocrine dyfunction and undesirable food choices aeb A1c >14, prior A1c over 3y >10 indicating suboptimal management, pt drinks OJ for breakfast and reports limited knowledge on carb counting and medication management. Interventions: 1. Educated pt on liquid carbs and sugar in diet: avoiding juice intake c DM2 or limiting it to 4oz daily. Pt was suprised at this small volume. Looked at pts Body Armor Lite drink which had no added sugar. Discussed effects of OJ vs this beverage on BG. 2. Introduced pt to the idea of OP DMSE education for thorough DM education with healthy eating and medication management. Pt very interested in OP visits. RD called PCP requesting referral to OP DSME to be scheduled in early June. EER: 45-60g CHO meals, 15-30g snacks Monitoring/Evaluations: f/u as outpatient to improve pts knowledge on DM with goal of improved A1c<8. Electronically Signed by: Chelle Willis 05/22/22 10:36 Clinical Dietitian [address] [id number]
--- NOTE | 2022-05-22 12:43 | CM.DPC ---
DCP Cont: Patient is discharging home today. Called [facility] and made him a follow up for tomorrow at 1300. Updated nurse, Debora. She indicated that patient has an appointment Wed at 0900. Asked patient which appointment that he would like. Stated, he wants to continue with Wed appointment. Let Vy at [facility] know, and his follow up appointment will be Wed at 0900, instead of tomorrow. P: Patient will be discharging home today and following up with his primary care provider, Dr. Coles. Alisa Hernandez RN/Oil Furnace Installer
[2022-05-22 17:48] LABS: Osmolality, Serum 312 mOsmol/kg (275-295)
--- NOTE | 2022-05-22 18:34 | P.DS_ITS ---
History of Present Illness History of Present Illness Date Patient Seen: 05/19/22 Time Patient Seen: 20:36 Chief complaint: Not feeling well, Vomiting Narrative: Per admitting provider: Kun Samson 27-year-old male nonsmoker with history of type 2 diabetes on H umulin both in the morning and evening without any recent regimen changes, hypertension, morbid obesity presented with chief complaint of nausea, vomiting, rapid breathing and generalized abdominal pain over the course of the day.? He denies missing any doses of his medications other than this morning and denies any significant dietary indiscretions.? He started feeling poorly last night including fatigue, some shortness of breath and mild abdominal pain and presents today under the circumstances listed above.? He is had no fever chills.? Denies runny nose, sore throat or cough. Upon admit patient abdominal pain has improved he is extremely fatigued continues to be significantly tachypneic breathing in the 30s, satting at 100% on room air, is continues to be tachycardic and heart rates above 125-135. Patient currently denies chest pain, is mildly short of breath, denies fever, body aches, chills, no longer nauseated last vomited this morning has had no diarrhea since being in the hospital, denies skin infections with the exception of an infected left ingrown toenail in which he was personally cutting away in removing the nail, denies any recent illness denies any urinary frequency urgency, dysuria, denies any hematuria, denies any bowel changes, or blood in his stool, denies cough, or hematemesis. Patient's vitals at the time of admit temp 98.3?, BP 143/72, HR 126, RR 37, O2 s aturation 100% patient is struggling to sit up straight and forward to improve respiratory function. Patient's initial VBG is in ED pH 7.04, pCO2 17.8, PO2 114, HC03 5, T CO2 5, O2 saturation 96%, base excess -26, patient met SIRS criteria in the ED but has a sofa score of 0, patient's has an increased WBC 13, with a left shift neutrophils 9230, hypokalemia potassium 3.8, bicarb< 5, BUN 7, glucose 182, creatinine and GFR are normal, anion gap 30, A1c>14%, total protein 9.9, ketones 11.61, albumin 4.9, patient's urinalysis is positive for white blood cells and bacteria, calcium 7.7, alk-phos 144, patient's chest and abdominal CT demonstrate upper pulmonary vascularity possibly edema. Patient in moderate distress, admitted to the ICU for DKA secondary UTI. Discharge Providers Provider Date of admission: 05/19/22 19:54 Discharge Date: 05/22/22 Primary care physician: Arik Coles PA-C Consults: 05/19/22 20:00 Consult to Tele-diesel motor mechanic Routine Comment: Consulting Provider: Anaid Tele-intensivists Reason for consultation: Fuel Verification Technician services Has provider been notified: No 05/21/22 17:06 Consult to Dietitian, Adult Routine Comment: Reason For Exam: Diabetic education Discharge provider: James Azar MD Summary Hospital Course Discharge Diagnosis: 1. DKA, Type 2 Diabetes on insulin 2. UTI 3. Morbid obesity, BMI 45.8 Hospital Course: Mr. Samson was admitted with DKA. He improved quickly with insulin drip and he was able to be transitioned over to insulin glargine. He was noted to have possible UTI and was discharged witn antibiotics. He was also noted to have a1c >14, after discussion with him and family he admitted he ran out of insulin and he was unsure how to dose his insulin correctly. He had discussion with soldering machine operator about diabetes counselling. He was provided prescription for insulin. He was encourage to have follow up this week with his PCP and outpatient diabetes education will be continued. Exam Vital Signs (past 8 hours): Oxygen Delivery Method Room Air Oxygen Flow Rate 0 Narrative Exam Narrative: GEN: no acute distress CV: regular rate and rhythm, no murmurs PULM: clear bilaterally, no wheezes, rhonchi, rales ABD: soft, nontender, nondistended, no organomegaly EXT: warm and well perfused with no edema Objective Labs Result Diagrams: 05/22/22 05:38 05/22/22 05:38 Labs: Laboratory Results - last 24 hr 05/19/22 05/22/22 05/22/22 23:08 05:38 05:38 WBC 5.1 RBC 4.85 Hgb 14.0 Hct 40.9 L MCV 84.4 MCH 28.8 MCHC 34.1 RDW 16.8 H Plt Count 163 Neut % (Auto) 46.8 L Lymph % (Auto) 41.2 H [place] % (Auto) 10.3 Eos % (Auto) 1.2 L Baso % (Auto) 0.5 Neut # (Auto) 2400 Lymph # (Auto) 2100 [place] # (Auto) 500 Eos # (Auto) 100 Baso # (Auto) 0 Sodium 139 Potassium 3.2 L Chloride 106 Carbon Dioxide 19 L BUN < 2 L Creatinine 0.46 L Estimated GFR > 60 BUN/Creatinine Ratio 4.3 L Glucose 146 H Serum Osmolality 312 H Calcium 7.9 L PFSH Medical History Acute pancreatitis Diabetes mellitus DKA (diabetic ketoacidoses) Pancreatic pseudocyst Surgical History History of tonsillectomy No pertinent past surgical history Family History Father Diabetes mellitus Mother Diabetes mellitus Brother No known problems Sister No known problems Social History household members: family Smoking Status: Never smoker alcohol intake: never Discharge Plan Discharge Plan Patient Disposition: Home Provider Discharge Comment: Mr. Samson came in to the hospital with DKA. He improved with insulin. His blood sugar has been very out of control, he needs to follow closely with his doctor and take his insulin without missing a dose. Discharge orders & Medications Prescriptions: New amoxicillin-pot clavulanate 875-125 mg Tablet 1 tab PO BID Qty: 8 0RF Continued (DME) blood-glucose meter [Blood Glucose Monitoring] Kit See Rx Instructions .ROUTE .MEDSUPPLY Qty: 1 0RF Rx Instructions: Monitor blood glucose 3-4 times daily glucose 4 gram tablet,chewable 4 gram PO Q15M PRN (Reason: hypoglycemia) Qty: 30 0RF Label Comments: relative states does not have because needed to pay rodriguez for them and did not have at the time. 09/01/2019 Rx Instructions: until response metformin 750 mg tablet extended release 24 hr 1,500 mg PO BID Label Comments: TAKE 2 TABLETS BY MOUTH WITH EVENING MEAL Jardiance 25 mg PO DAILY Humulin R U-500 (Conc) Kwikpen 500 unit/mL (3 mL) insulin pen 115 unit SUBCUT QAM Qty: 30 0RF Humulin R U-500 (Conc) Kwikpen 500 unit/mL (3 mL) insulin pen 95 unit SUBCUT QPM Qty: 30 0RF Medication counseling provided by Pharmacist: Yes Follow up/Referrals: Arik Coles PA-C [Primary Care Provider] - (* Appointment for SundayMay 24 @ 9:00am w/ Arik Coles PA-C [phone] follow up kee within 3 days) Diet/Activity/Treatments Diet: Carb-consistent/Diabetic Visit Report/Discharge Packet Instructions: Insulin, How to Give a Subcutaneous Injection, DI for Diabetes Type 2, DI for Diabetic Ketoacidosis Discharge Data Primary Care Provider: Arik Coles
== END 2022-05-22 11:43 | disposition home or self-care (01) | DRG 638 ==
LOC: ED 18:06 → ICU 21:02 → AC 05-22 09:34 → ICU 05-22 09:34
PROVIDERS: Emergency Medicine; Family Medicine; Internal Medicine; Admitting Provider Nurse Practitioner Family; Emergency Provider Emergency Medicine; PCP Physician Assistant; Referring Provider Emergency Medicine; Visit Provider Nurse Practitioner Family
DX: E11.10 Type 2 diabetes mellitus with ketoacidosis without coma (principal); N39.0 Urinary tract infection, site not specified; Z68.41 Body mass index [BMI] 40.0-44.9, adult; E66.01 Morbid (severe) obesity due to excess calories; E11.65 Type 2 diabetes mellitus with hyperglycemia; I10 Essential (primary) hypertension; T38.3X6A Underdosing of insulin and oral hypoglycemic [antidiabetic] drugs, initial encounter; Z20.822 Contact with and (suspected) exposure to COVID-19; Z79.84 Long term (current) use of oral hypoglycemic drugs; Z79.4 Long term (current) use of insulin
CPT/HCPCS: 36415; 71045; 74022; 80048; 80053; 80305; 80329; 81003; 81015; 82009; 82150; 82805; 82962; 83036; 83605; 83690; 83735; 83880; 83930; 84439; 84443; 84484; 85007; 85025; 87040; 87077; 87086; 87147; 87635; 87797; 93005; 93010; 96365; 96375; 99284; C9803; G0480; J0696; J1650; J1885; J2405; J2765

== ENCOUNTER 2023-05-17 12:07 | Emergency (ER) | payer MEDICAID, OTHER, SELFPAY ==
[2019-09-03 18:40] VITALS: PULSE 120; RESP 24; O2SAT 97
[2022-05-19 21:00] VITALS: BMI 44.8
[2023-05-17 12:12] VITALS: BP 124/81; PULSE 113; RESP 18; TEMP 37.6; O2SAT 98; BMI 51.4
--- NOTE | 2023-05-17 12:14 | ED.UPPEXIN ---
HPI - Extremity Injury (Upper) General Chief Complaint: Wound/Laceration Stated Complaint: Left hand injury Time Seen by Provider: 05/17/23 12:14 History of Present Illness HPI narrative: 28-year-old male with history of diabetes presents by private vehicle for left thumb injury. Patient was going crabbing and sliced his hand on a crab pot. He does not think he is up-to-date on his tetanus shot. Denies numbness, weakness, other complaints. Related Data Home Medications Medication Instructions Recorded Confirmed metformin 750 mg tablet,extended 1,500 mg PO BID 09/01/19 05/20/22 release 24 hr Jardiance 25 mg PO DAILY 05/20/22 05/20/22 Previous Rx's Medication Instructions Recorded blood-glucose meter (Blood Glucose #1 ea 06/15/19 Monitoring kit) glucose 4 gram chewable tablet 4 gram PO Q15M PRN hypoglycemia 06/15/19 #30 tabs amoxicillin 875 mg-potassium 1 tab PO BID #8 tabs 05/22/22 clavulanate 125 mg tablet insulin regular hum U-500 conc 500 95 unit (0.19 mL) SUBCUT QPM #30 05/22/22 unit/mL(3 mL) subcut pen (Humulin pens R U-500 (Conc) Insulin Kwikpen) insulin regular hum U-500 conc 500 115 unit (0.23 mL) SUBCUT QAM #30 05/22/22 unit/mL(3 mL) subcut pen (Humulin pens R U-500 (Conc) Insulin Kwikpen) doxycycline hyclate 100 mg capsule 100 mg PO BID #20 caps 05/17/23 Allergies Allergy/AdvReac Type Severity Reaction Status Date / Time No Known Drug Allergies Allergy Unknown Verified 12/06/19 12:36 Review of Systems Review of Systems Narrative: Negative except as marked Patient History Medical History Acute pancreatitis Diabetes mellitus DKA (diabetic ketoacidoses) Pancreatic pseudocyst Surgical History History of tonsillectomy No pertinent past surgical history Family History Father Diabetes mellitus Mother Diabetes mellitus Brother No known problems Sister No known problems Social History household members: family Smoking Status: Never smoker alcohol intake: never Smoking Status: Never smoker alcohol intake frequency: holidays/special occasions only Substance Use Type: does not use Exam Initial Vital Signs Initial Vital Signs: Vital Signs Temperature 99.7 F H 05/17/23 12:12 Pulse Rate 113 H 05/17/23 12:12 Respiratory Rate 18 05/17/23 12:12 Blood Pressure 124/81 05/17/23 12:12 Pulse Oximetry 98 05/17/23 12:12 Oxygen Delivery Method Room Air 05/17/23 12:12 Const: Awake, alert, no acute distress, nontoxic appearing, obese Eyes: PERRL, EOMI, conjunctiva normal ENT: Atraumatic, dentition normal, mucous membranes moist Cardiac: regular rate, regular rhythm RESP: unlabored, clear bilaterally, no wheezing GI: Atraumatic, soft, nontender, nondistended, no rebound, no guarding MSK: Atraumatic, full range of motion, pulses equal, full range of motion of left thumb Skin: Warm, Dry, 4 cm linear laceration at the base of the left thumb Neuro: AO x3, CN II-XII grossly intact, moves all extremities Psych: affect normal, mood normal, not suicidal, not homicidal Procedures Laceration Repair Laceration 1: Site: hand Side (If applicable): left Size (cm): 4 Description: linear Depth: simple, single layer Local Anesthetic: lidocaine 2% Amount of anesthesia used (mL): 3 Pre-repair: irrigated extensively and cleansed with chlorhexadine (cleansed with betadine) Skin layer closed with: nylon Skin layer suture size: 4-0 Number of sutures: 6 Technique: simple, interrupted Course Course Course Narrative: Simple hand laceration. Neurovascularly intact, no evidence of tendon or vessel compromise. Repaired per procedure note. Tetanus shot updated. Wound care instructions discussed extensively at bedside with patient and family. Since patient had dirty water exposure and is a diabetic we will cover with doxycycline, which was sent to the pharmacy of choice. ED return precautions discussed at bedside. Patient expressed understanding of the plan and is in agreement at this time. All questions answered at the time of discharge. Orders Ordered: Discontinued Medications Diphtheria/Tetanus/Acell Pertussis (Tet,Diph,Pertuss(Acell),Vac/Pf 0.5 Ml Syringe) 0.5 ml IM .ONCE ONE Stop: 05/17/23 12:18 Last Admin: 05/17/23 12:24 Dose: 0.5 ml Vital Signs Vital signs: Vital Signs - 8 hr 05/17/23 12:12 Temperature 99.7 F H Pulse Rate 113 H Respiratory Rate 18 Blood Pressure 124/81 Pulse Oximetry 98 Oxygen Delivery Method Room Air Discharge Plan Departure Patient Disposition: Home Clinical Impression: Hand laceration Instructions: How to Care for a Laceration After Repair Prescriptions: New doxycycline hyclate 100 mg capsule 100 mg PO BID Qty: 20 0RF No Action (DME) blood-glucose meter [Blood Glucose Monitoring] Kit See Rx Instructions .ROUTE .MEDSUPPLY Qty: 1 0RF Rx Instructions: Monitor blood glucose 3-4 times daily glucose 4 gram tablet,chewable 4 gram PO Q15M PRN (Reason: hypoglycemia) Qty: 30 0RF Patient Comments: relative states does not have because needed to pay rodriguez for them and did not have at the time. 09/01/2019 Rx Instructions: until response metformin 750 mg tablet extended release 24 hr 1,500 mg PO BID Patient Comments: TAKE 2 TABLETS BY MOUTH WITH EVENING MEAL Jardiance 25 mg PO DAILY amoxicillin-pot clavulanate 875-125 mg Tablet 1 tab PO BID Qty: 8 0RF Humulin R U-500 (Conc) Kwikpen 500 unit/mL (3 mL) insulin pen 115 unit SUBCUT QAM Qty: 30 0RF Humulin R U-500 (Conc) Kwikpen 500 unit/mL (3 mL) insulin pen 95 unit SUBCUT QPM Qty: 30 0RF Referrals: Arik Coles PA-C [Primary Care Provider] - Stand Alone Forms: Patient Portal/API
[2023-05-17] MEDS: TET,DIPH,PERTUSS(ACELL),VAC/PF 0.5 ML SYRINGE IM (12:24)
[2023-05-17 13:02] VITALS: PULSE 90
== END 2023-05-17 13:02 | disposition home or self-care (01) ==
PROVIDERS: Emergency Provider Emergency Medicine; PCP Physician Assistant
DX: S61.412A Laceration without foreign body of left hand, initial encounter (principal); W45.8XXA Other foreign body or object entering through skin, initial encounter; Y93.89 Activity, other specified; Z23 Encounter for immunization
CPT/HCPCS: 12002; 90471; 99283; 90715